=== PATIENT | male | born 1960 | race Caucasian/White ===

== ENCOUNTER → 2020-09-29 10:43 | Outpatient (BNVA) | payer SELFPAY | PROVIDERS: Visit Provider Dermatology | DX: Z01.89 Encounter for other specified special examinations (principal) ==

== ENCOUNTER → 2020-10-22 15:27 | Outpatient (BNVA) | payer MEDICAID, SELFPAY | PROVIDERS: Visit Provider Nurse Practitioner Family | DX: D64.9 Anemia, unspecified (principal); E55.9 Vitamin D deficiency, unspecified; E61.1 Iron deficiency; R19.5 Other fecal abnormalities | CPT/HCPCS: 82728; 83550; 85025 ==

== ENCOUNTER → 2020-10-26 08:32 | Outpatient (BNVA) | payer MEDICAID, SELFPAY | PROVIDERS: PCP Nurse Practitioner Family; Visit Provider Nurse Practitioner Family | DX: D64.9 Anemia, unspecified (principal); E61.1 Iron deficiency; R19.5 Other fecal abnormalities; R10.9 Unspecified abdominal pain; R10.84 Generalized abdominal pain; E55.9 Vitamin D deficiency, unspecified | CPT/HCPCS: 82270; 85025; 87506 ==

== ENCOUNTER 2020-11-05 09:29 | Outpatient (CLI) | payer MEDICAID, SELFPAY ==
[2020-11-05 10:05] LABS: Basophils % 0.4 %; Eosinophils # 0.2 10^3/uL (0.0-0.8); Eosinophils % 2.7 %; Hematocrit 33.7 % (42.0-52.0); Hemoglobin 9.4 g/dL (11.7-16.6); Lymphocytes # 2.1 10^3/uL (0.8-4.8); Mean Corpuscular HGB Conc 27.9 g/dL (30.0-36.0); Mean Corpuscular Volume 71.9 fL (80-94); Mean Platelet Volume 8.5 fL (7.4-10.4); Monocytes # 0.5 10^3/uL (0.2-0.9); Monocytes % 6.5 %; Neutrophils # 4.98 10^3/uL (1.8-7.7); Nucleated Red Blood Cells % 0 %; Platelet Count 358 10^3/cmm (130-400); Red Blood Count 4.69 10^6/uL (4.1-5.3); White Blood Count 7.9 10^3/uL (4.0-10.0)
[2020-11-05 10:45] LABS: Vitamin B12 651 pg/mL (232-1245)
[2020-11-05 11:50] LABS: Folate Level > 20.0 ng/mL (4.5-32.2)
--- NOTE | 2020-11-05 12:54 | ONC CON_ITS ---
Dr. Carr New Patient Note Patient: Vincent Casas Unit #: [id number]: 1960 Dicatated By: Rosemarie Carr M.D.Date of Visit: Nov 05, 2020 Onc MED New Patient/Consult Referring Physician: Marcelo Roberts History of Present Illness: Mr. Vincent Casas, is a 60-year-old gentleman with a history of progressive dyspnea on exertion, palpitation, epigastric/mid abdominal pain, dark-colored stools but no constipation he was evaluated by PMD recently and his lab work-up done on September 29, 2020 showed white blood count 8.5 hemoglobin 8.7 hematocrit 30.6 platelets 383,000 MCV 68.2 with a normal differential, iron studies done on October 22, 2020 shows ferritin 5, iron saturation 2.6, iron 13, TIBC 490, consistent with iron deficiency, patient was started on gkvo-rbx-wwbtxps oral iron 2 tablets a day and his repeat CBC on October 22, 2020 shows white blood count 6.9 hemoglobin 8.5 g hematocrit 27.2 platelets 395,000 MCV 64.1. Patient is tolerating oral iron well but still with off and on epigastric pain but no constipation, no fresh blood per rectum, no hemoptysis or hematemesis, no jaundice, no peripheral lymphadenopathy, no night sweats, no weight loss. Denies any hematuria or nosebleed. Never had colonoscopy done before, no family history of colon cancer. Denies smoking or alcohol use but showed tobacco, Patient denies any fever chills denies any nausea or vomiting denies any diarrhea or constipation, denies any dizziness or lightheadedness, denies any shortness of breath or palpitation at rest. Denies any headaches denies any peripheral neuropathy denies any history of anemia or blood transfusions in the past Past Medical History: Mr. Casas's medical history consists of vitamin D deficiency. Past Surgical History: There is no documented surgical history. Medications: B Complex 1 Tablet Oral daily, Daily Multiple Vitamins 1 Tablet Oral daily, Ferrous Sulfate 1 Tablet (of 325 (65 fe) mg) Oral daily, Weekly-D 1 Capsule (of 1.25 mg ) Oral q 7 days Allergies: No Known Allergies. Social History: Mr. Casas is . Mr. Casas has never smoked. He has no history of drinking. uses chewing tobacco daily. Family History: Mr. Casas's mother is alive. Mr. Casas's father at age 72. Review Of Symptoms: Review of Systems is not available for this patient. Vital Signs: Performed on Nov 05, 2020 11:29: 2, 28.26, 2.12 sq.m, 71 in, 97 %, 82 /min, 16 /min, 146/84 mm(hg) (HIGH), 98.7 F, and 202.6 lbs (HIGH). Performance Status: 0 - Fully active, able to carry on all predisease activities without restrictions. (ECOG) Physical Examination: ENMT - No mouth sores, no thrush, no jaundice no cervical lymphadenopathy, Respiratory - Lungs are clear to auscultation, Cardiovascular - Regular rate and rhythm of heart, Abdomen - Soft, bowel sounds present, No focal tenderness or rebound tenderness or mass palpable, Extremities - No visible edema. Lab/Imaging: Most recent lab results are not available for this patient. Impression: Iron deficiency anemia etiology, most likely due to chronic GI blood loss as his stool for occult bleeding were positive, his lab work-up done on September 29, 2020 showed white blood count 8.5 hemoglobin 8.7 hematocrit 30.6 platelets 383,000 MCV 68.2, iron studies done on October 22, 2020 confirmed ferritin 5, iron saturation 2.6%, iron 13, TIBC 490,B12 651, patient was started on oral iron by PMD on October 22, 2020 Plan: Discussed with patient regarding his labs showed white blood count 7.9 hemoglobin 9.4 g hematocrit 33.7 platelets 358,000 MCV 71.9 , Clinically, patient is feeling well, more energetic since on oral iron Patient is on ojsn-ukx-qrktqen oral iron since October 22, 2020, tolerating well. Patient has already been referred to Dr. Regalado for EGD and colonoscopy for iron deficiency anemia and Hemoccult-positive stools. As far as etiology of iron deficiency anemia is concerned, most likely due to chronic GI blood loss due to GI malignancy like colon cancer or peptic ulcer disease or hemorrhoids or diverticular bleed or small bowel AVMs or malabsorption. Patient was advised to take it easy, until his hemoglobin normalized In the meantime patient will continue with xsrm-qwi-aoikzpn oral iron pills, patient was advised to take 2 pills on empty stomach for better absorption and then he will return to clinic in 1 month with CBC and iron studies and will review his EGD and colonoscopy report Signed By: Rosemarie Carr M.D. <<Signature on File>>
== END 2020-11-05 09:30 | disposition home or self-care (01) ==
LOC: ONCMED 09:33
PROVIDERS: PCP Nurse Practitioner Family; Visit Provider Internal Medicine Hematology & Oncology
DX: D50.0 Iron deficiency anemia secondary to blood loss (chronic) (principal); E53.8 Deficiency of other specified B group vitamins; K90.9 Intestinal malabsorption, unspecified; Z79.899 Other long term (current) drug therapy
CPT/HCPCS: 36415; 82607; 82746; 85025; 99204

== ENCOUNTER → 2020-11-18 08:20 | Outpatient (BNVA) | payer MEDICAID, SELFPAY | PROVIDERS: PCP Nurse Practitioner Family; Visit Provider Surgery | DX: Z01.812 Encounter for preprocedural laboratory examination (principal); Z11.52 Encounter for screening for COVID-19; Z20.822 Contact with and (suspected) exposure to COVID-19 | CPT/HCPCS: 87635 ==

== ENCOUNTER 2020-11-23 06:31 | Day surgery (SDC) | payer MEDICAID, SELFPAY ==
[2020-11-18 13:49] VITALS: BMI 28.4
--- NOTE | 2020-11-23 06:52 | W.PM.OPSUD ---
Surgery/Procedure H&P Update DATE OF PROCEDURE: November 23, 2020 DATE H&P PERFORMED: 11/13/20 H&P UPDATE INFORMATION: I have reviewed H&P completed within last 30 days, I have examined patient prior to procedure and No changes to prior documentation PLANNED PROCEDURE: Operation Date: 11/23/20 08:00 Proposed Procedures p EGD/colon 52351 31078 D50.9(Not Applicable) - Otis Regalado MD s Colonoscopy(Not Applicable) - Otis Regalado MD
--- NOTE | 2020-11-23 06:53 | ANES.PREANE2 ---
Pre-Anesthetic Assessment Pre-Anesthetic Assessment: Height/Weight: Height 1.8 m Weight 92.533 kg Preop Diagnosis: anemia Proposed Procedure: Operation Date: 11/23/20 08:00 Proposed Procedures p EGD/colon 98383 90298 D50.9(Not Applicable) - Otis Regalado MD s Colonoscopy(Not Applicable) - Otis Regalado MD Familial anesthetic complications: None (no hx of anesthesia) Was Beta Karen taken within 24 hours: N/A Was Clonidine taken within 24 hours: N/A Last intake: > 8 HRS Social: Social History: No alcohol and No tobacco Exam: Pre-Anes Outpt Exam: alert, oriented x 3, clear to auscultation bilaterally and regular rate & rhythm Airway: Cervical ROM: WNL MP: 2 Dentition: Chipped CV/HEM: CV/HEM: Anemia GI: Comments: BRBPR Anesthetic Plan: ASA status: 1 Anesthesia: MAC Risk of > 500 ml blood loss (7ml/kg in children): No PFSH Anesthesia PFSH: Medical History Asthma Iron deficiency anemia Surgical History No significant past surgical history Family History Brother Hypertension Social History Smoking and tobacco status: never smoked Second hand smoke exposure: No Smoking risk assessment/counseling performed?: Yes Alcohol intake: never Desire information about alcohol rehabilitation?: No Counseling given: No Desire information about substance/drug rehabilitation?: No Counseling given: No Adopted: No Caregiver/support person: No Lives independently: Yes Household members: spouse Housing: House Marital status: Number of children: 2 Highest education level completed: High School Graduate service: No Current occupational status: employed History of recent travel: No Data Anesthesia Cardiac Studies: No Data to Display
[2020-11-23 07:06] VITALS: BP 143/91; PULSE 79; RESP 18; TEMP 36.3; O2SAT 97
[2020-11-23] MEDS: sodium chloride 0.9% 1,000 ML 30 ML IV (07:24)
[2020-11-23 08:27] VITALS: BP 100/68; PULSE 78; RESP 16; TEMP 36.4; O2SAT 97
[2020-11-23 08:40] VITALS: BP 108/68; PULSE 62; RESP 16; O2SAT 97
--- NOTE | 2020-11-23 09:18 | CT_ITS ---
WS: [id number] CT CHEST, ABDOMEN AND PELVIS WITH CONTRAST HISTORY: ascending colon mass TECHNIQUE: Contiguous 5 mm axial imaging performed through the chest, abdomen and pelvis with IV cont rast, oral contrast has been provided. Coronal and sagittal reformats chest. Coronal and sagittal ref ormats through the abdomen and pelvis. All CT scans at [facility] use at least one of the se dose optimization techniques: automated exposure control; mA and/or kV adjustment per patient size (includes targeted exams where dose is matched to clinical indication); or iterative reconstruction. CONTRAST: Omnipaque 300; 95 mL IV. DLP: 1576.98 mGy.cm COMPARISON: None available. Chest CT: Small soft tissue nodules along the RIGHT minor fissure most likely intrapulmonary nodules which are benign. The largest measures 5 mm. No mass. No pneumonia. No pericardial or pleural effusio ns. Mild atherosclerosis of aorta. Normal size pulmonary artery and aorta. Normal size heart. No hiat al hernia. Abdomen CT: Liver is normal size. No metastatic lesions within the liver. No bile duct dilatation. Po rtal vein is patent. Spleen, gallbladder, pancreas and adrenal glands are normal. No renal mass or ob struction. Very mild atherosclerosis aorta. No aneurysm. No ascites. Soft tissue mass extends over length of 5.6 cm in the ascending colon. Transverse diameter 4.7 cm. Th ere is partial intussusception at the site of the mass suggesting there is a lead component. There is no obstruction. There are numerous small adjacent lymph nodes along the ascending colon. Largest lym ph nodes measures 5 mm. The appendix is normal. There is no obstruction. Oral contrast is noted on wali th sides of the ascending colon mass. Pelvic CT: Normally distended urinary bladder. No free fluid or ascites. Normal prostate gland. No in guinal lymph nodes. Bilateral inguinal canals are patent. No metastatic lesions are noted within the visualized bone. CT/CT chest abd pel w con* IMPRESSION: 1. Ascending colon neoplasm extends over a length of 5.6 cm x 4.7 cm transvers carmelo. Focal intussusception of the ascending colon at the site of the mass. 2. Numerous small lymph nodes adjacent to the ascending colon suspicious for m etastatic disease. 3. No metastatic disease to the liver or adrenal glands.
[2020-11-23 09:52] LABS: Basophils % 0.4 %; Eosinophils # 0.2 10^3/uL (0.0-0.8); Eosinophils % 2.5 %; Hematocrit 41.3 % (42.0-52.0); Lymphocytes # 1.8 10^3/uL (0.8-4.8); Lymphocytes % 24.2 %; Mean Corpuscular HGB Conc 29.1 g/dL (30.0-36.0); Mean Corpuscular Volume 79.1 fl (80-94); Mean Platelet Volume 9.6 fL (7.4-10.4); Monocytes # 0.6 10^3/uL (0.2-0.9); Monocytes % 7.4 %; Neutrophils # 4.94 10^3/uL (1.8-7.7); Neutrophils % 65.2 %; Nucleated Red Blood Cells % 0 %; Platelet Count 312 10^3/cmm (130-400); Red Blood Count 5.22 10^6/uL (4.1-5.3); White Blood Count 7.6 10^3/uL (4.0-10.0)
[2020-11-23 10:37] LABS: Slide Review Slide Review Perform
[2020-11-23] MEDS: iohexol 300 mg/mL 100 mL Btl IV (10:41)
[2020-11-23] MEDS: iohexol 300 mg/mL 50 mL Btl PO (10:42)
[2020-11-23 10:51] LABS: Carcinoembryonic Antigen 0.9 ng/mL (0.0-4.7)
[2020-11-23 11:02] LABS: Alanine Aminotransferase 25 U/L (0-41); Albumin Level 4.6 g/dL (3.5-5.2); Alkaline Phosphatase 65 IU/L (40-130); Anion Gap 17.6 (5-19); Aspartate Amino Transferase 16 U/L (0-40); Blood Urea Nitrogen 18 mg/dL (6-20); Carbon Dioxide 21 mmol/L (22-29); Chloride 103 mmol/L (98-107); Globulin 2.5 g/dL (1.3-4.6); Glomerular Filtration Rate 86.4 mL/min (90-130); Glucose 81 mg/dL (65-115); Osmolality Calculated 285 mOsm/kg (285-295); Potassium 4.6 mmol/L (3.5-5.1); Sodium 137 mmol/L (136-145); Total Bilirubin 0.6 mg/dL (0.15-1.2); Total Protein 7.1 g/dL (6.6-8.7)
--- NOTE | 2020-11-23 15:08 | ANE.PACU2 ---
Inpatient post-anesthesia follow up: Airway intact: Yes Vital signs: Temperature 97.6 F Pulse Rate 62 Respiratory Rate 16 Blood Pressure 108/68 Pulse Oximetry 97 Oxygen Delivery Me thod Room Air Oxygen Flow Rate Fraction of Inspir ed Oxygen Hydration adequate: Yes Nausea and vomiting: No Pain level: 1 Mental status: Baseline
[2020-12-07 09:22] LABS: Miscellaneous Test See Scanned Lab Rpt
== END 2020-11-23 10:29 | disposition home or self-care (01) ==
PROVIDERS: PCP Nurse Practitioner Family; Visit Provider Surgery
PROC: 0DJ08ZZ Inspection of Upper Intestinal Tract, Via Natural or Artificial Opening Endoscopic (ICD-10-PCS; CPT 43235; principal; 2020-11-23 08:00)
PROC: 0DJD8ZZ Inspection of Lower Intestinal Tract, Via Natural or Artificial Opening Endoscopic (ICD-10-PCS; CPT 45378; 2020-11-23 08:00)
DX: D50.9 Iron deficiency anemia, unspecified (principal); Z80.0 Family history of malignant neoplasm of digestive organs; K29.70 Gastritis, unspecified, without bleeding; C18.2 Malignant neoplasm of ascending colon; D12.5 Benign neoplasm of sigmoid colon
CPT/HCPCS: 43235; 45380; 45381; 45385; 71260; 74177; 80053; 82378; 85025; 88305; 88341; 88342; 96360; 96361; J2704; J7030; Q9967

== ENCOUNTER → 2020-11-27 10:25 | Outpatient (BNVA) | payer OTHER, SELFPAY | PROVIDERS: PCP Nurse Practitioner Family; Visit Provider Surgery | DX: Z11.52 Encounter for screening for COVID-19 (principal) | CPT/HCPCS: 87635 ==

== ENCOUNTER 2020-12-02 16:34 | Inpatient (IN) | payer MEDICAID, SELFPAY ==
[2020-12-01 09:22] VITALS: BMI 27.8
[2020-12-02] VITALS (17 sets, daily range): BP systolic 112–144; BP diastolic 66–88; PULSE 57–87; RESP 14–18; TEMP 36.4–36.6; O2SAT 95–99; BMI 27.8
--- NOTE | 2020-12-02 09:52 | ECG_ITS ---
[facility] Test Date: 2020-12-02 Pat Name: Vincent Casas Department: Room: Gender: Male Mental Health Specialist: : 1960 Requested By: Bigg Strong Order Number: [id number] Epifanio MD: BRIE CLEARY Measurements Intervals Happy Rate: 74 P: 42 MT: 160 QRS: -32 QRSD: 80 T: 19 QT: 380 QTc: 423 Interpretive Statements SINUS RHYTHM WITH SINUS ARRHYTHMIA MARKED LEFT AXIS DEVIATION [QRS AXIS < -30] No previous ECG available for comparison Electronically Signed On 12-02-2020 21:10:39 CDT by BRIE CLEARY [id number]
--- NOTE | 2020-12-02 10:19 | ANES.PREANE2 ---
Pre-Anesthetic Assessment Pre-Anesthetic Assessment: Height/Weight: Height 1.8 m Weight 90.718 kg Temp Pulse Resp BP Pulse Ox 97.9 F 87 18 131/88 95 12/02/20 10:11 12/02/20 10:11 12/02/20 10:11 12/02/20 10:11 12/02/20 10:11 Preop Diagnosis: Ascending colon cancer Proposed Procedure: Operation Date: 12/02/20 11:05 Proposed Procedures p Laparoscopic Right Hemicolectomy 26132 C18.2(Not Applicable) - Otis Regalado MD Was Beta Karen taken within 24 hours: N/A Was Clonidine taken within 24 hours: N/A Last intake: Intake Last Liquid Date 12/01/20 Last Liquid Time 22:00 Last Solid Date 11/30/20 Last Solid Time 20:00 Social: Social History: No alcohol and No tobacco Exam: Pre-Anes Outpt Exam: alert, oriented x 3, clear to auscultation bilaterally and regular rate & rhythm Airway: Submandibular: WNL Cervical ROM: WNL MP: 2 Dentition: Chipped CV/HEM: CV/HEM: Anemia Anesthetic Plan: ASA status: 2 Anesthesia: General Risk of > 500 ml blood loss (7ml/kg in children): No PFSH Anesthesia PFSH: Medical History (Updated 11/27/20 @ 12:19 by Otis Regalado MD) Asthma Colon cancer, ascending Surgical History H/O esophagogastroduodenoscopy (11/23/20) Status post colonoscopy (11/23/20) Family History Brother Hypertension Social History Second hand smoke exposure: No Smoking risk assessment/counseling performed?: Yes Alcohol intake: never Desire information about alcohol rehabilitation?: No Counseling given: No Desire information about substance/drug rehabilitation?: No Counseling given: No Adopted: No Caregiver/support person: No Lives independently: Yes Household members: spouse Housing: House Marital status: Number of children: 2 Highest education level completed: High School Graduate service: No Current occupational status: employed History of recent travel: No Data Anesthesia Cardiac Studies: No Data to Display
[2020-12-02] MEDS: sodium chloride 0.9% 1,000 ML 30 ML IV (10:43)
--- NOTE | 2020-12-02 11:04 | W.PM.OPSUD ---
Surgery/Procedure H&P Update DATE OF PROCEDURE: December 02, 2020 DATE H&P PERFORMED: 11/27/20 H&P UPDATE INFORMATION: I have reviewed H&P completed within last 30 days, I have examined patient prior to procedure and No changes to prior documentation PREOP DIAGNOSIS: Ascending colon cancer PLANNED PROCEDURE: Operation Date: 12/02/20 11:05 Proposed Procedures p Laparoscopic Right Hemicolectomy 49465 C18.2(Not Applicable) - Otis Regalado MD
--- NOTE | 2020-12-02 15:09 | P.OP_ITS ---
Operative Report Date of procedure: December 02, 2020 Pre-op Diagnosis: Adenocarcinoma ascending colon Post-op Diagnosis: Adenocarcinoma of the ascending colon No evidence of peritoneal carcinomatosis No evidence of liver metastasis Procedure Done: Laparoscopic extended right hemicolectomy with extracorporeal ileocolic stapled wyud-na-yhww anastomosis Specimens removed/disposition: Extended right hemicolectomy specimen including ileum, cecum, appendix, ascending colon, proximal two thirds of transverse colon Surgeon: Otis Regalado Anesthesia: General Estimated blood loss (mL): 25 IV fluids (mL): 1,000 Urine output (mL): 200 Condition: stable Disposition: PACU Procedure: The patient was taken to the operating room and placed in supine position under general anesthesia after IV antibiotic had been administered. A Ching catheter was placed and the abdomen was prepped and draped in a sterile manner. A 2 cm midline supraumbilical incision was made and using open Galvan technique the peritoneal cavity was entered and an 11 mm port was placed and 15 mm of pneumoperitoneum was created. 10 mm 30? scope was introduced. 5 mm port was placed in the right upper quadrant, left upper quadrant and in the suprapubic area under direct visualization. The patient was placed in Trendelenburg position and steep tilt to the left placing the small bowel in the left side within the peritoneal cavity and the transverse colon was retracted superiorly. The cecum was retracted laterally and the tenting of the ileocolic pedicle was noted. The peritoneum overlying the pedicle was opened near the SMA and a window created posterior to the pedicle over the third portion of the duodenum. Dissection was carried superiorly and lateral to the duodenum along the avascular plane. Using Endoseal the ileocolic pedicle was divided. The avascular plane was dissected laterally towards the right paracolic gutter and superiorly towards the hepatic flexure. The stomach was retracted superiorly and the transverse colon retracted inferiorly and the anterior leaflet of the greater omentum was opened to enter the lesser sac. Using energy device the omentum was divided up to the hepatic flexure to completely mobilize the transverse colon from the stomach as well divide the greater omentum from the remaining portion of the transverse colon. The transverse mesocolon was divided using Endoseal and this was continued medially. The right and left branch of mid colic vessels were skeletonized just anterior to the head of the pancreas and divided with Endoseal. The anterior leaflet of the greater omentum was divided near the midpoint of the transverse colon to enter the lesser sac. The dissection was carried along the line of Toldt until the ascending colon and down to ileum to completely free it up. The mesentery of the terminal ileum was divided using LigaSure. 20 cc of saline mixed with 20 cc of 0.5% Marcaine mixed with 20 cc of Exparel wa s injected in the midclavicular line under laparoscopic visualization for a TAP block. At this point the pneumoperitoneum was released and the mobilized colon and small bowel was exteriorized through the umbilical incision which had been extended and a wound protector had been placed. Interrupted 4-0 Vicryl suture was placed to approximate the ileum to the transverse colon and enterotomies were created on the transverse colon and small bowel and and 75 mm blue load NURA stapler was introduced and fired creating a liet-od-fgwn stapled anastomosis. There was no bleeding noted from the staple line and enterotomies were grasped with Allis clamps and another load of 75 mm blue load NURA stapler was fired to resect the specimen distal to the enterotomies. The bowel was reintroduced into the peritoneal cavity and the staple line was covered with omentum. All ports were removed under direct visualization and there was no bleeding noted from the port sites. The fascia at the midline incision was closed using running #1 loop PDS. The wound was irrigated with saline, and subcutaneous tissue approximated using 3-0 Vicryl suture and skin at all 4 port sites were closed with 4-0 Monocryl and Dermabond. The patient was transferred to the recovery room in stable condition with a Ching catheter.
[2020-12-02] MEDS: HYDROmorphone 1 mg/mL INJ 1 mL 0.5 MG IVP ×2 (15:29→16:26)
--- NOTE | 2020-12-02 16:41 | SUR.PHASEI ---
PT RESTING QUIETLY WITH GOOD RESP EFFORT PT ON 3NC SATS 96-97% NO DISTRESS NOTED ABD SOFT 3 SITES D/I WITH DERMABOND GREEN TO DD WITH YELLOW URINE, IV PATENT UPDATED REPEATEDLY, INFORM ED PT IS SLEEPING , VSS WAITING FOR ROOM TO BE CLEANED. SEE EARLIER MEDS GIVEN FOR PAIN, PT HAS NO PAIN NOW, WILL CALL REPORT TO THE FLOOR.
--- NOTE | 2020-12-02 17:50 | ANE.PACU2 ---
Inpatient post-anesthesia follow up: Airway intact: Yes Vital signs: Temperature 97.6 F Pulse Rate 63 Respiratory Rate 15 Blood Pressure 127/72 Pulse Oximetry 97 Oxygen Delivery Me thod Nasal Cannula Oxygen Flow Rate 3 Fraction of Inspir ed Oxygen Hydration adequate: Yes Nausea and vomiting: No Pain level: 2 Mental status: Baseline
[2020-12-02] MEDS: famotidine 20 mg/2 mL INJ IVP (18:25)
[2020-12-02] MEDS: morphine 4 mg/mL SDV 1 mL 3 MG IVP ×2 (18:25→22:31)
[2020-12-02] MEDS: sennosides-docusate Tablet 1 TAB PO (18:25)
[2020-12-02] MEDS: D5-NS 0.45% + KCL 20 mEq 20 MEQ/1,000 ML BAG 100 MEQ IV (18:26)
[2020-12-02] MEDS: metroNIDAZOLE IV 500 MG/100 ML PREMIX 100 MG IV (22:31)
[2020-12-02] MEDS: HYDROcodone-acetaminophen 5-325 mg Tablet 1 TAB PO (22:31)
[2020-12-03] VITALS (11 sets, daily range): BP systolic 123–171; BP diastolic 70–88; PULSE 60–82; RESP 14–18; TEMP 36.3–37.2; O2SAT 94–97
[2020-12-03 04:01] LABS: Basophils % 0.1 %; Hematocrit 39.3 % (42.0-52.0); Hemoglobin 11.8 g/dL (11.7-16.6); Lymphocytes # 0.9 10^3/uL (0.8-4.8); Lymphocytes % 9.7 %; Mean Corpuscular Hemoglobin 23.8 pg (28.0-34.0); Mean Corpuscular Volume 79.4 fl (80-94); Mean Platelet Volume 9.1 fL (7.4-10.4); Monocytes # 0.3 10^3/uL (0.2-0.9); Monocytes % 3.3 %; Neutrophils # 7.86 10^3/uL (1.8-7.7); Neutrophils % 86.6 %; Nucleated Red Blood Cells % 0 %; Platelet Count 313 10^3/cmm (130-400); Red Blood Count 4.95 10^6/uL (4.1-5.3)
[2020-12-03] MEDS: D5-NS 0.45% + KCL 20 mEq 20 MEQ/1,000 ML BAG 100 MEQ IV (04:19)
[2020-12-03] MEDS: HYDROcodone-acetaminophen 5-325 mg Tablet 1 TAB PO ×2 (04:28→12:03)
[2020-12-03 04:32] LABS: Anion Gap 16.9 (5-19); Blood Urea Nitrogen 18 mg/dL (6-20); Calcium 8.2 mg/dL (8.5-10.5); Carbon Dioxide 19 mmol/L (22-29); Chloride 106 mmol/L (98-107); Glomerular Filtration Rate 68.5 mL/min (90-130); Glucose 175 mg/dL (65-115); Osmolality Calculated 290 mOsm/kg (285-295); Potassium 4.9 mmol/L (3.5-5.1); Slide Review Slide Review Perform; Sodium 137 mmol/L (136-145)
[2020-12-03] MEDS: metroNIDAZOLE IV 500 MG/100 ML PREMIX 100 MG IV (05:57)
[2020-12-03] MEDS: famotidine 20 mg/2 mL INJ IVP ×2 (05:57→18:24)
[2020-12-03] MEDS: morphine 4 mg/mL SDV 1 mL 3 MG IVP (05:57)
[2020-12-03] MEDS: ondansetron 2 mg/ML SDV 2 mL 4 MG IVP (06:01)
[2020-12-03] MEDS: sennosides-docusate Tablet 1 TAB PO ×2 (09:03→18:24)
--- NOTE | 2020-12-03 10:09 | PC.NURSE ---
Removed eric catheter. 9mL NS drained from balloon. Patient tolerated well. 600mL of Clear yellow urine drained from eric bag. Urinal at bedside for patient to use.
--- NOTE | 2020-12-03 10:15 | PM.PN ---
Subjective Subjective: Interval history: Patient had significant pain overnight which was controlled with morphine and [place] and he had some nausea, no vomiting, no flatus or BM. Good urine output output overnight Vitals/I&O/Wt Last Vital Signs Temp 98.9 F 12/03/20 07:31 Pulse 73 12/03/20 07:31 Resp 14 12/03/20 07:31 BP 141/70 12/03/20 07:31 Pulse Ox 96 12/03/20 07:31 12/02/20 12/03/20 12/03/20 22:59 06:59 14:59 Intake Total 401 / 2535.309 7231.333 / 1709.333 360 / 360 Output Total 425 / 1825 1400 / 1825 600 / 600 Balance -24 / -115.667 -151.667 / -115.667 -240 / -240 Weight last 48 hrs Weight 200 lb Physical Exam Narrative: EXAM NARRATIVE: Abdomen: Soft, tender, nondistended, incision clean dry and intact Urinary Catheter Management^: Ching: Cath Placed During This Visit: yes Reason for Continuing Indwelling Catheter: Required Immobilization for Trauma or Surgery or Anesthesia Urinary Catheter Date of Insertion: 12/02/20 Urinary Catheter Time of Insertion: 12:35 Data : 12/03/20 03:10 12/03/20 03:10 A&P Assessment and plan (1) S/P right hemicolectomy: Status post extended right hemicolectomy with postop ileus DC Ching DC IV fluids DC IV antibiotics after 2 postop doses Start clear liquid diet IV fluids at 30 cc/h Ambulate ad maria alejandra. IS Lovenox/ SCD for DVT prophylaxis Pepcid for GI prophylaxis Morphine [place] Tylenol for pain control Senna S for bowel regimen Patient will need greater than 2 nights of inpatient stay to ensure resolution of ileus Status: Acute Attestations Medical Necessity Statement*: Postop ileus requiring continued inpatient stay Coding Level of Care Code Acute Online Publisher for Johan Romero Diagnoses S/P right hemicolectomy Z90.49
--- NOTE | 2020-12-03 11:10 | PC.NURSE ---
The patient has been walking in his room.
--- NOTE | 2020-12-03 11:19 | PC.CHAP ---
Pastoral Care Encounter/Spiritual Assessment Type of Contact [] Declined head correction officer visit [] Patient/Family/Request visit [] Outpatient visit [] Follow-up visit [] Physician referral [] Code/Alert [x] Routine visit [] Staff referral [] Actively dying [] Patient sleeping [] Family support [] [] Out of room [] Palliative care [] [x] Receiving care in room [] Pre-surgical visit [] Trauma [] Long length of stay [] ICU visit [] Other: Relational/Emotional Strength [x] Patient feels connected with others/family/visitors/staff [] Distress [] Loneliness/isolation [] Abandonment Spirituality of Patient [x] Person of Araseli [] Attends Mosque of their Araseli [x] Believes in Prayer [] Reads Bible or Tenriism materials [] There are Spiritual issues to be addressed Missile Inspector Preflight Interventions [x] Prayer [x] Active listening [x] Non-anxious presence [x] Spiritual/emotional support [] Crisis/trauma care [x] Spiritual counseling [] Bereavement support [] Provided bereavement packet [] Provided Bible/devotional materials [] Provided toy/stuffed animal, coloring book to patient or family member [] Provided Communion [] Anointing/[place] [] Salvation [x] Completed spiritual assessment [] Other: Impact on Illness or Injury [] Angry [x] Fearful [] Anxious [] Often cries [] Exhaustion [] Unable to work [] Unable to attend scientologist [] Unable to walk/stand [] Unable to read [] Unable to drive [] Unable to eat/drink [] Unable to sleep [] Unable to be with family [] Patient intubated [] Other: Summary he has just found out that he cancer, waiting hear doctor about what kind of treatment he will need has a good attitude will go home Time spent with patient 10 mins
[2020-12-03] MEDS: enoxaparin 40 mg/0.4 mL Syringe SUBCUT (18:24)
[2020-12-04] MEDS: HYDROcodone-acetaminophen 5-325 mg Tablet 1 TAB PO (02:10)
[2020-12-04 02:40] LABS: Basophils % 0.2 %; Eosinophils # 0.2 10^3/uL (0.0-0.8); Eosinophils % 1.4 %; Hemoglobin 11.5 g/dL (11.7-16.6); Lymphocytes # 2.7 10^3/uL (0.8-4.8); Lymphocytes % 24.8 %; Mean Corpuscular HGB Conc 31.1 g/dL (30.0-36.0); Mean Corpuscular Hemoglobin 24.5 pg (28.0-34.0); Mean Corpuscular Volume 78.9 fl (80-94); Mean Platelet Volume 8.5 fL (7.4-10.4); Monocytes # 0.8 10^3/uL (0.2-0.9); Neutrophils # 7.14 10^3/uL (1.8-7.7); Neutrophils % 66.4 %; Nucleated Red Blood Cells % 0 %; Platelet Count 310 10^3/cmm (130-400); Red Blood Count 4.69 10^6/uL (4.1-5.3); White Blood Count 10.8 10^3/uL (4.0-10.0)
[2020-12-04 02:47] LABS: Slide Review Slide Review Perform
[2020-12-04 03:11] LABS: Anion Gap 14.1 (5-19); Blood Urea Nitrogen 13 mg/dL (6-20); Calcium 8.4 mg/dL (8.5-10.5); Carbon Dioxide 24 mmol/L (22-29); Chloride 105 mmol/L (98-107); Glomerular Filtration Rate 76.5 mL/min (90-130); Glucose 143 mg/dL (65-115); Osmolality Calculated 291 mOsm/kg (285-295); Potassium 4.1 mmol/L (3.5-5.1); Sodium 139 mmol/L (136-145)
[2020-12-04 03:25] VITALS: BP 160/91; PULSE 76; RESP 16; TEMP 36.7; O2SAT 96
[2020-12-04] MEDS: famotidine 20 mg/2 mL INJ IVP ×2 (05:10→17:54)
[2020-12-04 08:00] VITALS: BP 162/97; PULSE 71; RESP 17; TEMP 36.8; O2SAT 93
[2020-12-04] MEDS: sennosides-docusate Tablet 1 TAB PO ×2 (09:38→17:54)
[2020-12-04] MEDS: D5-NS 0.45% + KCL 20 mEq 20 MEQ/1,000 ML BAG 100 MEQ IV (09:38)
[2020-12-04 12:00] VITALS: BP 168/91; PULSE 73; RESP 17; TEMP 36.9; O2SAT 95
--- NOTE | 2020-12-04 13:34 | PM.PN ---
Subjective Subjective: Interval history: Patient had better night, no nausea, no vomiting, no flatus or BM. Good urine output overnight Vitals/I&O/Wt Last Vital Signs Temp 98.5 F 12/04/20 12:00 Pulse 73 12/04/20 12:00 Resp 17 12/04/20 12:00 BP 168/91 12/04/20 12:00 Pulse Ox 95 12/04/20 12:00 12/03/20 12/04/20 12/04/20 22:59 06:59 14:59 Intake Total 480 / 2080 Balance 480 / 1480 Weight last 48 hrs Weight 200 lb Physical Exam Narrative: EXAM NARRATIVE: Abdomen: Soft, not tender, nondistended, incision clean dry intact Urinary Catheter Management^: Ching: Cath Placed During This Visit: yes, but has since been removed by the nurse Reason for Continuing Indwelling Catheter: Required Immobilization for Trauma or Surgery or Anesthesia Urinary Catheter Date of Insertion: 12/02/20 Urinary Catheter Time of Insertion: 12:35 Date Urinary Catheter Removed: 12/03/20 Time Urinary Catheter Discontinued: 10:17 Data : 12/04/20 01:57 12/04/20 01:57 A&P Assessment and plan (1) S/P right hemicolectomy: Status post extended right hemicolectomy with postop ileus clear liquid diet IV fluids at 30 cc/h Ambulate ad maria alejandra. IS Lovenox/ SCD for DVT prophylaxis Pepcid for GI prophylaxis Morphine [place] Tylenol for pain control Senna S for bowel regimen Patient will need greater than 2 nights of inpatient stay to ensure resolution of ileus Status: Acute Attestations Medical Necessity Statement*: postop ileus requiring continued inpatient stay Coding Level of Care Code Acute Printing Sales Representative for g Fwd Diagnoses S/P right hemicolectomy Z90.49
--- NOTE | 2020-12-04 15:21 | PC.CHAP ---
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 visit [] Patient/Family/Request visit [] Outpatient visit [xx] Follow-up visit [] Physician referral [] Code/Alert [] Routine visit [] Staff referral [] Actively dying [] Patient sleeping [] Family support [] [] Out of room [] Palliative care [] [xx] Receiving care in room [] Pre-surgical visit [] Trauma [] Long length of stay [] ICU visit [] Other: Relational/Emotional Strength [] Patient feels connected with others/family/visitors/staff [] Distress [] Loneliness/isolation [] Abandonment Spirituality of Patient [] Person of Araseli [] Attends Holiness of their Araseli [] Believes in Prayer [] Reads Bible or Christianity materials [] There are Spiritual issues to be addressed Doctor Of Audiology Interventions [] Prayer [] Active listening [] Non-anxious presence [] Spiritual/emotional support [] Crisis/trauma care [] Spiritual counseling [] Bereavement support [] Provided bereavement packet [] Provided Bible/devotional materials [] Provided toy/stuffed animal, coloring book to patient or family member [] Provided Communion [] Anointing/[place] [] Salvation [] Completed spiritual assessment [] Other: Impact on Illness or Injury [] Angry [] Fearful [] Anxious [] Often cries [] Exhaustion [] Unable to work [] Unable to attend pentecostalism [] Unable to walk/stand [] Unable to read [] Unable to drive [] Unable to eat/drink [] Unable to sleep [] Unable to be with family [] Patient intubated [] Other: Summary Follow up needed. Time spent with patient
[2020-12-04] MEDS: enoxaparin 40 mg/0.4 mL Syringe SUBCUT (15:46)
[2020-12-04 15:52] VITALS: BP 162/96; PULSE 71; RESP 17; TEMP 36.6; O2SAT 95
[2020-12-04 20:00] VITALS: BP 168/90; PULSE 68; RESP 17; TEMP 37.2; O2SAT 95
[2020-12-05 00:11] VITALS: BP 147/82; PULSE 76; RESP 18; TEMP 36.9; O2SAT 96
[2020-12-05 03:20] VITALS: BP 149/84; PULSE 68; RESP 16; TEMP 36.8; O2SAT 94
[2020-12-05] MEDS: famotidine 20 mg/2 mL INJ IVP (05:01)
[2020-12-05 07:05] LABS: Basophils % 0.2 %; Eosinophils # 0.3 10^3/uL (0.0-0.8); Eosinophils % 3.5 %; Hematocrit 40.4 % (42.0-52.0); Hemoglobin 12.4 g/dL (11.7-16.6); Lymphocytes # 2.8 10^3/uL (0.8-4.8); Lymphocytes % 32.7 %; Mean Corpuscular HGB Conc 30.7 g/dL (30.0-36.0); Mean Corpuscular Hemoglobin 24.2 pg (28.0-34.0); Mean Corpuscular Volume 78.8 fl (80-94); Mean Platelet Volume 8.7 fL (7.4-10.4); Monocytes # 0.7 10^3/uL (0.2-0.9); Monocytes % 8.7 %; Neutrophils # 4.63 10^3/uL (1.8-7.7); Neutrophils % 54.7 %; Nucleated Red Blood Cells % 0 %; Platelet Count 337 10^3/cmm (130-400); Red Blood Count 5.13 10^6/uL (4.1-5.3); White Blood Count 8.5 10^3/uL (4.0-10.0)
[2020-12-05 07:37] LABS: Blood Urea Nitrogen 10 mg/dL (6-20); Calcium 8.9 mg/dL (8.5-10.5); Carbon Dioxide 25 mmol/L (22-29); Chloride 103 mmol/L (98-107); Glomerular Filtration Rate 98.9 mL/min (90-130); Glucose 92 mg/dL (65-115); Osmolality Calculated 289 mOsm/kg (285-295); Sodium 140 mmol/L (136-145)
[2020-12-05 07:47] VITALS: BP 130/86; PULSE 80; RESP 17; TEMP 36.6; O2SAT 95
[2020-12-05] MEDS: sennosides-docusate Tablet 1 TAB PO (08:11)
--- NOTE | 2020-12-05 11:29 | P.PN_ITS ---
Subjective Subjective: Interval history: Patient doing well denies any pain has not taken any pain medicines yesterday, passing flatus, but no BM, no nausea or vomiting, tolerating full liquid diet Vitals/I&O/Wt Last Vital Signs Temp 97.8 F 12/05/20 07:47 Pulse 80 12/05/20 07:47 Resp 17 12/05/20 07:47 BP 130/86 12/05/20 07:47 Pulse Ox 95 12/05/20 07:47 12/04/20 12/05/20 12/05/20 22:59 06:59 14:59 Intake Total 1000 / 1300 300 / 1300 Balance 1000 / 1300 300 / 1300 Physical Exam Narrative: EXAM NARRATIVE: Abdomen: Soft, nontender, not from incisions healing well Urinary Catheter Management^: Ching: Cath Placed During This Visit: yes, but has since been removed by the nurse Reason for Continuing Indwelling Catheter: Required Immobilization for Trauma or Surgery or Anesthesia Urinary Catheter Date of Insertion: 12/02/20 Urinary Catheter Time of Insertion: 12:35 Date Urinary Catheter Removed: 12/03/20 Time Urinary Catheter Discontinued: 10:17 Data : 12/05/20 06:10 12/05/20 06:10 A&P Assessment and plan (1) S/P right hemicolectomy: Status post extended right hemicolectomy with postop ileus DC home on full liquid diet, advance as tolerated once he starts having bowel movements. Patient has been discharged home today since his mother on the day of his surgery and is having a in couple of days in [place] Status: Acute Attestations Medical Necessity Statement*: DC home today Coding Level of Care Code Acute Specifications Writer for Chg Fwd Diagnoses S/P right hemicolectomy Z90.49
[2020-12-05 11:30] VITALS: BP 130/86; PULSE 80; RESP 17; TEMP 36.6; O2SAT 95
--- NOTE | 2020-12-05 11:30 | P.DS_ITS ---
Discharge Providers Date of Admission: 12/02/20 16:34 Date of Discharge: December 05, 2020 Attending Provider at Admission: Otis Regalado MD Attending Provider at Discharge: Otis Regalado MD Primary Care Provider: MARANDA Roberts Diagnoses at Discharge Discharge Diagnosis (1) S/P right hemicolectomy: Status: Acute Permanent problem details: Extended for ascending colon cancer Reason for Visit Reason for Visit: colon cancer Hospital Course Hospital Course This a 60-year-old male with iron deficiency anemia noted on colonoscopy to have ascending colon cancer. Patient underwent extended right hemicolectomy. By postop day 3 he was passing flatus and tolerating a full liquid diet. His vital signs are stable. His incisions are clean dry and intact. Physical Exam Urinary Catheter Management^: Ching: Cath Placed During This Visit: yes, but has since been removed by the nurse Reason for Continuing Indwelling Catheter: Required Immobilization for Trauma or Surgery or Anesthesia Urinary Catheter Date of Insertion: 12/02/20 Urinary Catheter Time of Insertion: 12:35 Date Urinary Catheter Removed: 12/03/20 Time Urinary Catheter Discontinued: 10:17 Discharge Data Data Completed and Pending: Pending at discharge Category Date Time Status Pathology: Surgic al [PTH] Routine Pth 12/02/20 14:57 Received Labs from last 24 hours 12/05/20 12/05/20 06:10 06:10 WBC 8.5 RBC 5.13 Hgb 12.4 Hct 40.4 L MCV 78.8 L MCH 24.2 L MCHC 30.7 RDW Not Reportable Plt Count 337 MPV 8.7 Neut % (Auto) 54.7 Lymph % (Auto) 32.7 [place] % (Auto) 8.7 Eos % (Auto) 3.5 Baso % (Auto) 0.2 Neut # (Auto) 4.63 Lymph # (Auto) 2.8 [place] # (Auto) 0.7 Eos # (Auto) 0.3 Baso # (Auto) 0.0 Nucleated RBC % (a uto) 0 Nucleated RBCs # 0.0 Sodium 140 Potassium 4.0 Chloride 103 Carbon Dioxide 25 Anion Gap 16.0 BUN 10 Creatinine 0.8 GFR Calculation 98.9 Glucose 92 Calculated Osmolal ity 289 Calcium 8.9 Vitals: Last Vital Signs Temp 97.8 F 12/05/20 11:30 Pulse 80 12/05/20 11:30 Resp 17 12/05/20 11:30 BP 130/86 12/05/20 11:30 Pulse Ox 95 12/05/20 11:30 Discharge Plan Discharge Patient Disposition: Home Condition: Stable Prescriptions: New hydrocodone-acetaminophen 5-325 mg tablet 1 tab PO Q6H PRN (Reason: pain) Qty: 20 RF: 0 Zofran 4 mg tablet 4 mg PO Q6H PRN (Reason: nausea and vomiting) Qty: 20 RF: 0 Senna with Docusate Sodium 8.6-50 mg tablet 1 tab-cap PO BID Qty: 30 RF: 0 Continued B-complex with vitamin C Tablet 1 tab PO DAILY RF: 0 ferrous gluconate 324 mg (38 mg iron) tablet 324 mg PO BID 30 Days Qty: 60 RF: 2 cholecalciferol (vitamin D3) 1,250 mcg (50,000 unit) capsule 50,000 unit PO .weekly 28 Days Qty: 4 RF: 2 Discontinued erythromycin 500 mg tablet 500 mg PO ONCE 3 Days Qty: 3 RF: 0 Discharge Orders: Discharge Order (Routine); Ordered 12/05/20 Ordered By: Otis Regalado Referrals: Otis Regalado MD [Physician] - 2 weeks (Please call on Monday to schedule an appointment to be seen in two weeks.) Patient Instructions: Hydrocodone/Acetaminophen (By mouth), Laxative, Stimulant (By mouth), Ondansetron (By mouth), Laxative, Stimulant Combination (By mouth), Colectomy (DC), Laparoscopic Bowel Resection (DC), Opioid Safety Activity Restrictions/Additional Instructions: Diet Continue full liquid diet, advance to GI soft diet once you start having bowel movements, increase fluid intake as much as possible. Avoid roughage and red meats. Have 4-5 small meals a day. Activity Avoid strenuous activity for 2 weeks but continue with daily activities including walking as tolerated. Do not lift more than 10 pounds for 2 weeks Return to work/school You can return to work/ school whenever you feel ready as long as you don?t have to lift more than 10 pounds at work. If you have paperwork that needs to be completed for time off from work, please contact my office Driving You can resume driving once you stop using narcotic pain medications, and transition to non-opioid pain medications like Tylenol, Motrin, Aleve, etc. Medications Pain Take opioid pain medications as prescribed and transition to non-opioid pain medications like Tylenol, Motrin, Aleve etc. over the next few days. The goal of the pain medications is to make the pain bearable and not to be pain free since you recently had surgery. Resume all home medications after surgery as per the medication reconciliation list Nausea Nausea is common after surgery, take nausea medications as needed and stay on a liquid bland diet until nausea resolves. Constipation The combination of surgery, anesthesia and pain medications can result in constipation. Take stool softeners as prescribed. If you do not have a bowel movement in 3 days, please take an [id number] laxative like MiraLAX to address the constipation. Shower It is ok to shower but avoid getting the wound wet for 48 hours after surgery. Do not soak in bathtub, swimming pool or hot tub for 2 weeks. Wound care If glue has been used on your incisions after surgery, the glue on the incision will peel slowly over the next two weeks. The stitches used are dissolvable and will not need to be removed. Do not apply antibiotics or other medications on the incision Problems with the wound: you can develop some redness around the incision from bruising after surgery. If there is increasing pain, redness, tenderness around the incision with or without drainage, please contact my office to rule out an infection. Sometimes the skin at the incisions can separate, resulting in reopening of the wound. Cover the wound with antibiotic cream and sterile dressings and contact my office. Contact physician Call the office at [phone] during office hours or go the Emergency Room ?Fever to 100.4 or greater ?Shaking chills ?Pain that increases over time ?Redness, warmth, or pus draining from incision sites ?Persistent nausea or inability to take in liquids Discharge Attestations Time Spent in Discharge Care*: less than 30 min Quality Metrics Clinical Quality Measures During this hospital stay, did patient experience: None Coding Level of Care Code Acute [facility] FW MA note Diagnoses S/P right hemicolectomy Z90.49
[2020-12-05 13:24] VITALS: BP 130/86; PULSE 80; RESP 17; TEMP 36.6; O2SAT 95
[2020-12-17 10:18] LABS: Miscellaneous Test See Scanned Lab Rpt
== END 2020-12-05 13:25 | disposition home or self-care (01) | DRG 331 ==
LOC: MEDSURG 16:35
PROVIDERS: Admitting Provider Surgery; PCP Nurse Practitioner Family; Visit Provider Surgery
PROC: 0DTF4ZZ Resection of Right Large Intestine, Percutaneous Endoscopic Approach (ICD-10-PCS; CPT 44205; principal; 2020-12-02 10:55)
DX: C18.2 Malignant neoplasm of ascending colon (principal); J45.909 Unspecified asthma, uncomplicated; D50.9 Iron deficiency anemia, unspecified
CPT/HCPCS: 36415; 51702; 80048; 85025; 88309; 88341; 88342; 93005; 96365; 96372; 97161; J0690; J1100; J1170; J1650; J2270; J2405; J2704; J2710; J3010; J3490; J7030; S0030

== ENCOUNTER → 2021-03-19 08:35 | Outpatient (BNVA) | payer MEDICAID, SELFPAY | PROVIDERS: PCP Nurse Practitioner Family; Visit Provider Nurse Practitioner Family | DX: D50.9 Iron deficiency anemia, unspecified (principal) | CPT/HCPCS: 83540; 85025 ==

== ENCOUNTER → 2021-08-02 16:06 | Outpatient (BNVA) | payer MEDICAID, SELFPAY | PROVIDERS: PCP Nurse Practitioner Family; Referring Provider Nurse Practitioner Family; Visit Provider Otolaryngology | DX: D49.1 Neoplasm of unspecified behavior of respiratory system (principal) | CPT/HCPCS: 99204 ==

== ENCOUNTER 2021-08-12 10:12 | Day surgery (SDC) | payer MEDICAID, SELFPAY ==
[2021-08-10 11:45] VITALS: BMI 27.8
[2021-08-12] VITALS (7 sets, daily range): BP systolic 147–175; BP diastolic 87–101; PULSE 65–85; RESP 12–18; TEMP 36.3–36.8; O2SAT 93–99
--- NOTE | 2021-08-12 10:49 | W.PM.OPSUD ---
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
[2021-08-12] MEDS: scopolamine 1.5 Patch 1 PATCH TRANSDERMA (10:58)
[2021-08-12] MEDS: sodium chloride 0.9% 1,000 ML 30 ML IV (11:00)
--- NOTE | 2021-08-12 11:07 | P.ANESASSM_ITS ---
Pre-Anesthetic Assessment Height/Weight: Height 1.8 m Weight 90.718 kg Temp Pulse Resp BP Pulse Ox 98.2 F 65 18 161/92 99 08/12/21 10:30 08/12/21 10:30 08/12/21 10:30 08/12/21 10:30 08/12/21 10:30 Preop Diagnosis: Neoplasm of left nasal vestibule Operation Date: 08/12/21 11:25 Proposed Procedures p Excision Nasal Mass/Lesion/11964/D49.1 neoplasm of nasal vestibule(Left) - Maury Calvert MD Familial anesthetic complications: None Was Beta Karen taken within 24 hours: N/A Was Clonidine taken within 24 hours: N/A Last intake: Intake Last Liquid Date 08/11/21 Last Liquid Time 19:00 Last Solid Date 08/11/21 Last Solid Time 19:00 Social No alcohol and No tobacco Exam alert, oriented x 3, clear to auscultation bilaterally and regular rate & rhythm Airway Mallampati: Class III Dentition: chipped and other (missing) Pulmonary None reported CV/HEM None reported None reported Hepatic None reported GI None reported Metabolic None reported Musc/skel None reported Neuropsych None reported Anesthetic Plan ASA status: 1 Anesthesia: General Risk of > 500 ml blood loss (7ml/kg in children): No Medications/Allergies Home Medications Medication Instructions Recorded Confirmed Last Taken Type B-complex with vitamin C 1 tab PO DAILY 10/22/20 08/11/21 12/01/20 History cholecalciferol (vitamin D3) 1,250 50,000 unit PO .weekly 28 Days #4 11/20/20 08/11/21 11/27/20 Rx mcg (50,000 unit) capsule cap ferrous gluconate 324 mg (38 mg 324 mg PO BID 30 Days #60 tab 11/20/20 08/11/21 12/01/20 Rx iron) tablet Allergies Allergy/AdvReac Type Severity Reaction Status Date / Time No Known Allergies Allergy Verified 08/11/21 14:33 Current Medications Generic Name Dose Route Start Last Admin Trade Name Freq PRN Reason Stop Dose Admin Sodium Chloride 1,000 mls @ 30 mls/hr 08/12/21 10:30 08/12/21 11:00 Sodium Chloride 0.9% IV 08/13/21 10:29 30 mls/hr .Q24H MARJORIE Administration PFSH Anesthesia Medical History Asthma Colon cancer, ascending T1 N0 M0 Surgical History H/O esophagogastroduodenoscopy (11/23/20) S/P right hemicolectomy (12/02/20) Extended for ascending colon cancer Status post colonoscopy (11/23/20) Family History Brother Hypertension Social History Smoking and tobacco status: never smoked Second hand smoke exposure: No Smoking risk assessment/counseling performed?: Yes Alcohol intake: never Desire information about alcohol rehabilitation?: No Counseling given: No Desire information about substance/drug rehabilitation?: No Counseling given: No Adopted: No Caregiver/support person: No Lives independently: Yes Household members: spouse Housing: House Marital status: Number of children: 2 Highest education level completed: High School Graduate service: No Current occupational status: employed 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
[2021-08-12] MEDS: oxymetazoline 0.05% Nasal Spray 15 mL 1 SPRAY NOSTRIL-L (11:25)
[2021-08-12] MEDS: silver nitrate applicator 1 EACH TOPICAL (11:44)
[2021-08-12] MEDS: neomycin-poly-bacitracin oint 28 gm 1 APPLIC TOPICAL (11:44)
--- NOTE | 2021-08-12 11:49 | PM.OP ---
Operative Report Date of procedure: August 12, 2021 Pre-op diagnosis: Preop Diagnosis Neoplasm of left nasal vestibule Post-op diagnosis: Same Post-op findings: Papillomatous irregular mass growing in left lateral inferior nasal vestibule skin. Measured approximately 3 x 3 x 3 mm. Procedure done: Excision of intranasal/vestibular skin neoplasm with repair. Length of incision approximately 1 cm. Implants: No implants. Specimens removed/disposition: Vestibule neoplasm from left side of nose Pathology: Same Surgeon: Maury Clavert MD Anesthesia: General and Local Estimated blood loss: 10 mL Complications: Complications encountered Findings: Irregular papillomata's appearing neoplasm in the left inferior lateral nasal vestibule measuring approximately 3 x 3 x 3 mm. Excised completely with deep extension removed. Brief History: 61-year-old male patient found to have a papillomatous lesion in the left nasal vestibule inferiorly and lateral. The patient had pulled and played with the area and it caused bleeding and pain. Eventually was seen by me who recommended that this be excised completely in the operating room. That is the reason that he is being brought to the operating room at this time. The procedure its risks and complications were explained in detail. Informed consent was granted. The risks discussed were bleeding infection numbness scarring swelling bruising and recurrence as well as anesthetic risks. Procedure: Description of procedure: The patient was placed on the operating table in the supine position. Adequate general endotracheal tube anesthesia was obtained. He was repositioned into a semirecumbent position. He was given Ancef IV for prophylaxis. A timeout was accomplished identifying the patient date of plan procedure allergies fire risk and medications given. With all in agreement the procedure continued. The patient's nose on the left side was packed with cottonoids soaked in 12-hour Afrin. Then the nasal hairs were trimmed with scissors. The packs were removed. The area surrounding the attachment of the neoplasm to the nasal vestibule skin and lateral nares area were infiltrated with local utilizing a total of 3.4 mL of 2% Xylocaine with 1-100,000 epinephrine. The Afrin packs were reapplied. The patient was then prepped and draped in usual fashion. After several minutes the lesion was excised with a 15 blade carrying it down through the skin and the subcutaneous tissue circumferentially. The lesion was then sent to pathology for permanent section only. Bleeding was controlled initially with pressure and Afrin soaked cottonoids. When that did not seem to control it after several minutes I used silver nitrate to cauterize. With the defect present it was necessary to close the defect and skin which was done with interrupted 4-0 chromic suture. 3 sutures were used. There was no further bleeding at this point. Neosporin ointment was applied. All previous cottonoids applied to the nose were removed. The nose was suctioned clean. There was no sign of any bleeding posteriorly down into the nasopharynx or oropharynx. The patient's drapes were removed. He was returned to anesthesia for wake-up and extubation. He tolerated the procedure well had an estimated blood loss of 10 mL and arrived in recovery in stable condition.
--- NOTE | 2021-08-12 12:09 | P.PCN_ITS ---
PACU note Narrative: VSS, Good respiratory effort, report to NIGHT GUARD Exam: awake
--- NOTE | 2021-08-12 12:09 | PM.PACU ---
PACU note Narrative: VSS, Good respiratory effort, report to PERFECT BIND MACHINE OPERATOR Exam: awake
[2021-08-12] MEDS: acetaminophen-codeine 300-30mg Tablet 1 TAB PO (12:52)
--- NOTE | 2021-08-13 11:58 | W.PM.OPSUD ---
Surgery/Procedure H&P Update DATE OF PROCEDURE: August 13, 2021 DATE H&P PERFORMED: 08/02/21 H&P UPDATE INFORMATION: I have reviewed H&P completed within last 30 days, I have examined patient prior to procedure and No changes to prior documentation PREOP DIAGNOSIS: Neoplasm of left nasal vestibule PRIMARY INDICATION FOR PROCEDURE: Neoplasm left nasal vestibule PLANNED PROCEDURE: Operation Date: 08/12/21 11:25 Proposed Procedures p Excision Nasal Mass/Lesion/36712/D49.1 neoplasm of nasal vestibule(Left) - Maury Calvert MD
== END 2021-08-12 13:00 | disposition home or self-care (01) ==
PROVIDERS: PCP Nurse Practitioner Family; Visit Provider Otolaryngology
PROC: 0HB1XZZ Excision of Face Skin, External Approach (ICD-10-PCS; CPT 30117; principal; 2021-08-12 11:25)
DX: D49.1 Neoplasm of unspecified behavior of respiratory system (principal); J45.909 Unspecified asthma, uncomplicated; Z85.038 Personal history of other malignant neoplasm of large intestine; Z82.49 Family history of ischemic heart disease and other diseases of the circulatory system
CPT/HCPCS: 30117; 88305; J0330; J0690; J1100; J2250; J2405; J2704; J3010; J3490; J7030

== ENCOUNTER → 2021-08-20 11:19 | Outpatient (BNVA) | payer MEDICAID, SELFPAY | PROVIDERS: PCP Nurse Practitioner Family; Visit Provider Otolaryngology | DX: Z48.89 Encounter for other specified surgical aftercare (principal); D49.1 Neoplasm of unspecified behavior of respiratory system | CPT/HCPCS: 99024 ==

== ENCOUNTER 2022-03-02 07:51 | Day surgery (SDC) | payer MEDICAID, SELFPAY ==
[2022-02-28 13:30] VITALS: BMI 27.8
[2022-03-02 08:18] VITALS: BP 160/97; PULSE 78; RESP 18; TEMP 36.7; O2SAT 97
[2022-03-02] MEDS: sodium chloride 0.9% 1,000 ML 30 ML IV (08:28)
--- NOTE | 2022-03-02 09:17 | ANES.PREANE2 ---
Pre-Anesthetic Assessment Height/Weight: Height 1.8 m Weight 90.718 kg Temp Pulse Resp BP Pulse Ox O2 Del Method 98.0 F 78 18 160/97 97 03/02/22 08:18 03/02/22 08:18 03/02/22 08:18 03/02/22 08:18 03/02/22 08:18 03/02/22 08:18 Preop Diagnosis: Neoplasm of left nasal vestibule Operation Date: 03/02/22 09:30 Proposed Procedures p Colonoscopy 33341,Z12.11(Not Applicable) - Aristeo Leal DO Was Beta Karen taken within 24 hours: N/A Was Clonidine taken within 24 hours: N/A Last intake: Intake Last Liquid Date 03/02/22 Last Liquid Time 06:30 Last Solid Date 02/28/22 Last Solid Time 17:00 Social No alcohol and No tobacco Exam alert, oriented x 3, clear to auscultation bilaterally and regular rate & rhythm Airway Submandibular: within normal limits Cervical ROM: within normal limits Mallampati: Class I History/ROS No significant history except as noted Pulmonary None reported CV/HEM None reported None reported Hepatic None reported GI None reported Metabolic None reported Musc/skel None reported Neuropsych None reported Anesthetic Plan ASA status: 2 Anesthesia: Anesthesia Evaluation and MAC Risk of > 500 ml blood loss (7ml/kg in children): Yes, adequate IV access and fluids planned Medications/Allergies Home Medications Medication Instructions Recorded Confirmed Last Taken Type No Known Home Medications 02/28/22 02/28/22 Unknown History Allergies Allergy/AdvReac Type Severity Reaction Status Date / Time No Known Allergies Allergy Verified 03/02/22 08:13 Current Medications Generic Name Dose Route Start Last Admin Trade Name Freq PRN Reason Stop Dose Admin Sodium Chloride 1,000 mls @ 30 mls/hr 03/02/22 08:15 03/02/22 08:28 Sodium Chloride 0.9% IV 03/03/22 08:14 30 mls/hr .Q24H MARJORIE Administration PFSH Anesthesia Medical History Asthma Colon cancer, ascending T1 N0 M0 Surgical History H/O esophagogastroduodenoscopy (11/23/20) History of nasal surgery S/P right hemicolectomy (12/02/20) Extended for ascending colon cancer Status post colonoscopy (11/23/20) Family History Brother Hypertension Social History Smoking and tobacco status: never smoked Second hand smoke exposure: No Smoking risk assessment/counseling performed?: Yes Alcohol intake: never Desire information about alcohol rehabilitation?: No Counseling given: No Desire information about substance/drug rehabilitation?: No Counseling given: No Adopted: No Caregiver/support person: No Lives independently: Yes Household members: spouse Housing: House Marital status: Number of children: 2 Highest education level completed: High School Graduate service: No Current occupational status: employed 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
--- NOTE | 2022-03-02 09:52 | P.HP_ITS ---
Providers/Chief Complaint Primary Care Provider: MARANDA Roberts Chief Complaint: Z12.11 History of Present Illness Vincent Casas Jr is a 61 year old male here for colonoscopy Medications/Allergies Home Medications Medication Instructions Recorded Confirmed Last Taken Type No Known Home Medications 02/28/22 02/28/22 Unknown History Allergies Allergy/AdvReac Type Severity Reaction Status Date / Time No Known Allergies Allergy Verified 03/02/22 08:13 PFSH Acute PFSH: Medical History Asthma Colon cancer, ascending T1 N0 M0 Surgical History H/O esophagogastroduodenoscopy (11/23/20) History of nasal surgery S/P right hemicolectomy (12/02/20) Extended for ascending colon cancer Status post colonoscopy (11/23/20) Family History Brother Hypertension Social History Smoking and tobacco status: never smoked Second hand smoke exposure: No Smoking risk assessment/counseling performed?: Yes Alcohol intake: never Desire information about alcohol rehabilitation?: No Counseling given: No Desire information about substance/drug rehabilitation?: No Counseling given: No Adopted: No Caregiver/support person: No Lives independently: Yes Household members: spouse Housing: House Marital status: Number of children: 2 Highest education level completed: High School Graduate service: No Current occupational status: employed 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
[2022-03-02 10:26] VITALS: BP 125/72; PULSE 73; RESP 16; TEMP 36.1; O2SAT 92
[2022-03-02 10:46] VITALS: BP 142/97; PULSE 67; RESP 18; O2SAT 94
--- NOTE | 2022-03-02 14:25 | ANE.PACU2 ---
Inpatient post-anesthesia follow up: Airway intact: Yes Vital signs: Temperature 97.0 F Pulse Rate 67 Respiratory Rate 18 Blood Pressure 142/97 Pulse Oximetry 94 Oxygen Delivery Me thod Room Air Oxygen Flow Rate Fraction of Inspir ed Oxygen Hydration adequate: Yes Nausea and vomiting: No Pain level: 1 Mental status: Baseline
== END 2022-03-02 10:56 | disposition home or self-care (01) ==
PROVIDERS: PCP Nurse Practitioner Family; Visit Provider Surgery
PROC: 0DJD8ZZ Inspection of Lower Intestinal Tract, Via Natural or Artificial Opening Endoscopic (ICD-10-PCS; CPT 45378; principal; 2022-03-02 09:30)
DX: Z12.11 Encounter for screening for malignant neoplasm of colon (principal); K63.5 Polyp of colon; J45.909 Unspecified asthma, uncomplicated
CPT/HCPCS: 45385; 88305; J2704; J7030

== ENCOUNTER → 2023-03-10 10:35 | Outpatient (BNVA) | payer MEDICAID, SELFPAY | PROVIDERS: PCP Nurse Practitioner Family; Visit Provider Nurse Practitioner Family | DX: K62.5 Hemorrhage of anus and rectum (principal); R10.9 Unspecified abdominal pain | CPT/HCPCS: 80053; 85025 ==

== ENCOUNTER → 2023-03-13 10:12 | Outpatient (BNVA) | payer MEDICAID, SELFPAY | PROVIDERS: PCP Nurse Practitioner Family; Visit Provider Nurse Practitioner Family | DX: K62.5 Hemorrhage of anus and rectum (principal); R10.9 Unspecified abdominal pain; Z85.038 Personal history of other malignant neoplasm of large intestine | CPT/HCPCS: 82274 ==

== ENCOUNTER 2023-04-27 08:05 | Outpatient (CLI) | payer MEDICAID, SELFPAY ==
--- NOTE | 2023-04-27 09:00 | CT_ITS ---
WS: [id number] CT ABDOMEN AND PELVIS WITH CONTRAST HISTORY: R10.13 - Epigastric pain, history of colon cancer. Rectal bleeding. TECHNIQUE: Imaging performed of the abdomen and pelvis with IV contrast. Single phase imaging of the abdomen. Coronal and sagittal reformats are submitted. All CT scans at [facility] use at [address] one of these dose optimization techniques: automated exposure control; mA and/or kV adjustment per patient size (includes targeted exams where dose is matched to clinical indication); or iterative re construction. IV CONTRAST: Omnipaque 350; 100 mL IV. Oral contrast: Yes. DLP: 491.03 mGy.cm COMPARISON: 11/23/2020 Lower thorax: Breathing motion artifact at the lung bases. Heart is normal size. No hiatal hernia. Liver/biliary system: Liver is normal size. There are several new low-attenuation masses within the l iver highly suspicious for metastatic disease. The largest measures 2.0 x 1.5 cm in the RIGHT lobe. T here are additional scattered smaller hypodensities in the RIGHT and LEFT lobes suspicious for metast atic disease. Focal fatty sparing along the falciform ligament. Negative portal vein. No bile duct di latation. Gallbladder: Normal. No gallstones or wall thickening. No pericholecystic fluid. Pancreas: New abnormality involving the uncinate process and head of the pancreas with extension into the duodenum. There is a soft tissue mass with foci of air extending from the uncinate process into the duodenum and adjacent colonic anastomotic site. This mass measures 3.0 x 4.0 cm and extends over a length of 4.0 cm. The common bile duct is not dilated and is just lateral of the pancreatic mass. P ancreatic duct is not dilated. Spleen: Normal size spleen. No mass or infarct. Adrenal glands: Normal. Right kidney: Normal. Left kidney: Normal. Aorta: Mild atherosclerosis. Lymphadenopathy: There are a few new mesenteric lymph nodes closely associated with the pancreatic he ad measuring up to 7 mm. Free fluid: None. GI tract: Normal stomach. Soft tissue tumor extending from the pancreatic uncinate process into the d uodenum with narrowing of the lumen. Asymmetric wall thickening measuring up to 1.2 cm of the duodena l C-loop. Distal to the mass the small bowel is normal caliber. Mild colonic constipation. There is a surgical anastomotic site in the RIGHT upper quadrant which is very closely associated with the mass associated with the uncinate process and the small bowel. There is a continuation between the anasto motic suture site related to colon neoplasm in the small bowel and pancreatic mass. Abdominal wall: Unremarkable abdominal wall. No hernia. Pelvis: No free fluid or adenopathy within the pelvis. Prostate enlargement. Bones: Unremarkable. IMPRESSION: 1. There is a soft tissue mass highly suspicious for neoplasm centered in the RIGHT upper quadrant. This mass extends from the anastomotic site secondary to a prior colon neoplasm into the duodenal C-l oop and pancreatic head. Mass measures at least 3.0 x 4.0 x 4.0 cm. Due to the position this may be r ecurrent colonic cancer with extension into the adjacent organs. Favor recurrent colon neoplasm with metastasis. Additional etiologies to consider are lymphoma and pancreatic neoplasm. 2. New masses within the liver suspicious for metastatic disease. 3. Small but new mesenteric lymph nodes near the soft tissue mass in the RIGHT upper quadrant
[2023-04-27] MEDS: iohexol 350 mg/mL 500 mL Btl (per mL) PO (09:41)
[2023-04-27] MEDS: iohexol 350 mg/mL 500 mL Btl (per mL) IV (09:42)
== END 2023-04-27 08:06 | disposition home or self-care (01) ==
LOC: RAD 08:05
PROVIDERS: PCP Nurse Practitioner Family; Visit Provider Nurse Practitioner Family
DX: R19.01 Right upper quadrant abdominal swelling, mass and lump (principal); K86.9 Disease of pancreas, unspecified; R16.0 Hepatomegaly, not elsewhere classified; Z85.038 Personal history of other malignant neoplasm of large intestine; K21.9 Gastro-esophageal reflux disease without esophagitis; K27.9 Peptic ulcer, site unspecified, unspecified as acute or chronic, without hemorrhage or perforation; K62.5 Hemorrhage of anus and rectum; Z90.49 Acquired absence of other specified parts of digestive tract
CPT/HCPCS: 74177; Q9967

== ENCOUNTER 2023-05-03 08:01 | Day surgery (SDC) | payer MEDICAID, SELFPAY ==
[2023-05-03 08:13] VITALS: BMI 27.1
--- NOTE | 2023-05-03 08:15 | ANES.PREANE2 ---
Pre-Anesthetic Assessment Height/Weight: Height 1.8 m Weight 88.451 kg Operation Date: 05/03/23 09:15 Proposed Procedures p 86202 egd : K21.9,R10.13 colonoscopy 75828 K63.9(Not Applicable) - Aristeo Leal DO s Colonoscopy(Not Applicable) - Aristeo Leal DO Last intake: Intake Last Liquid Date 05/02/23 Last Liquid Time 20:00 Last Solid Date 05/01/23 Last Solid Time 18:00 Social Tobacco Exam alert, oriented x 3, clear to auscultation bilaterally and regular rate & rhythm Airway Submandibular: within normal limits Cervical ROM: within normal limits Mallampati: Class II Dentition: chipped and other (poor dentition) History/ROS No significant history except as noted and No significant complaints Pulmonary None reported CV/HEM None reported None reported Hepatic None reported GI None reported Metabolic None reported Musc/skel None reported Neuropsych Anxiety Anesthetic Plan ASA status: 2 Anesthesia: Anesthesia Evaluation and MAC Risk of > 500 ml blood loss (7ml/kg in children): No Medications/Allergies Home Medications Medication Instructions Recorded Confirmed Last Taken Type pantoprazole 40 mg tablet,delayed 40 mg PO BID 6 weeks #84 tabs 03/21/23 05/03/23 05/01/23 Rx release (Protonix) naproxen sodium 220 mg tablet 220 mg PO BID 05/01/23 05/03/23 05/01/23 History (Aleve) Allergies Allergy/AdvReac Type Severity Reaction Status Date / Time No Known Allergies Allergy Verified 04/25/23 11:05 [facility] Anesthesia Medical History Colon cancer, ascending T1 N0 M0 Asthma Surgical History History of nasal surgery S/P right hemicolectomy (12/02/20) Extended for ascending colon cancer Status post colonoscopy (11/23/20) H/O esophagogastroduodenoscopy (11/23/20) Family History Brother Hypertension Social History Smoking and tobacco/nicotine status: never used tobacco/nicotine Second hand smoke exposure: No Alcohol intake: never Substance/Drug Use: never Adopted: No Caregiver/support person: No Lives independently: Yes Household members: spouse Housing: House Marital status: Number of children: 2 Highest education level completed: High School Graduate service: No Current occupational status: employed 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
[2023-05-03 08:16] VITALS: BP 163/92; PULSE 71; RESP 16; TEMP 36.6; O2SAT 96
--- NOTE | 2023-05-03 08:18 | W.PM.OPSUD ---
Surgery/Procedure H&P Update DATE OF PROCEDURE: May 03, 2023 DATE H&P PERFORMED: 04/25/23 H&P UPDATE INFORMATION: I have reviewed H&P completed within last 30 days, I have examined patient prior to procedure and Changes to prior documentation as noted here CHANGES TO PREVIOUS DOCUMENTATION: Patient had a CT of the abdomen pelvis after I saw and examined him in office. CT shows a right upper quadrant mass extending from a colonic anastomosis to the duodenum. Colonoscopy was added to the procedure. Colonoscopy The risks and benefits of the procedure, including bleeding, infection, intestinal perforation requiring surgery, missed lesion were explained to the patient. The patient is understanding of the risks and wishes to proceed. PLANNED PROCEDURE: Operation Date: 05/03/23 09:15 Proposed Procedures p 87320 egd : K21.9,R10.13 colonoscopy 68040 K63.9(Not Applicable) - DO asad Cruz Colonoscopy(Not Applicable) - Aristeo Leal DO
[2023-05-03] MEDS: sodium chloride 0.9% 1,000 ML 30 ML IV (08:21)
[2023-05-03 08:55] VITALS: BP 99/68; PULSE 79; RESP 16; TEMP 36.1; O2SAT 92
[2023-05-03 09:05] VITALS: BP 103/63; PULSE 89; RESP 16; O2SAT 96
--- NOTE | 2023-05-03 14:12 | ANE.PACU2 ---
Inpatient post-anesthesia follow up: Airway intact: Yes Vital signs: Temperature 97.0 F Pulse Rate 89 Respiratory Rate 16 Blood Pressure 103/63 Pulse Oximetry 96 Oxygen Delivery Me thod Room Air Oxygen Flow Rate Fraction of Inspir ed Oxygen Hydration adequate: Yes Nausea and vomiting: No Pain level: 2 Mental status: Baseline
== END 2023-05-03 09:35 | disposition home or self-care (01) ==
PROVIDERS: PCP Nurse Practitioner Family; Visit Provider Surgery
PROC: 0DJ08ZZ Inspection of Upper Intestinal Tract, Via Natural or Artificial Opening Endoscopic (ICD-10-PCS; CPT 43235; principal; 2023-05-03 09:15)
PROC: 0DJD8ZZ Inspection of Lower Intestinal Tract, Via Natural or Artificial Opening Endoscopic (ICD-10-PCS; CPT 45378; 2023-05-03 09:15)
DX: C17.0 Malignant neoplasm of duodenum (principal); K63.89 Other specified diseases of intestine; R10.13 Epigastric pain; K21.9 Gastro-esophageal reflux disease without esophagitis; K64.8 Other hemorrhoids; K44.9 Diaphragmatic hernia without obstruction or gangrene; Z90.49 Acquired absence of other specified parts of digestive tract
CPT/HCPCS: 43239; 45378; 88305; J2704; J7030

== ENCOUNTER 2023-05-05 05:56 | Outpatient (CLI) | payer MEDICAID, SELFPAY ==
--- NOTE | 2023-05-05 06:15 | US_ITS ---
WS: [id number] RIGHT UPPER QUADRANT ULTRASOUND HISTORY: costochondritis COMPARISON: CT 04/27/2023 Liver: 15.3 cm in length. Liver is normal size. Previously described abnormalities by CT are not iden tified by ultrasound. No bile duct dilatation. Portal Vein: Normal hepatopetal flow with monophasic waveform. Gallbladder: Mild cholelithiasis. Small amount of sludge within the gallbladder. Gallbladder wall is normal. No pericholecystic fluid. CBD: 0.3 cm Pancreas: Poorly visualized. Body the pancreas is normal. Head and tail are not visualized due to bow el gas and body habitus. Right kidney: 12.3 cm in length. Normal size and echogenicity. No hydronephrosis or mass. Aorta and IVC: Poorly visualized. No ascites. IMPRESSION: 1. Cholelithiasis and a small amount of gallbladder sludge. No evidence for acute cholecystitis. 2. Normal liver. Previously described liver abnormalities by CT are not identified by ultrasound. 3. Partially visualized pancreas. Head and tail are not visualized.
== END 2023-05-05 05:57 | disposition home or self-care (01) ==
LOC: RAD 05:56
PROVIDERS: PCP Nurse Practitioner Family; Visit Provider Surgery
DX: K21.9 Gastro-esophageal reflux disease without esophagitis (principal); R10.13 Epigastric pain; M94.0 Chondrocostal junction syndrome [Tietze]; K80.20 Calculus of gallbladder without cholecystitis without obstruction
CPT/HCPCS: 76705

== ENCOUNTER 2023-05-16 08:12 | Oncology outpatient (recurring) (ONCR) | payer MEDICAID, SELFPAY ==
[2023-05-16 10:11] LABS: Carcinoembryonic Antigen 4.7 ng/mL (0.0-4.7)
[2023-05-16 10:15] LABS: Alanine Aminotransferase 32 U/L (0-41); Albumin Level 4.3 g/dL (3.5-5.2); Alkaline Phosphatase 75 U/L (40-130); Anion Gap 13.1 (5-19); Aspartate Amino Transferase 22 U/L (0-40); Blood Urea Nitrogen 20 mg/dL (8-23); Calcium 9.4 mg/dL (8.5-10.5); Cancer Antigen 19 9 10.05 U/mL (0-35); Carbon Dioxide 24 mmol/L (22-29); Chloride 104 mmol/L (98-107); Creatinine Clr Calc Pharmacy 96.9709; Globulin 2.8 g/dL (1.3-4.6); Glomerular Filtration Rate 85.5 mL/min (90-130); Glucose 101 mg/dL (65-115); Osmolality Calculated 287 mOsm/kg (285-295); Potassium 4.1 mmol/L (3.5-5.1); Sodium 137 mmol/L (136-145); Total Bilirubin 0.4 mg/dL (0.15-1.2); Total Protein 7.1 g/dL (6.6-8.7)
== END 2023-06-08 23:59 | disposition home or self-care (01) ==
PROVIDERS: Internal Medicine; PCP Nurse Practitioner Family; Visit Provider Nurse Practitioner Family
DX: C17.0 Malignant neoplasm of duodenum (principal); C18.2 Malignant neoplasm of ascending colon; K86.89 Other specified diseases of pancreas
CPT/HCPCS: 36415; 80053; 82378; 85025; 86301

== ENCOUNTER → 2023-05-17 08:43 | Outpatient (BNVA) | payer MEDICAID, SELFPAY | PROVIDERS: PCP Nurse Practitioner Family; Visit Provider Internal Medicine | DX: K86.89 Other specified diseases of pancreas (principal); C17.0 Malignant neoplasm of duodenum; C18.2 Malignant neoplasm of ascending colon | CPT/HCPCS: 85025 ==

== ENCOUNTER 2023-06-07 07:00 | Outpatient (CLI) | payer MEDICAID, SELFPAY ==
--- NOTE | 2023-06-07 07:15 | MR_ITS ---
WS: [id number] MRI ABDOMEN WITH AND WITHOUT CONTRAST. COMPARISON: Gallbladder ultrasound 05/05/2023, CT abdomen pelvis 04/27/2023. Multiplanar, multisequence imaging is performed with and without contrast. Dynamic imaging post IV co ntrast MultiHance 20 mL IV. History: History of colon cancer. Recent biopsy duodenal mass revealed adenocarcinoma. Evaluate liver lesions that were seen on a prior CT of 04/27/2023. Liver is normal size. No bile duct dilatation. There are several lesions within the liver for which s ome of these correspond to the findings on the prior CT. The largest lesion is in the very high RIGHT lobe of the liver measuring 1.3 cm. There is peripheral enhancement. There is an additional smaller lesion in the RIGHT lobe of liver superiorly of similar enhancement. There are additional but smaller very tiny areas of low signal which may have a peripheral enhancement. These lesions are very diffic ult to characterize. The larger lesions in the RIGHT lobe of the liver are highly suspicious for meta static disease. Due to their size and position these were not visible on the prior and recent ultraso und. The portal vein is normal. The gallbladder is normal. Spleen is normal. Reidentified is the mass in t he duodenum that has been previously biopsied. Mass measures 4.3 x 3.5 cm and there is no obstruction . The lumen is narrowed. This mass does extend to about the pancreatic head. A small portion of this mass abuts the RIGHT colon close to the anastomotic site. Anastomotic site from prior colon cancer wi th resection. No adrenal mass. No adenopathy or ascites. Kidneys are negative. Normal aorta. IMPRESSION: 1. There are several very small and difficult to characterize lesions within the liver. The largest is 1.3 cm in the very high RIGHT lobe of the liver with peripheral enhancement. Highly suspicious for metastatic disease. There are a few other lesions are smaller that are also suspicious for metastati c disease. These would be difficult to biopsy due to their small size. These were not evident by ultr asound on 05/05/2023. 2. Reidentified is the mass in the duodenal C-loop measuring 4.3 x 3.5 cm which has been biopsied an d noted be an adenocarcinoma.
[2023-06-07] MEDS: gadobenate dimeglumine 20 mL vial IV (07:57)
--- NOTE | 2023-06-07 08:30 | CT_ITS ---
WS: [id number] CT chest w con* [id number] HISTORY: staging TECHNIQUE: Axial imaging performed through the thorax. Coronal and sagittal reformats are submitted. All CT scans at [facility] use at least one of these dose optimization techniques: automated exposure control; mA and/or kV adjustment per patient size (includes targeted exams where dose is mat ched to clinical indication); or iterative reconstruction. CONTRAST: Omnipaque 350; 100 mL IV. DLP: 456.19 mGy.cm COMPARISON: 11/23/2020 Lungs and central airway: No pulmonary mass or nodule. No pneumonia. RIGHT fissural nodule is 5 mm. U nchanged since 11/23/2020. Pleura: Normal. No pleural effusion. Heart and pericardium: Normal size heart with no pericardial effusion. Mediastinum and damian: No mediastinum or hilar adenopathy. Vessels: Minimal atherosclerosis aorta. Normal sized pulmonary artery. Chest wall and lower neck: Very tiny, subcentimeter LEFT thyroid nodule. No axillary lymph nodes. Upper abdomen: Normal size liver. Reidentified are some very faint areas of decreased density within the liver. The largest is 10 mm in the RIGHT lobe towards the diaphragm. This corresponds to the rece ntly described liver lesion by MRI. Suspicious for metastatic disease by MRI. Only early arterial pha se imaging performed the liver today. There is an additional area in the caudate lobe and a few addit ional smaller scattered areas which may be additional metastatic sites but these are very small. No a drenal mass. Normal gallbladder. Negative spleen. Pancreas is normal size. Reidentified is the previo usly described mass centered in the duodenal C-loop extending to the pancreas. This is incompletely i ncluded on today's examination of the chest but the area measures approximately 2.8 x 3.8 cm. Osseous structures: No destructive process. IMPRESSION: 1. No metastatic disease to the lungs. No pneumonia. 2. No mediastinal or hilar adenopathy. 3. Reidentified are very small lesions within the liver. The largest is 10 mm in the RIGHT lobe. Als o described by recent MRI and suspicious for metastasis. There are other additional similar areas whi ch are smaller suspicious for metastatic disease also. PET/CT may be of benefit. 4. Reidentified is the partially included mass in the duodenal C-loop which has been previously desc ribed and biopsied.
[2023-06-07] MEDS: iohexol 350 mg/mL 500 mL Btl (per mL) IV (08:57)
== END 2023-06-07 07:01 | disposition home or self-care (01) ==
LOC: RAD 07:00
PROVIDERS: PCP Nurse Practitioner Family; Visit Provider Internal Medicine
DX: K86.89 Other specified diseases of pancreas (principal); C18.2 Malignant neoplasm of ascending colon; C17.0 Malignant neoplasm of duodenum
CPT/HCPCS: 71260; 74183; 85025; A9577; Q9967

== ENCOUNTER → 2023-06-21 14:04 | Outpatient (BNVA) | payer MEDICAID, SELFPAY | PROVIDERS: PCP Nurse Practitioner Family; Visit Provider Nurse Practitioner Family | DX: Z98.890 Other specified postprocedural states (principal) | CPT/HCPCS: 85025 ==

== ENCOUNTER 2023-07-03 07:45 | Oncology outpatient (recurring) (ONCR) | payer MEDICAID, SELFPAY ==
[2023-07-03 09:03] LABS: Basophils % 0.2 %; Eosinophils # 0.1 10^3/uL (0.0-0.8); Eosinophils % 0.6 %; Hematocrit 30.8 % (37-53); Lymphocytes % 7.7 %; Mean Corpuscular HGB Conc 35.1 g/dL (30-55); Mean Corpuscular Hemoglobin 26.2 pg (27-33); Mean Corpuscular Volume 74.8 fl (82-101); Mean Platelet Volume 9.1 fL (7.4-10.4); Monocytes # 0.7 10^3/uL (0.2-0.9); Monocytes % 5.9 %; Neutrophils # 10.47 10^3/uL (1.8-7.7); Neutrophils % 85.4 %; Nucleated Red Blood Cells % 0 %; Platelet Count 497 10^3/cmm (157-399); Red Blood Count 4.12 10^6/uL (3.85-5.65); Red Cell Distribution Width 18.3 % (12.1-15.1); White Blood Count 12.26 10^3/uL (3.29-11.43)
[2023-07-03 09:30] LABS: Carcinoembryonic Antigen 10.8 ng/mL (0.0-4.7)
[2023-07-03 09:42] LABS: Alanine Aminotransferase 530 U/L (0-41); Albumin Level 3.3 g/dL (3.5-5.2); Anion Gap 15.7 (5-19); Aspartate Amino Transferase 242 U/L (0-40); Blood Urea Nitrogen 17 mg/dL (8-23); Calcium 9.1 mg/dL (8.5-10.5); Carbon Dioxide 20 mmol/L (22-29); Chloride 101 mmol/L (98-107); Globulin 2.9 g/dL (1.3-4.6); Glomerular Filtration Rate 303.8 mL/min (90-130); Glucose 118 mg/dL (65-115); Osmolality Calculated 279 mOsm/kg (285-295); Potassium 3.7 mmol/L (3.5-5.1); Sodium 133 mmol/L (136-145); Total Protein 6.2 g/dL (6.6-8.7)
[2023-07-03 09:44] LABS: Alkaline Phosphatase 1018 U/L (40-130); Total Bilirubin 19.3 mg/dL (0.15-1.2)
== END 2023-07-09 23:59 | disposition home or self-care (01) ==
PROVIDERS: Internal Medicine; PCP Nurse Practitioner Family; Visit Provider Nurse Practitioner Family
DX: C18.9 Malignant neoplasm of colon, unspecified (principal); C78.7 Secondary malignant neoplasm of liver and intrahepatic bile duct; K86.89 Other specified diseases of pancreas
CPT/HCPCS: 36415; 80053; 82248; 82378; 85025

== ENCOUNTER 2023-07-07 08:56 | Outpatient (CLI) | payer MEDICAID, SELFPAY ==
--- NOTE | 2023-07-07 08:57 | CT_ITS ---
WS: [email or web address] Exam: CT chest abdpel w/*[id number] Date/Time of Exam: 07/07/2023 8:58 AM Reason For Exam: colon and liver cancer DLP: 893.[address] scans at [facility] use at least one of these dose optimization techniques: automated e xposure control; mA and/or kV adjustment per patient size (includes targeted exams where dose is matc hed to clinical indication); or iterative reconstruction. CT scan of the chest with IV contrast. Comparison 07/07/2023. The lungs are clear and fully inflated. The airway is patent. No hilar or mediastinal lymphadenopathy . The thoracic aorta is normal in caliber. Unremarkable main pulmonary arteries. No pleural or perica rdial effusion. Regional bony structures are intact. No chest wall abnormalities. A 4 mm low-attenuat ion nodule noted in the LEFT thyroid lobe may represent a colloid cyst. It is stable. Minimal streaky atelectasis in the posterior lung bases. IMPRESSION: 1. No mass, lymphadenopathy or acute finding in the chest. 2. Minor findings as discussed above. CT scan of the abdomen and pelvis with IV and oral contrast. Interval development of marked intra and extrahepatic bile duct dilatation as well as hydropic gallbl adder. Mild dilatation of the pancreatic duct. Enlarging mass noted in the region of the pancreatic h ead which encases the duodenum. The mass measures 5.8 cm in transverse width and approximately 3.1 cm in anterior posterior dimension. The mass obstructs the distal common bile duct. The stomach, spleen and kidneys are unremarkable. Normal adrenal glands. The abdominal aorta is normal in caliber. Small bowel loops are nondilated. There are several low-attenuation nodules in the liver suspicious for he patic metastasis. The portal vein is patent. The IVC is patent. Colonic anastomotic site noted in the upper RIGHT abdomen. Moderate amount of retained stool in the colon. Several subcentimeter short ax is lymph nodes noted. No other sign of significant lymphadenopathy. No mass or adenopathy in the pelv is. Intact urinary bladder. Large amount of stool in the rectum. Normal prostate gland. Normal semina l vesicles. Bony structures are intact. IMPRESSION: 1. Obstruction of the distal common bile duct with marked dilatation of the intra and extrahepatic bi le ducts as well as the gallbladder. Obstruction appears to be secondary to an enlarging mass in the region of the pancreatic head. The mass encases a segment of the duodenal C-loop. Mild dilatation of the main pancreatic duct. 2. Several scattered low-attenuation nodules in the liver suspicious for hepatic metastasis. 3. Status post RIGHT hemicolectomy with intact colonic anastomosis. Constipation.
[2023-07-07] MEDS: iohexol 350 mg/mL 500 mL Btl (per mL) IV (10:10)
[2023-07-07] MEDS: iohexol 350 mg/mL 500 mL Btl (per mL) PO (10:10)
== END 2023-07-07 08:57 | disposition home or self-care (01) ==
PROVIDERS: PCP Nurse Practitioner Family; Visit Provider Internal Medicine
DX: C78.7 Secondary malignant neoplasm of liver and intrahepatic bile duct
CPT/HCPCS: 71260; 74177; Q9967

== ENCOUNTER 2023-07-10 09:58 | Day surgery (SDC) | payer MEDICAID, SELFPAY ==
--- NOTE | 2023-07-10 10:03 | XRR_ITS ---
PROCEDURE INFORMATION: Exam: XR Chest Exam date and time: 07/10/2023 11:56 AM Age: 63 years old Clinical indication: Device placement; Other: Mediport placement; Prior surgery; Surgery date: Post-operative (0-2 days); Additional info: Postop mediport placement TECHNIQUE: Imaging protocol: Radiologic exam of the chest. Views: 1 view. COMPARISON: CT chest abdpel w/*[id number] 07/07/2023 10:00 AM FINDINGS: Tubes, catheters and devices: There is a left-sided MediPort whose tip terminates within the right atrium approximately 2-3 cm below the cavoatrial junction. Lungs: Lung volumes are decreased with minor atelectatic changes at the lung bases. Pleural spaces: Unremarkable. No pleural effusion. No pneumothorax. Heart/Mediastinum: Heart is mildly enlarged, unchanged. Bones/joints: Unremarkable for age. XR/XR chest 1V portable [id number] IMPRESSION: Interval placement of left-sided chest port whose tip terminates within the right atrium.
--- NOTE | 2023-07-10 10:03 | SC_ITS ---
WS: [email or web address] EXAMINATION: C-arm FL for CVA [id number] ORDER DATE: 07/10/2023 10:03 AM REASON FOR EXAM: Mediport placement COMPARISON: None available. FLUOROSCOPY TIME: 9.6 seconds # OF SPOT FILMS: 2 FINDINGS: Intraoperative images demonstrate placement of a Port-A-Cath via the left subclavian vein. The tip li es in good position IMPRESSION: Well-positioned left-sided Port-A-Cath.
[2023-07-10 10:26] VITALS: BP 109/74; PULSE 86; RESP 18; TEMP 36.2; O2SAT 96; BMI 24.4
[2023-07-10] MEDS: sodium chloride 0.9% 1,000 ML 30 ML IV (10:36)
--- NOTE | 2023-07-10 10:47 | ANES.PREANE2 ---
Pre-Anesthetic Assessment Height/Weight: Height 1.8 m Weight 79.379 kg Temp Pulse Resp BP Pulse Ox O2 Del Method 97.2 F L 86 18 109/74 96 Room Air 07/10/23 10:07/10/23 10:07/10/23 10:07/10/23 10:07/10/23 10:07/10/23 10: Operation Date: 07/10/23 12:00 Proposed Procedures p Portacath Placement(Not Applicable) - Aristeo Leal DO Familial anesthetic complications: None Was Beta Karen taken within 24 hours: N/A Was Clonidine taken within 24 hours: N/A Last intake: Intake Last Liquid Date 07/09/23 Last Liquid Time 23:30 Last Solid Date 07/09/23 Last Solid Time 20:00 Social No alcohol and No tobacco Exam alert, oriented x 3, clear to auscultation bilaterally and regular rate & rhythm Airway Mallampati: Class I Dentition: chipped Pulmonary hx asthma, but no episodes recently GI Gastroesophageal Reflux Disease Metabolic pancreatic cancer w/ mets, jaundiced Anesthetic Plan ASA status: 4 Anesthesia: MAC Risk of > 500 ml blood loss (7ml/kg in children): No Medications/Allergies Home Medications Medication Instructions Recorded Confirmed Last Taken Type amoxicillin 875 mg-potassium 1 tab PO BID #20 tabs 06/21/23 07/07/23 07/09/23 Rx clavulanate 125 mg tablet ondansetron HCl 8 mg tablet 8 mg PO Q8H PRN nausea and 06/21/23 07/10/23 07/08/23 Rx vomiting #60 tabs pantoprazole 40 mg tablet,delayed 40 mg PO BID #90 tabs 06/21/23 07/07/23 07/07/23 Rx release (Protonix) sucralfate 1 gram tablet (Carafate) 1 g PO TID #90 tabs 06/21/23 07/10/23 Unknown Rx hydrocodone 10 mg-acetaminophen 1 tab PO Q4H PRN pain 7 days #42 07/03/23 07/07/23 07/09/23 Rx 325 mg tablet tabs hydroxyzine HCl 25 mg tablet 25 mg PO QID PRN itching #30 tabs 07/03/23 07/07/23 07/10/23 Rx prochlorperazine maleate 10 mg 10 mg PO Q4H PRN Mild Nausea #30 07/03/23 07/10/23 Unknown Rx tablet (Compazine) tabs tramadol 50 mg tablet 50 mg PO .QHS #30 tabs 07/04/23 07/07/23 07/10/23 Rx Allergies Allergy/AdvReac Type Severity Reaction Status Date / Time No Known Allergies Allergy Verified 07/03/23 15:13 Current Medications Generic Name Dose Route Start Last Admin Trade Name Freq PRN Reason Stop Dose Admin Sodium Chloride 1,000 mls @ 30 mls/hr 07/10/23 10:15 07/10/23 10:36 Sodium Chloride 0.9% IV 07/11/23 10:14 30 mls/hr .Q24H MARJORIE Administration PFSH Anesthesia Medical History Adenocarcinoma of colon metastatic to liver Metastatic adenocarcinoma to colorectal region Pancreatic mass Adenocarcinoma of duodenum Colon cancer, ascending T1 N0 M0 Asthma Surgical History History of nasal surgery S/P right hemicolectomy (12/02/20) Extended for ascending colon cancer Status post colonoscopy (11/23/20) H/O esophagogastroduodenoscopy (11/23/20) Family History Brother Hypertension Social History Smoking and tobacco/nicotine status: never used tobacco/nicotine Second hand smoke exposure: No Alcohol intake: never Substance/Drug Use: never Adopted: No Caregiver/support person: No Lives independently: Yes Household members: spouse Housing: House Marital status: Number of children: 2 Highest education level completed: High School Graduate service: No Current occupational status: employed 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
--- NOTE | 2023-07-10 11:33 | W.PM.OPSUD ---
Surgery/Procedure H&P Update DATE OF PROCEDURE: July 10, 2023 DATE H&P PERFORMED: 07/03/23 H&P UPDATE INFORMATION: I have reviewed H&P completed within last 30 days, I have examined patient prior to procedure and No changes to prior documentation PLANNED PROCEDURE: Operation Date: 07/10/23 12:00 Proposed Procedures p Portacath Placement(Not Applicable) - Aristeo Leal DO
[2023-07-10] MEDS: ceFAZolin 2,000 MG in sodium chloride 0.9% (plus) 50 ML 100 MG IV (12:02)
[2023-07-10] MEDS: lidocaine-epi 2% PF 1:200,000 20 mL SDV XX (12:11)
[2023-07-10] MEDS: heparin, porcine 1,000 unit/mL INJ 10 mL 10000 UNIT INJECTION (12:35)
--- NOTE | 2023-07-10 12:44 | PM.OP ---
Operative Report Date of procedure: July 10, 2023 Pre-op diagnosis: Duodenal carcinoma Post-op diagnosis: same Procedure done: Mediport placement Intraoperative interpretation of fluoroscopy Implants: PowerPort Specimens removed/disposition: None Surgeon: Aristeo Leal DO Anesthesia: MAC and Local Estimated blood loss (mL): 5 Complications: None apparent Brief History: Is a very pleasant 63-year-old gentleman who was diagnosed with carcinoma around his duodenum and pancreatic head. Oncology requested Mediport placement for chemotherapy access. The risk and benefits were explained and documented. Procedure: They put another order I will do right now things the patient was taken to the operating room and placed supine on the operating room table. All bony prominences were padded. She was given IV sedation and monitored throughout the case by the anesthesia personnel. SCDs were placed and turned on. The arms were tucked to the side. Patient received Ancef 2 g preoperatively IV. The bilateral chest wall was prepped and draped in usual sterile fashion using chlorhexidine base prep. Sterile drapes were applied. We did procedure pause prior to beginning. An 18 gauge needle was placed in the left subclavian vein. Dark, nonpulsatile blood was aspirated. A guidewire was placed through the needle centrally toward the atrial/vena caval junction. Fluoroscopy visualized good placement. The needle was removed and the guidewire was clipped to the drape with a hemostat. Further local anesthetic was infiltrated in the soft tissues of the left chest wall and a #15 blade was used to make a horizontal skin incision. A subcutaneous Mediport pocket was created using Bovie cautery, dissecting down through the skin and subcutaneous tissues. Meticulous hemostasis was achieved. The Mediport was sutured in position using 3-0 vicryl suture x2 stitches. A #15 blade was used to make a small skin phoebe around the guidewire insertion area. The Mediport tubing was tunneled through the subcutaneous tissues up to the needle insertion location. A dilator with a peel-away sheath was placed over the guidewire and placed centrally. After measuring the Mediport tubing was cut to length so that the tip would end at the atrial/vena caval junction. The inner cannula and the guidewire were removed, leaving the dilator sheath in place. The Mediport was flushed. The tip of the catheter was inserted through the peel-away sheath and the peel-away sheath removed in the standard fashion. The Mediport was accessed with a straight Martinez needle and dark, nonpulsatile blood was aspirated and flushed using heparinized saline to hep-lock the Mediport. Final fluoroscopy visualization showed no kink in the catheter and the tip of the Mediport tubing near the atrial/vena caval junction. No significant pneumothorax was seen on imaging. Both skin incisions were thoroughly irrigated and suctioned dry. Meticulous hemostasis noted. The dermis was approximated with 3-0 Vicryl in an interrupted fashion. Skin was closed with Dermabond. Patient was awakened from anesthesia and transferred via her cart to the recovery room in stable condition. All needle, sponge, and instrument counts were correct per the operating personnel x2 counts.
[2023-07-10 12:46] VITALS: BP 109/60; PULSE 78; RESP 12; TEMP 36.9; O2SAT 96
[2023-07-10 12:51] VITALS: BP 100/56; PULSE 72; RESP 16; O2SAT 95
[2023-07-10 12:56] VITALS: BP 112/62; PULSE 76; RESP 17; O2SAT 95
[2023-07-10 13:01] VITALS: BP 106/77; PULSE 74; RESP 18; TEMP 36.8; O2SAT 95
[2023-07-10 13:05] VITALS: BP 123/75; PULSE 77; RESP 16; TEMP 36.6; O2SAT 95
--- NOTE | 2023-07-10 13:45 | ANE.PACU2 ---
Inpatient post-anesthesia follow up: Airway intact: Yes Vital signs: Temperature 98 F Pulse Rate 77 Respiratory Rate 16 Blood Pressure 123/75 Pulse Oximetry 95 Oxygen Delivery Me thod Room Air Oxygen Flow Rate Fraction of Inspir ed Oxygen Hydration adequate: Yes Nausea and vomiting: No Pain level: 1 Mental status: Baseline
== END 2023-07-10 13:45 | disposition home or self-care (01) ==
PROVIDERS: PCP Nurse Practitioner Family; Visit Provider Surgery
PROC: (CPT 36561; principal; 2023-07-10 12:00)
DX: C17.0 Malignant neoplasm of duodenum (principal); C78.7 Secondary malignant neoplasm of liver and intrahepatic bile duct
CPT/HCPCS: 36561; 71045; 77001; A4216; C1788; J0690; J1644; J2704; J3010; J7030

== ENCOUNTER 2023-08-08 14:00 | Oncology outpatient (recurring) (ONCR) | payer MEDICAID, SELFPAY ==
[2023-07-17 08:40] LABS: Basophils # 0.1 10^3/uL (0.0-0.1); Basophils % 0.6 %; Eosinophils # 0.3 10^3/uL (0.0-0.8); Eosinophils % 3.3 %; Hematocrit 32.1 % (37-53); Lymphocytes # 1.5 10^3/uL (0.8-4.8); Lymphocytes % 17.1 %; Mean Corpuscular HGB Conc 32.1 g/dL (30-55); Mean Corpuscular Hemoglobin 25.6 pg (27-33); Mean Corpuscular Volume 79.9 fl (82-101); Mean Platelet Volume 8.5 fL (7.4-10.4); Monocytes # 0.6 10^3/uL (0.2-0.9); Monocytes % 6.6 %; Neutrophils # 6.14 10^3/uL (1.8-7.7); Neutrophils % 69.6 %; Nucleated Red Blood Cells % 0 %; Platelet Count 347 10^3/cmm (157-399); Red Blood Count 4.02 10^6/uL (3.85-5.65); Red Cell Distribution Width 24.7 % (12.1-15.1); White Blood Count 8.82 10^3/uL (3.29-11.43)
[2023-07-17 09:10] LABS: Carcinoembryonic Antigen 12.5 ng/mL (0.0-4.7)
[2023-07-17 09:21] LABS: Alanine Aminotransferase 57 U/L (0-41); Albumin Level 2.9 g/dL (3.5-5.2); Alkaline Phosphatase 430 U/L (40-130); Anion Gap 14.3 (5-19); Aspartate Amino Transferase 38 U/L (0-40); Blood Urea Nitrogen 13 mg/dL (8-23); Calcium 8.5 mg/dL (8.5-10.5); Carbon Dioxide 22 mmol/L (22-29); Chloride 99 mmol/L (98-107); Creatinine Clr Calc Pharmacy 139.2314; Globulin 2.8 g/dL (1.3-4.6); Glomerular Filtration Rate 136.5 mL/min (90-130); Glucose 141 mg/dL (65-115); Osmolality Calculated 276 mOsm/kg (285-295); Potassium 3.3 mmol/L (3.5-5.1); Sodium 132 mmol/L (136-145); Total Protein 5.7 g/dL (6.6-8.7)
[2023-07-17 09:24] LABS: Total Bilirubin 14.2 mg/dL (0.15-1.2)
[2023-07-17 11:25] LABS: Cancer Antigen 19 9 40.57 U/mL (0-35)
[2023-07-24 08:29] LABS: Basophils % 0.4 %; Eosinophils # 0.2 10^3/uL (0.0-0.8); Eosinophils % 1.5 %; Hematocrit 34.3 % (37-53); Lymphocytes # 2.5 10^3/uL (0.8-4.8); Lymphocytes % 24.6 %; Mean Corpuscular HGB Conc 31.8 g/dL (30-55); Mean Corpuscular Hemoglobin 26.7 pg (27-33); Mean Corpuscular Volume 84.1 fl (82-101); Mean Platelet Volume 8.5 fL (7.4-10.4); Monocytes # 0.6 10^3/uL (0.2-0.9); Monocytes % 6.3 %; Neutrophils % 66.7 %; Nucleated Red Blood Cells % 0 %; Platelet Count 403 10^3/cmm (157-399); Red Blood Count 4.08 10^6/uL (3.85-5.65); Red Cell Distribution Width 22.8 % (12.1-15.1); Reticulocyte % 2.6 % (0.5-2.0); White Blood Count 10.04 10^3/uL (3.29-11.43)
[2023-07-24 08:55] LABS: Alanine Aminotransferase 63 U/L (0-41); Albumin Level 3.4 g/dL (3.5-5.2); Alkaline Phosphatase 325 U/L (40-130); Anion Gap 14.1 (5-19); Aspartate Amino Transferase 52 U/L (0-40); Blood Urea Nitrogen 15 mg/dL (8-23); Calcium 8.9 mg/dL (8.5-10.5); Carbon Dioxide 23 mmol/L (22-29); Chloride 104 mmol/L (98-107); Creatinine Clr Calc Pharmacy 117.3758; Ferritin 68 ng/mL (30-400); Globulin 2.9 g/dL (1.3-4.6); Glomerular Filtration Rate 114.3 mL/min (90-130); Glucose 144 mg/dL (65-115); Iron 33 ug/dL (59-158); Osmolality Calculated 287 mOsm/kg (285-295); Percent Saturation 9.4 % (20-50); Potassium 4.1 mmol/L (3.5-5.1); Sodium 137 mmol/L (136-145); Total Iron Binding Capacity 350 mcg/dl; Total Protein 6.3 g/dL (6.6-8.7); Unsaturated Iron Binding 317 ug/dL (112-347)
[2023-07-24 09:04] LABS: Vitamin B12 795 pg/mL (232-1245)
[2023-07-24 09:13] LABS: Total Bilirubin 8.4 mg/dL (0.15-1.2)
[2023-07-24 09:26] LABS: Carcinoembryonic Antigen 13.9 ng/mL (0.0-4.7)
[2023-07-27 11:59] LABS: Methylmalonic Acid 108 nmol/L (87-318)
[2023-07-27 13:05] LABS: Soluble Transferrin Receptor 2.22 mg/L (0.76-1.76)
[2023-07-31] MEDS: OLANZapine 5 mg TABLET 2.5 MG PO (09:02)
[2023-07-31 09:03] VITALS: BP 112/67; PULSE 95; RESP 18; TEMP 36.9; O2SAT 98
[2023-07-31] MEDS: LORazepam 2 mg/mL INJ 1 mL 0.25 MG IVP (09:03)
[2023-07-31] MEDS: sodium chloride 0.9% 1,000 ML 999 ML IV (09:03)
[2023-07-31 09:15] LABS: Basophils % 0.3 %; Eosinophils # 0.1 10^3/uL (0.0-0.8); Eosinophils % 1.3 %; Hematocrit 38.7 % (37-53); Lymphocytes # 1.9 10^3/uL (0.8-4.8); Lymphocytes % 19.4 %; Mean Corpuscular HGB Conc 32.6 g/dL (30-55); Mean Corpuscular Hemoglobin 26.6 pg (27-33); Mean Corpuscular Volume 81.6 fl (82-101); Mean Platelet Volume 8.2 fL (7.4-10.4); Monocytes # 0.8 10^3/uL (0.2-0.9); Monocytes % 8.7 %; Neutrophils # 6.71 10^3/uL (1.8-7.7); Neutrophils % 69.8 %; Nucleated Red Blood Cells % 0 %; Platelet Count 352 10^3/cmm (157-399); Red Blood Count 4.74 10^6/uL (3.85-5.65); Red Cell Distribution Width 19.7 % (12.1-15.1); White Blood Count 9.63 10^3/uL (3.29-11.43)
[2023-07-31 09:43] LABS: Alanine Aminotransferase 106 U/L (0-41); Albumin Level 3.6 g/dL (3.5-5.2); Alkaline Phosphatase 222 U/L (40-130); Anion Gap 16.1 (5-19); Aspartate Amino Transferase 72 U/L (0-40); Blood Urea Nitrogen 26 mg/dL (8-23); Calcium 9.1 mg/dL (8.5-10.5); Cancer Antigen 19 9 12.97 U/mL (0-35); Carbon Dioxide 31 mmol/L (22-29); Chloride 86 mmol/L (98-107); Globulin 2.8 g/dL (1.3-4.6); Glomerular Filtration Rate 75.7 mL/min (90-130); Glucose 131 mg/dL (65-115); Osmolality Calculated 277 mOsm/kg (285-295); Potassium 3.1 mmol/L (3.5-5.1); Sodium 130 mmol/L (136-145); Total Bilirubin 5.8 mg/dL (0.15-1.2); Total Protein 6.4 g/dL (6.6-8.7)
[2023-07-31 10:33] VITALS: BP 124/77; PULSE 85; RESP 17; TEMP 36.7; O2SAT 94
[2023-08-01 08:11] VITALS: BP 104/78; PULSE 66; RESP 16; TEMP 36.3; O2SAT 100
[2023-08-01] MEDS: sodium chloride 0.9% 1,000 ML 999 ML IV (08:15)
[2023-08-01] MEDS: LORazepam 2 mg/mL INJ 1 mL 0.25 MG IVP (09:47)
[2023-08-01] MEDS: OLANZapine 5 mg TABLET 2.5 MG PO (09:47)
[2023-08-01 10:21] VITALS: BP 110/71; PULSE 83; RESP 16; TEMP 36.8; O2SAT 95
[2023-08-02] MEDS: alteplase 1 mg/mL SDV 2 mL 2 MG INTRACATH (08:13)
[2023-08-02 08:22] VITALS: BP 111/71; PULSE 79; RESP 16; TEMP 36.6; O2SAT 93
[2023-08-02 08:34] LABS: Basophils % 0.3 %; Eosinophils # 0.3 10^3/uL (0.0-0.8); Eosinophils % 2.9 %; Hematocrit 39.7 % (37-53); Lymphocytes # 2.3 10^3/uL (0.8-4.8); Mean Corpuscular HGB Conc 31.7 g/dL (30-55); Mean Corpuscular Hemoglobin 26.8 pg (27-33); Mean Corpuscular Volume 84.3 fl (82-101); Mean Platelet Volume 8.3 fL (7.4-10.4); Monocytes # 0.8 10^3/uL (0.2-0.9); Monocytes % 8.5 %; Neutrophils # 6.07 10^3/uL (1.8-7.7); Neutrophils % 64.1 %; Nucleated Red Blood Cells % 0 %; Platelet Count 333 10^3/cmm (157-399); Red Blood Count 4.71 10^6/uL (3.85-5.65); White Blood Count 9.46 10^3/uL (3.29-11.43)
[2023-08-02 08:46] LABS: Alanine Aminotransferase 96 U/L (0-41); Albumin Level 3.5 g/dL (3.5-5.2); Alkaline Phosphatase 199 U/L (40-130); Anion Gap 12.2 (5-19); Aspartate Amino Transferase 53 U/L (0-40); Blood Urea Nitrogen 18 mg/dL (8-23); Calcium 8.9 mg/dL (8.5-10.5); Carbon Dioxide 37 mmol/L (22-29); Chloride 90 mmol/L (98-107); Creatinine Clr Calc Pharmacy 89.7636; Globulin 2.9 g/dL (1.3-4.6); Glomerular Filtration Rate 85.5 mL/min (90-130); Glucose 130 mg/dL (65-115); Osmolality Calculated 286 mOsm/kg (285-295); Potassium 3.2 mmol/L (3.5-5.1); Sodium 136 mmol/L (136-145); Total Bilirubin 5.5 mg/dL (0.15-1.2); Total Protein 6.4 g/dL (6.6-8.7)
[2023-08-02] MEDS: sodium chloride 0.9% 1,000 ML 999 ML IV (09:48)
[2023-08-02] MEDS: palonosetron 0.25 mg/5 mL SDV IVP (10:47)
[2023-08-02 11:08] LABS: Magnesium 2.4 mg/dL (1.7-2.3)
[2023-08-02] MEDS: DEXTROSE 5% IV ×3 (11:37→14:05)
[2023-08-02] MEDS: LEUCOVORIN IV (11:37)
[2023-08-02] MEDS: OXALIPLATIN IV (11:38)
[2023-08-02] MEDS: dextrose 5% 250 ML 75 ML IV (11:48)
[2023-08-02] MEDS: potassium chloride ER 10 mEq Tablet 20 MEQ PO (11:50)
[2023-08-02] MEDS: LORazepam 2 mg/mL INJ 1 mL 0.25 MG IVP (12:04)
[2023-08-02] MEDS: atropine 1 mg/mL SDV 1 mL 0.400000000000000022 MG IV (13:57)
[2023-08-02] MEDS: promethazine 25 mg/mL SDV 1 mL 12.5 MG IM (14:02)
[2023-08-02] MEDS: IRINOTECAN IV (14:05)
--- NOTE | 2023-08-02 15:27 | PC.NURSE ---
1400 July [facility] notified of continuous vomiting of liquid green emesis. Phenergan and ativan given per order with good results.
[2023-08-02] MEDS: fluorouraciL 4,700 MG in elastomeric pump 1 PUMP 2.04000000000000004 MG IV (15:34)
[2023-08-02 15:39] VITALS: BP 126/70; PULSE 92; RESP 16; TEMP 36.3; O2SAT 95
[2023-08-04 10:34] VITALS: BP 119/75; PULSE 85; RESP 16; TEMP 36.6; O2SAT 96
[2023-08-04] MEDS: sodium chloride 0.9% 1,000 ML 999 ML IV (10:45)
[2023-08-04 11:28] VITALS: BP 128/72; PULSE 73; O2SAT 95
[2023-08-07 15:01] VITALS: BP 106/70; PULSE 94; RESP 16; TEMP 36.6; O2SAT 97
[2023-08-07] MEDS: sodium chloride 0.9% 1,000 ML 999 ML IV (15:07)
[2023-08-07] MEDS: promethazine 25 mg/mL SDV 1 mL 12.5 MG IM (15:12)
[2023-08-07 16:15] VITALS: BP 137/84; PULSE 80; RESP 16; TEMP 36.4; O2SAT 94
[2023-08-08] MEDS: sodium chloride 0.9% 500 ML 999 ML IV (14:39)
[2023-08-08] MEDS: palonosetron 0.25 mg/5 mL SDV IVP (14:49)
[2023-08-08 14:53] LABS: Basophils % 0.3 %; Eosinophils # 0.1 10^3/uL (0.0-0.8); Eosinophils % 1.4 %; Hematocrit 36.2 % (37-53); Lymphocytes # 2.2 10^3/uL (0.8-4.8); Lymphocytes % 58.9 %; Mean Corpuscular HGB Conc 33.1 g/dL (30-55); Mean Corpuscular Hemoglobin 26.8 pg (27-33); Monocytes # 0.1 10^3/uL (0.2-0.9); Monocytes % 2.2 %; Neutrophils # 1.35 10^3/uL (1.8-7.7); Neutrophils % 36.7 %; Nucleated Red Blood Cells % 0 %; Platelet Count 201 10^3/cmm (157-399); Red Blood Count 4.47 10^6/uL (3.85-5.65); Red Cell Distribution Width 17.1 % (12.1-15.1); White Blood Count 3.67 10^3/uL (3.29-11.43)
[2023-08-08 15:04] LABS: Alanine Aminotransferase 85 U/L (0-41); Albumin Level 3.6 g/dL (3.5-5.2); Alkaline Phosphatase 167 U/L (40-130); Anion Gap 15.2 (5-19); Aspartate Amino Transferase 57 U/L (0-40); Blood Urea Nitrogen 19 mg/dL (8-23); Calcium 8.8 mg/dL (8.5-10.5); Carbon Dioxide 34 mmol/L (22-29); Chloride 83 mmol/L (98-107); Creatinine Clr Calc Pharmacy 115.4103; Glomerular Filtration Rate 114.3 mL/min (90-130); Glucose 119 mg/dL (65-115); Osmolality Calculated 273 mOsm/kg (285-295); Sodium 130 mmol/L (136-145); Total Bilirubin 3.7 mg/dL (0.15-1.2); Total Protein 6.6 g/dL (6.6-8.7)
[2023-08-08 15:13] LABS: Potassium 2.2 mmol/L (3.5-5.1)
--- NOTE | 2023-08-08 16:25 | PC.NURSE ---
Pt has K+ of 2.2. Verbal orders from Erum Tyler NP to take pt to ER for evaluation and potassium infusion. JW
== END 2023-08-08 23:59 | disposition home or self-care (01) ==
PROVIDERS: Internal Medicine; Nurse Practitioner Family; PCP Nurse Practitioner Family; Visit Provider Dermatology
DX: C17.0 Malignant neoplasm of duodenum (principal); Z53.9 Procedure and treatment not carried out, unspecified reason
CPT/HCPCS: 36415; 36593; 80053; 82378; 82607; 82728; 82746; 83540; 83550; 83735; 83921; 84238; 85025; 85045; 86301; 96360; 96365; 96368; 96372; 96374; 96375; 96413; 96415; 96416; 96417; J0461; J0640; J1100; J2060; J2469; J2550; J2997; J7030; J7040; J7060; J9190; J9206; J9263

== ENCOUNTER 2023-08-08 15:22 | Inpatient (IN) | payer MEDICAID, SELFPAY ==
[2023-08-08] VITALS (10 sets, daily range): BP systolic 109–150; BP diastolic 70–112; PULSE 75–97; RESP 15–20; TEMP 36.4; O2SAT 95–100
--- NOTE | 2023-08-08 15:35 | ECG_ITS ---
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 Measurements Intervals [place] Rate: 80 P: 0 FL: 0 QRS: -60 QRSD: 91 T: 60 QT: 497 QTc: 575 Interpretive Statements SINUS RHYTHM LEFT ANTERIOR FASCICULAR BLOCK [QRS AXIS <= -45, QR IN I, RS IN II] POSSIBLE INFERIOR MYOCARDIAL INFARCTION , OF INDETERMINATE AGE [30 ms Q WAVE IN II/aVF] MODERATE T-WAVE ABNORMALITY, CONSIDER ANTEROLATERAL ISCHEMIA [-0.1+ mV T-WAVE IN V3-V6] Compared to ECG 12/02/2020 10:07:20 Left anterior fascicular block now present Myocardial infarct finding now present T-wave abnormality now present Possible ischemia now present Sinus rhythm no longer present Sinus arrhythmia no longer present Left-axis deviation no longer present Electronically Signed On 08-08-2023 17:20:47 CDT by Juan Manuel Finley M.D. [id number]
[2023-08-08 16:44] LABS: Magnesium 2.2 mg/dL (1.7-2.3)
--- NOTE | 2023-08-08 16:56 | W.ED.RECABL ---
Documented by User: Rick Goldstein DO 08/11/23 19:24 HPI - Recheck/Abnormal Lab/Rx General: Chief Complaint: Recheck/Abnormal Lab/Rx Stated Complaint: low potassium Time Seen by Provider: 08/08/23 16:00 Source: patient Mode of arrival: ambulatory History of Present Illness: 61-year-old male complicated history regarding his cancer. In 2020 he had a colon cancer which was resected thought to be stage I earlier this year he was found to have a mass in the duodenum and a mass around the pancreas it was biopsied according to the oncology notes and discussing him this is an adeno CA that originated out of the duodenum. Although there is a diagnosis of pancreatic cancer in the diagnosis list on his current chart. When I reviewed the pathology report from 07/26/2023 is listed as pancreatic adeno CA. In any event there were also metastasis and is considered to be stage IV. He has not been able to eat or drink lately without vomiting. He has a very large mass in the duodenum according to his old records. Earlier this month he had a biliary stent placed in [place] his bilirubin was as high as 29 it has been decreasing since then. Earlier today he had labs done and showed a potassium of 2.1 he was directed to the emergency room. He denies any recent diarrhea. He has not had any hematochezia melena hematemesis or coffee-ground emesis. Description of his frequent vomiting has been more bilious in nature. He has chronic abdominal pain that is not particularly worsened recently. Associated symptoms: malaise, nausea and abdominal pain (Chronic) Review of Systems Const: Denies: fever(s) or chills Card: Denies: chest pain Resp: Denies: dyspnea GI: Denies: abdominal pain : Denies: dysuria, urinary frequency or urinary urgency Musc: Denies: neck pain or back pain Skin/Breast: Denies: rash PFSH ED PFSH: Medical History Pancreatic adenocarcinoma Adenocarcinoma of colon metastatic to liver Metastatic adenocarcinoma to colorectal region Pancreatic mass Adenocarcinoma of duodenum Colon cancer, ascending T1 N0 M0 Asthma Surgical History History of nasal surgery S/P right hemicolectomy (12/02/20) Extended for ascending colon cancer Status post colonoscopy (11/23/20) H/O esophagogastroduodenoscopy (11/23/20) Family History Brother Hypertension Social History Smoking and tobacco/nicotine status: former use of tobacco/nicotine Quit status (tobacco/nicotine): has quit using Year quit tobacco: 2023 Former quit date comment: 40 years Second hand smoke exposure: No Alcohol intake: never Substance/Drug Use: never Adopted: No Caregiver/support person: No Lives independently: Yes Household members: spouse Housing: House Marital status: Number of children: 2 Highest education level completed: High School Graduate service: No Current occupational status: employed 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 Physical Exam Const: GENERAL APPEARANCE: cooperative and comfortable ORIENTATION/CONSCIOUSNESS: Yes awake, Yes oriented to person, Yes oriented to place and Yes oriented to time HENMT: COMMON NORMALS: normocephalic, atraumatic and hearing grossly normal bilaterally HEAD & SCALP: normocephalic and atraumatic Resp: COMMON NORMALS: normal respiratory effort, No retractions, No use of accessory muscles and clear to auscultation bilaterally AUSCULTATION: clear to auscultation bilaterally Cardio: COMMON NORMALS: regular rate, regular rhythm and No murmurs present (Cardio) RATE: regular rate RHYTHM: regular rhythm GI: COMMON NORMALS: No hepatosplenomegaly present AUSCULTATION: Yes normoactive bowel sounds PALPATION: Yes Tenderness to palpation present (GI), No Guarding due to palpation present (GI) and Yes No hepatosplenomegaly present Extremity: COMMON NORMALS: normal to inspection, capillary refill normal, no clubbing, cyanosis or edema, no calf tenderness and no pedal edema Neuro: SENSORIUM/ORIENTATION: Yes oriented to person, Yes oriented to place and Yes oriented to time Skin: COMMON NORMALS: no rashes or lesions noted GENERAL SKIN EXAM: no rashes or lesions noted Course Vital Signs: Vital signs: Vital Signs Temperature 97.8 F 08/11/23 08:28 Pulse Rate 69 08/11/23 08:28 Respiratory Rate 16 08/11/23 08:28 Blood Pressure 130/71 08/11/23 08:28 Pulse Oximetry 98 08/11/23 08:28 Oxygen Delivery Me thod Room Air 08/11/23 07:32 MDM - Recheck/Abnormal Lab/Rx Medical Decision Making Care signed out to Dr. Machuca at change of shift. See final notes for diagnosis and disposition. Patient is stage IV pancreatic cancer severe hypokalemia potassium replaced patient would consider stenting of the duodenum to relieve his gastric outlet we have put a call into the oncology team who cares for him at [facility] awaiting return call. Severe hypokalemia. Patient has disseminated pancreatic cancer. Patient's CT scan here showed a duodenal obstruction likely from his massive spoken to Dr. Khan at [facility] transfer there for higher level of care. Medical Records I reviewed the patient's medical records. Lab Data I reviewed the patient's lab results. 08/10/23 04:21 08/11/23 04:51 Radiology Impressions Abdomen/Pelvis CT 08/08/23 16:58 IMPRESSION: 1. Invasion of the 3rd portion of the duodenum with findings suggestive of partial gastric/proximal duodenal obstruction. 2. Interval decompression of the biliary tree via cystogastrostomy with associated pneumobilia. There has been slight enlargement of the pancreatic head mass with peritoneal nodularity and regional adenopathy. Chest X-Ray 08/09/23 20:04 IMPRESSION: Adequately positioned NG tube. Laboratory Results WBC 4.82 10^3/uL (3.29-11.43) 08/09/23 00:39 RBC 4.45 10^6/uL (3.85-5.65) 08/09/23 00:39 Hgb 12.00 g/dL (11.27-16.99) 08/09/23 00:39 Hct 36.9 % (37-53) L 08/09/23 00:39 MCV 82.9 fl (82-101) 08/09/23 00:39 MCH 27.0 pg (27-33) 08/09/23 00:39 MCHC 32.5 g/dL (30-55) 08/09/23 00:39 RDW 17.0 % (12.1-15.1) H 08/09/23 00:39 Plt Count 198 10^3/cmm (157-399) 08/09/23 00:39 MPV 8.5 fL (7.4-10.4) 08/09/23 00:39 Neut % (Auto) 49.0 % 08/09/23 00:39 Lymph % (Auto) 46.5 % 08/09/23 00:39 Carl[place] % (Auto) 2.7 % 08/09/23 00:39 Eos % (Auto) 0.6 % 08/09/23 00:39 Baso % (Auto) 0.2 % 08/09/23 00:39 Neut # (Auto) 2.36 10^3/uL (1.8-7.7) 08/09/23 00:39 Lymph # (Auto) 2.2 10^3/uL (0.8-4.8) 08/09/23 00:39 [place] # (Auto) 0.1 10^3/uL (0.2-0.9) L 08/09/23 00:39 Eos # (Auto) 0.0 10^3/uL (0.0-0.8) 08/09/23 00:39 Baso # (Auto) 0.0 10^3/uL (0.0-0.1) 08/09/23 00:39 Nucleated RBC % (auto) 0 % 08/09/23 00:39 Nucleated RBCs # 0.0 /100WBC 08/09/23 00:39 Sodium 136 mmol/L (136-145) 08/09/23 00:39 Potassium 2.9 mmol/L (3.5-5.1) L D 08/09/23 00:39 Chloride 91 mmol/L (98-107) L 08/09/23 00:39 Carbon Dioxide 32 mmol/L (22-29) H 08/09/23 00:39 Anion Gap 15.9 (5-19) 08/09/23 00:39 BUN 16 mg/dL (8-23) 08/09/23 00:39 Creatinine 0.7 mg/dL (0.7-1.2) 08/09/23 00:39 GFR Calculation 114.3 mL/min (90-130) 08/09/23 00:39 Glucose 119 mg/dL (65-115) H 08/09/23 00:39 Calculated Osmolality 284 mOsm/kg (285-295) L 08/09/23 00:39 Calcium 8.3 mg/dL (8.5-10.5) L 08/09/23 00:39 Magnesium 2.2 mg/dL (1.7-2.3) 08/09/23 00:39 Total Bilirubin 3.6 mg/dL (0.15-1.2) H 08/09/23 00:39 AST 60 U/L (0-40) H 08/09/23 00:39 ALT 87 U/L (0-41) H 08/09/23 00:39 Alkaline Phosphatase 155 U/L (40-130) H 08/09/23 00:39 Total Protein 6.6 g/dL (6.6-8.7) 08/09/23 00:39 Albumin 3.5 g/dL (3.5-5.2) 08/09/23 00:39 Globulin 3.1 g/dL (1.3-4.6) 08/09/23 00:39 Lipase 201 U/L (13-60) H 08/08/23 14:34 Discharge Plan Discharge Patient Disposition: Xfer Short-Term Hosp Clinical Impression: Pancreatic adenocarcinoma, Duodenal obstruction Condition: Stable Coding Level of Care Code ED Registered Nurse Cardiovascular Icu for Chg Fwd Documented by User: Pranav Machuca MD 08/09/23 17:43 HPI - Recheck/Abnormal Lab/Rx General: Chief Complaint: Recheck/Abnormal Lab/Rx Stated Complaint: low potassium Time Seen by Provider: 08/08/23 16:00 [facility] ED PFSH: Medical History Pancreatic adenocarcinoma Adenocarcinoma of colon metastatic to liver Metastatic adenocarcinoma to colorectal region Pancreatic mass Adenocarcinoma of duodenum Colon cancer, ascending T1 N0 M0 Asthma Surgical History History of nasal surgery S/P right hemicolectomy (12/02/20) Extended for ascending colon cancer Status post colonoscopy (11/23/20) H/O esophagogastroduodenoscopy (11/23/20) Family History Brother Hypertension Social History Smoking and tobacco/nicotine status: former use of tobacco/nicotine Quit status (tobacco/nicotine): has quit using Year quit tobacco: 2023 Former quit date comment: 40 years Second hand smoke exposure: No Alcohol intake: never Substance/Drug Use: never Adopted: No Caregiver/support person: No Lives independently: Yes Household members: spouse Housing: House Marital status: Number of children: 2 Highest education level completed: High School Graduate service: No Current occupational status: employed 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 Patient has disseminated pancreatic cancer. Patient's CT scan here showed a duodenal obstruction likely from his massive spoken to Dr. Khan at [facility] transfer there for higher level of care. Lab Data 08/10/23 04:21 08/11/23 04:51 Radiology Impressions Abdomen/Pelvis CT 08/08/23 16:58 IMPRESSION: 1. Invasion of the 3rd portion of the duodenum with findings suggestive of partial gastric/proximal duodenal obstruction. 2. Interval decompression of the biliary tree via cystogastrostomy with associated pneumobilia. There has been slight enlargement of the pancreatic head mass with peritoneal nodularity and regional adenopathy. Chest X-Ray 08/09/23 20:04 IMPRESSION: Adequately positioned NG tube. Laboratory Results WBC 4.82 10^3/uL (3.29-11.43) 08/09/23 00:39 RBC 4.45 10^6/uL (3.85-5.65) 08/09/23 00:39 Hgb 12.00 g/dL (11.27-16.99) 08/09/23 00:39 Hct 36.9 % (37-53) L 08/09/23 00:39 MCV 82.9 fl (82-101) 08/09/23 00:39 MCH 27.0 pg (27-33) 08/09/23 00:39 MCHC 32.5 g/dL (30-55) 08/09/23 00:39 RDW 17.0 % (12.1-15.1) H 08/09/23 00:39 Plt Count 198 10^3/cmm (157-399) 08/09/23 00:39 MPV 8.5 fL (7.4-10.4) 08/09/23 00:39 Neut % (Auto) 49.0 % 08/09/23 00:39 Lymph % (Auto) 46.5 % 08/09/23 00:39 [place] % (Auto) 2.7 % 08/09/23 00:39 Eos % (Auto) 0.6 % 08/09/23 00:39 Baso % (Auto) 0.2 % 08/09/23 00:39 Neut # (Auto) 2.36 10^3/uL (1.8-7.7) 08/09/23 00:39 Lymph # (Auto) 2.2 10^3/uL (0.8-4.8) 08/09/23 00:39 [place] # (Auto) 0.1 10^3/uL (0.2-0.9) L 08/09/23 00:39 Eos # (Auto) 0.0 10^3/uL (0.0-0.8) 08/09/23 00:39 Baso # (Auto) 0.0 10^3/uL (0.0-0.1) 08/09/23 00:39 Nucleated RBC % (auto) 0 % 08/09/23 00:39 Nucleated RBCs # 0.0 /100WBC 08/09/23 00:39 Sodium 136 mmol/L (136-145) 08/09/23 00:39 Potassium 2.9 mmol/L (3.5-5.1) L D 08/09/23 00:39 Chloride 91 mmol/L (98-107) L 08/09/23 00:39 Carbon Dioxide 32 mmol/L (22-29) H 08/09/23 00:39 Anion Gap 15.9 (5-19) 08/09/23 00:39 BUN 16 mg/dL (8-23) 08/09/23 00:39 Creatinine 0.7 mg/dL (0.7-1.2) 08/09/23 00:39 GFR Calculation 114.3 mL/min (90-130) 08/09/23 00:39 Glucose 119 mg/dL (65-115) H 08/09/23 00:39 Calculated Osmolality 284 mOsm/kg (285-295) L 08/09/23 00:39 Calcium 8.3 mg/dL (8.5-10.5) L 08/09/23 00:39 Magnesium 2.2 mg/dL (1.7-2.3) 08/09/23 00:39 Total Bilirubin 3.6 mg/dL (0.15-1.2) H 08/09/23 00:39 AST 60 U/L (0-40) H 08/09/23 00:39 ALT 87 U/L (0-41) H 08/09/23 00:39 Alkaline Phosphatase 155 U/L (40-130) H 08/09/23 00:39 Total Protein 6.6 g/dL (6.6-8.7) 08/09/23 00:39 Albumin 3.5 g/dL (3.5-5.2) 08/09/23 00:39 Globulin 3.1 g/dL (1.3-4.6) 08/09/23 00:39 Lipase 201 U/L (13-60) H 08/08/23 14:34 All radiology interpretation(s) finalized by discharge Discharge Plan Discharge Patient Disposition: Xfer Short-Term Hosp Clinical Impression: Pancreatic adenocarcinoma, Duodenal obstruction Condition: Stable Coding Level of Care Code ED Registered Nurse Cardiovascular Icu for Johan Romero
--- NOTE | 2023-08-08 16:58 | CTR_ITS ---
PROCEDURE INFORMATION: Exam: CT Abdomen And Pelvis With Contrast Exam date and time: 08/08/2023 5:30 PM Age: 63 years old Clinical indication: Abdominal pain; Additional info: Abd pain TECHNIQUE: Imaging protocol: Computed tomography of the abdomen and pelvis with contrast. Radiation optimization: All CT scans at this facility use at least one of these dose optimization techniques: automated exposure control; mA and/or kV adjustment per patient size (includes targeted exams where dose is matched to clinical indication); or iterative reconstruction. Contrast material: OMNI 350; Contrast volume: 100 ml; Contrast route: INTRAVENOUS (IV); COMPARISON: CT chest abdpel w/*[id number] 07/07/2023 10:00 AM RADIATION DOSE METRICS: Total DLP (mGy-cm): 463.33 FINDINGS: Lungs: Subsegmental bibasilar atelectasis. Partially visualized 5 mm right middle lobe nodular opacity, favored to represent a fissural node corresponding to the opacity visualized on prior CT of the chest from July 07, 2023 (image 1 of series 3 of the current exam, image 38 of series [address] chest). The visualized lung bases are otherwise grossly clear. Diaphragm: No evidence of diaphragmatic defect. Liver and bile ducts: Again seen is hepatic metastatic disease. The degree of biliary dilatation has significantly improved since prior exam from July 07, 2023. There is extensive pneumobilia related to the cystogastrostomy. The extent of metastatic disease is similar to prior exam though subtle new lesions would be difficult to exclude. Gallbladder: Mild gallbladder wall thickening with small pneumobilia within the gallbladder. No gross pericholecystic inflammatory change to suggest acute cholecystitis. If there is clinical concern for cystic duct obstruction, nuclear medicine hepatobiliary scan may be helpful. Pancreas: Mild pancreatic atrophy. There is ductal dilatation of the pancreatic duct. There is is an approximately 3 cm pancreatic head mass, enlarged since prior (for example, image 41 of series 3 of the current exam in comparison to image 42 of series 6 on the prior exam). There are pathologic peripancreatic nodes and scattered peritoneal nodules (image 50 of series 3 in comparison to image 53 of series 6 on prior exam). Spleen: Unremarkable. Adrenal glands: Unremarkable. Kidneys and ureters: No renal parenchymal abnormality. No hydronephrosis or ureteral stone. Stomach and bowel: Postsurgical changes compatible with right hemicolectomy. There appears to be invasion of the 3rd portion of the duodenum (image 21 of series 5) with nondistended small bowel loops beyond this point and mild gastric distension proximally suspicious for partial obstruction. Cystogastrostomy noted. Appendix: Surgically absent. Intraperitoneal space: Trace free fluid. No evidence of free air or fluid collection. Vasculature: No aneurysmal dilatation or dissection of the abdominal aorta. The celiac trunk, SMA and SUNITA are grossly patent. No evidence of IVC thrombus. The portal vein, SMV and splenic veins are grossly patent. Lymph nodes: There are pathologic peripancreatic, portacaval and guido hepatic nodes. No convincing evidence of retroperitoneal or iliac chain adenopathy. Urinary bladder: Grossly unremarkable. Reproductive: Grossly unremarkable. Bones/joints: No evidence of acute fracture or aggressive osseous lesion. Soft tissues: No evidence of fluid collection or hematoma in the superficial soft tissues. CT/CT abdomen pelvis w con* [id number] IMPRESSION: 1. Invasion of the 3rd portion of the duodenum with findings suggestive of partial gastric/proximal duodenal obstruction. 2. Interval decompression of the biliary tree via cystogastrostomy with associated pneumobilia. There has been slight enlargement of the pancreatic head mass with peritoneal nodularity and regional adenopathy.
[2023-08-08] MEDS: iohexol 350 mg/mL 500 mL Btl (per mL) IV (17:31)
[2023-08-08 17:33] LABS: Lipase 201 U/L (13-60)
[2023-08-08] MEDS: potassium chloride premix 100 ML 25 MEQ IV ×2 (17:42→21:34)
[2023-08-08] MEDS: sodium chloride 0.9% 1,000 ML 125 ML IV (19:14)
[2023-08-08] MEDS: LORazepam 2 mg/mL INJ 10 mL MDV 0.5 MG IVP (19:15)
--- NOTE | 2023-08-08 20:11 | XRR_ITS ---
PROCEDURE INFORMATION: Exam: XR Chest Exam date and time: 08/08/2023 8:27 PM Age: 63 years old Clinical indication: Device placement; Ng tube; Prior surgery; Surgery date: 1-6 months; Surgery type: Port; Additional info: Ng tube placement TECHNIQUE: Imaging protocol: Radiologic exam of the chest. Views: 1 view. COMPARISON: CR XR chest 1V portable [id number] 07/10/2023 11:56 AM FINDINGS: Lungs: No focal consolidation. Pleural spaces: No evidence of pneumothorax. No evidence of pleural effusion. Note that the right costophrenic sulcus is partly outside the field of view. Heart/Mediastinum: Cardiomediastinal silhouette is within normal limits. Left subclavian approach MediPort in place with tip in the region of the cavoatrial junction. Enteric tube in place with tip in the region of the gastric body and side hole distal to the GE junction. Bones/joints: No evidence of acute osseous abnormality. XR/XR chest 1V portable [id number] IMPRESSION: 1. Enteric tube in place with tip in the region of the gastric body and side hole distal to the GE junction.
--- NOTE | 2023-08-08 22:09 | PM.CONSULT ---
Providers/Reason For Consult Consulting Physician/Specialty*: Julius Colvin MD, hospitalist Reason for Consult*: Medical management Requesting Physician: Dr. 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 Lately he has been vomiting. He had a biliary stent earlier this month in [place]. He has not had any fever, hematemesis, melena, hematochezia. He reports his stomach kind of aches all over. He has not been vomiting since the NG has been placed in the emergency department. The emergency department physician reports that he has been accepted at [facility], but at this point when the transfer will occur is not known. They are recommending possible duodenal stent for obstruction. I have been asked to see the patient and manage him medically until transfer, and consideration if this does not occur in a reasonable timeframe to potentially place him in the hospital here. Last bowel movement was yesterday, normal. Review of Systems General: Reports: 10 or more systems reviewed and unremarkable except in HPI and below Card: Denies: chest pain Resp: Denies: dyspnea GI: Reports: abdominal pain, nausea and vomiting Medications/Allergies Home Medications Medication Instructions Recorded Confirmed Last Taken Type hydrocodone 10 mg-acetaminophen 1 tab PO Q4H PRN pain 7 days #42 07/03/23 08/02/23 07/09/23 Rx 325 mg tablet tabs hydroxyzine HCl 25 mg tablet 25 mg PO QID PRN itching #30 tabs 07/17/23 08/02/23 Unknown Rx morphine 15 mg tablet,extended 15 mg PO Q12H 30 days #60 tabs 07/24/23 08/02/23 Unknown Rx release diphenoxylate-atropine 2.5 2 tab PO QID PRN Diarrhea #60 tabs 07/31/23 08/02/23 Unknown Rx mg-0.025 mg tablet (Lomotil) lorazepam 0.5 mg tablet 0.25 - 0.5 mg (0.5 - 1 x 0.5 mg) 07/31/23 08/02/23 Unknown Rx PO Q6H PRN severe nausea #30 tabs olanzapine 2.5 mg tablet 2.5 mg PO DAILY chemo-induced 07/31/23 08/02/23 Unknown Rx nausea/vomiting #30 tabs lactulose 20 gram/30 mL oral 20 g (30 mL) PO Q2H PRN 08/01/23 08/02/23 Unknown Rx solution constipation #1,200 mL potassium chloride 20 mEq 20 meq PO DAILY #10 tabs 08/02/23 08/02/23 Unknown Rx tablet,extended release promethazine 12.5 mg tablet 12.5 mg PO .Q4-6hrs PRN 08/07/23 08/07/23 Unknown Rx nausea/vomiting #30 tabs Allergies Allergy/AdvReac Type Severity Reaction Status Date / Time No Known Allergies Allergy Verified 08/02/23 10:47 Current Medications Generic Name Dose Route Start Last Admin Trade Name Freq PRN Reason Stop Dose Admin Potassium Chloride 100 mls @ 25 mls/hr 08/08/23 17:00 08/08/23 21:34 K-Alexei IV 08/09/23 00:59 25 mls/hr Q4H MARJORIE Administration Sodium Chloride 1,000 mls @ 125 mls/hr 08/08/23 19:00 08/08/23 19:14 Sodium Chloride 0.9% IV 125 mls/hr .Q8H MARJORIE Administration PFSH Acute PFSH: Medical History Pancreatic adenocarcinoma Adenocarcinoma of colon metastatic to liver Metastatic adenocarcinoma to colorectal region Pancreatic mass Adenocarcinoma of duodenum Colon cancer, ascending T1 N0 M0 Asthma Surgical History History of nasal surgery S/P right hemicolectomy (12/02/20) Extended for ascending colon cancer Status post colonoscopy (11/23/20) H/O esophagogastroduodenoscopy (11/23/20) Family History Brother Hypertension Social History Smoking and tobacco/nicotine status: former use of tobacco/nicotine Quit status (tobacco/nicotine): has quit using Year quit tobacco: 2023 Former quit date comment: 40 years Second hand smoke exposure: No Alcohol intake: never Substance/Drug Use: never Adopted: No Caregiver/support person: No Lives independently: Yes Household members: spouse Housing: House Marital status: Number of children: 2 Highest education level completed: High School Graduate service: No Current occupational status: employed 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 HEENT: Atraumatic and normocephalic. Pupils equally round. Icterus noted. Neck is supple no lymphadenopathy thyromegaly Cardiovascular regular rate and rhythm without murmur Lungs clear Abdomen is soft. Slight tenderness, general. Positive bowel sounds. exam is deferred Extremities no cyanosis clubbing. Trace peripheral edema. Skin no rash Neuro no obvious focal deficits. Data Other Labs: LFTs demonstrate a bilirubin of 3.7, AST 57, ALT 85, alk phos of 167. Lipase 201. Chest x-ray which I reviewed demonstrates enteric tube, and gastric body and lungs are clear Abdominal pelvis CT which I reviewed demonstrates invasion of third part of duodenum with partial gastric/proximal duodenal obstruction and decompression of the biliary tree compared to previous CT with some pneumobilia. EKG which I reviewed demonstrates sinus rhythm, left axis deviation, nonspecific ST-T wave changes with left anterior fascicular block. A&P Assessment and plan (1) Duodenal obstruction: Patient with duodenal obstruction. He has known adenocarcinoma of the duodenum. He has had previous right hemicolectomy secondary to adenocarcinoma. This is also affecting his pancreas. The emergency department has arranged transfer to [facility], according to the verbal report that they gave me. I agree this is the most appropriate option for the patient. Continue NG to low intermittent suction (2) Hypokalemia: Patient with significant hypokalemia 80 mEq potassium have been ordered per the emergency department Recheck CMP in the morning Magnesium was checked and normal (3) Hyponatremia: IV fluids have been ordered. Continue normal saline. The reduced rate to 100 cc an hour. Recheck sodium with morning labs. (4) Transaminitis: Patient with transaminitis and hyperbilirubinemia, which is improved since his biliary stent. Continue to monitor Plan Multiple other medical problems as outlined in past medical history Full code currently Will continue to follow along with you, thank you for this consult Consult Attestations Medical Necessity Statement: Not applicable Diagnoses Duodenal obstruction K31.5 Hypokalemia E87.6 Hyponatremia E87.1 Transaminitis R74.01 Time Spent (min) 54
[2023-08-09] VITALS (14 sets, daily range): BP systolic 113–138; BP diastolic 69–100; PULSE 82–97; RESP 15–19; TEMP 36.4–36.7; O2SAT 93–99
--- NOTE | 2023-08-09 | PC.NURSE ---
Regular hospital bed moved into pt room for pt comfort, recliner chair provided for spouse
[2023-08-09 00:57] LABS: Basophils % 0.2 %; Eosinophils % 0.6 %; Hematocrit 36.9 % (37-53); Lymphocytes # 2.2 10^3/uL (0.8-4.8); Lymphocytes % 46.5 %; Mean Corpuscular HGB Conc 32.5 g/dL (30-55); Mean Corpuscular Volume 82.9 fl (82-101); Mean Platelet Volume 8.5 fL (7.4-10.4); Monocytes # 0.1 10^3/uL (0.2-0.9); Monocytes % 2.7 %; Neutrophils # 2.36 10^3/uL (1.8-7.7); Nucleated Red Blood Cells % 0 %; Platelet Count 198 10^3/cmm (157-399); Red Blood Count 4.45 10^6/uL (3.85-5.65); White Blood Count 4.82 10^3/uL (3.29-11.43)
[2023-08-09 01:15] LABS: Alanine Aminotransferase 87 U/L (0-41); Albumin Level 3.5 g/dL (3.5-5.2); Alkaline Phosphatase 155 U/L (40-130); Anion Gap 15.9 (5-19); Aspartate Amino Transferase 60 U/L (0-40); Blood Urea Nitrogen 16 mg/dL (8-23); Calcium 8.3 mg/dL (8.5-10.5); Carbon Dioxide 32 mmol/L (22-29); Chloride 91 mmol/L (98-107); Creatinine Clr Calc Pharmacy 112.0408; Globulin 3.1 g/dL (1.3-4.6); Glomerular Filtration Rate 114.3 mL/min (90-130); Glucose 119 mg/dL (65-115); Magnesium 2.2 mg/dL (1.7-2.3); Osmolality Calculated 284 mOsm/kg (285-295); Sodium 136 mmol/L (136-145); Total Bilirubin 3.6 mg/dL (0.15-1.2); Total Protein 6.6 g/dL (6.6-8.7)
[2023-08-09 01:17] LABS: Potassium 2.9 mmol/L (3.5-5.1)
[2023-08-09] MEDS: sodium chloride 0.9% 1,000 ML 100 ML IV (04:08)
[2023-08-09] MEDS: ondansetron 2 mg/ML SDV 2 mL 4 MG IVP (05:42)
[2023-08-09] MEDS: lidocaine 1% 5 ML in potassium chloride premix 100 ML 26.25 ML IV ×2 (07:08→10:50)
--- NOTE | 2023-08-09 09:17 | PC.NURSE ---
This nurse received report from Lindsey in ER at 9:16.
--- NOTE | 2023-08-09 09:18 | PC.NURSE ---
report called to Cara on Med-Surg--no further questions at end of report verbalized.
--- NOTE | 2023-08-09 09:18 | PC.NURSE ---
Emiliana from [facility] transfer called @0920, states no further updates on bed transfer, requested vitals and pt status update. this nurse informed transfer line that pt would be on Med-Surg, room 251-2.
--- NOTE | 2023-08-09 09:51 | PC.NURSE ---
Pt was brought up from ER via bed. This nurse assumed care of pt at 9:44.
[2023-08-09] MEDS: pantoprazole 40 mg SDV IVP ×2 (10:49→21:40)
[2023-08-09] MEDS: enoxaparin 40 mg/0.4 mL Syringe SUBCUT (10:49)
[2023-08-09] MEDS: sodium chloride 0.9% 1,000 ML 125 ML IV ×2 (10:50→17:54)
--- NOTE | 2023-08-09 12:26 | P.PN_ITS ---
Subjective 2 Subjective: seen this am pt pending transfer to [facility] offers no complaints by pt at this time. Vitals/I&O/Wt Last Vital Signs Temp 97.6 F 08/09/23 11:19 Pulse 85 08/09/23 11:19 Resp 16 08/09/23 11:19 BP 132/81 08/09/23 11:19 Pulse Ox 98 08/09/23 11:19 O2 Del Method Room Air 08/09/23 11:19 08/08/23 08/09/23 08/09/23 22:59 06:59 14:59 Intake Total 96.667 / 96.667 1100 / 9140.524 8109.125 / 1094.125 Output Total 1300 / 1300 Balance 96.667 / 96.667 -200 / -502.810 0950.125 / 1094.125 Weight last 48 hrs Weight 68.039 kg Weight 68.039 kg Physical Exam 2 Narrative: General exam has a white male, no apparent distress, with an NG tube. HEENT: Atraumatic and normocephalic. Pupils equally round. Icterus noted. NG tube in place Cardiovascular regular rate and rhythm without murmur Lungs clear Abdomen is soft. Slight tenderness, general. Positive bowel sounds. exam is deferred Extremities no cyanosis clubbing. Trace peripheral edema. Skin no rash Neuro no obvious focal deficits. Data 08/09/23 00:39 08/09/23 00:39 A&P Assessment and plan (1) Duodenal obstruction: Patient with duodenal obstruction. He has known adenocarcinoma of the duodenum. He has had previous right hemicolectomy secondary to adenocarcinoma. This is also affecting his pancreas. The emergency department has arranged transfer to [facility], according to the verbal report that they gave me. I agree this is the most appropriate option for the patient. Continue NG to low intermittent suction (2) Hypokalemia: Patient with significant hypokalemia 80 mEq potassium have been ordered per the emergency department Recheck CMP in the morning Magnesium was checked and normal (3) Hyponatremia: IV fluids have been ordered. Continue normal saline. The reduced rate to 100 cc an hour. Recheck sodium with morning labs. (4) Transaminitis: Patient with transaminitis and hyperbilirubinemia, which is improved since his biliary stent. Continue to monitor Plan Multiple other medical problems as outlined in past medical history Full code currently Will continue to follow along with you, thank you for this consult 08/08 - continue as noted above in consult note awaiting transfer to [facility] this document should also serve as transfer summary Attestations 2 Medical Necessity Statement*: awaiting transfer to [facility] Diagnoses Duodenal obstruction K31.5 Hypokalemia E87.6 Hyponatremia E87.1 Transaminitis R74.01
[2023-08-09 19:46] LABS: Anion Gap 14.2 (5-19); Blood Urea Nitrogen 18 mg/dL (8-23); Calcium 7.5 mg/dL (8.5-10.5); Carbon Dioxide 29 mmol/L (22-29); Chloride 96 mmol/L (98-107); Creatinine Clr Calc Pharmacy 130.7143; Glomerular Filtration Rate 136.5 mL/min (90-130); Glucose 99 mg/dL (65-115); Osmolality Calculated 284 mOsm/kg (285-295); Potassium 3.2 mmol/L (3.5-5.1); Sodium 136 mmol/L (136-145)
--- NOTE | 2023-08-09 20:04 | XRR_ITS ---
PROCEDURE INFORMATION: Exam: XR Chest Exam date and time: 08/09/2023 8:38 PM Age: 63 years old Clinical indication: Device placement; Ng tube; Additional info: Ng tube placment verification after tube slipped partially TECHNIQUE: Imaging protocol: Radiologic exam of the chest. Views: 1 view. COMPARISON: 1. CR (CHEST, ) 08/08/2023 8:27 PM 2. CR XR chest 1V portable [id number] 07/10/2023 11:[address] chest abdpel w/*[id number] 07/07/2023 10:00 AM FINDINGS: Tubes, catheters and devices: NG tube terminates in the stomach with side hole in the stomach. Left chest port terminates at the right atrium. Lungs: Mild left basilar linear atelectasis versus scarring. Imaged lungs are otherwise clear. Pleural spaces: No large pleural effusion or pneumothorax. Heart/Mediastinum: Unremarkable. No cardiomegaly. Bones/joints: Unremarkable. XR/XR chest 1V portable [id number] IMPRESSION: Adequately positioned NG tube.
[2023-08-09] MEDS: morphine 4 mg/mL SDV 1 mL 2 MG IVP (23:58)
[2023-08-10] VITALS (11 sets, daily range): BP systolic 121–152; BP diastolic 66–83; PULSE 67–77; RESP 16–17; TEMP 36.4–36.8; O2SAT 96–97
[2023-08-10] MEDS: ondansetron 2 mg/ML SDV 2 mL 4 MG IVP ×4 (00:02→22:54)
[2023-08-10] MEDS: sodium chloride 0.9% 1,000 ML 125 ML IV ×2 (01:40→08:44)
[2023-08-10] MEDS: morphine 4 mg/mL SDV 1 mL 2 MG IVP ×4 (04:33→22:49)
[2023-08-10 05:04] LABS: Basophils % 0.2 %; Eosinophils # 0.1 10^3/uL (0.0-0.8); Eosinophils % 2.1 %; Hematocrit 30.5 % (37-53); Lymphocytes # 2.5 10^3/uL (0.8-4.8); Lymphocytes % 51.5 %; Mean Corpuscular HGB Conc 32.1 g/dL (30-55); Mean Corpuscular Hemoglobin 26.7 pg (27-33); Mean Corpuscular Volume 83.1 fl (82-101); Monocytes # 0.1 10^3/uL (0.2-0.9); Monocytes % 2.7 %; Neutrophils # 2.07 10^3/uL (1.8-7.7); Neutrophils % 43.1 %; Nucleated Red Blood Cells % 0 %; Platelet Count 144 10^3/cmm (157-399); Red Blood Count 3.67 10^6/uL (3.85-5.65); Red Cell Distribution Width 16.8 % (12.1-15.1)
[2023-08-10 06:00] LABS: Alanine Aminotransferase 75 U/L (0-41); Alkaline Phosphatase 111 U/L (40-130); Anion Gap 15.9 (5-19); Aspartate Amino Transferase 49 U/L (0-40); Blood Urea Nitrogen 18 mg/dL (8-23); Calcium 7.9 mg/dL (8.5-10.5); Carbon Dioxide 27 mmol/L (22-29); Chloride 98 mmol/L (98-107); Creatinine Clr Calc Pharmacy 131.8604; Globulin 2.4 g/dL (1.3-4.6); Glomerular Filtration Rate 136.5 mL/min (90-130); Glucose 78 mg/dL (65-115); Magnesium 2.1 mg/dL (1.7-2.3); Osmolality Calculated 287 mOsm/kg (285-295); Sodium 138 mmol/L (136-145); Total Bilirubin 2.9 mg/dL (0.15-1.2); Total Protein 5.4 g/dL (6.6-8.7)
[2023-08-10 06:02] LABS: Potassium 2.9 mmol/L (3.5-5.1)
[2023-08-10] MEDS: lidocaine 1% 5 ML in potassium chloride premix 100 ML 26.25 ML IV (06:52)
[2023-08-10] MEDS: enoxaparin 40 mg/0.4 mL Syringe SUBCUT (08:44)
[2023-08-10] MEDS: pantoprazole 40 mg SDV IVP ×2 (08:50→22:01)
--- NOTE | 2023-08-10 09:13 | PC.NURSE ---
This nurse gave an update to Itzel with [facility] at 914am.
--- NOTE | 2023-08-10 09:26 | PC.CHAP ---
Pastoral Care Encounter/Spiritual Assessment Type of Contact [] Declined clam digger visit [] Patient/Family/Request visit [] Outpatient visit [] Follow-up visit [] Physician referral [] Code/Alert [x] Routine visit [] Staff referral [] Actively dying [] Patient sleeping [] Family support [] [] Out of room [] Palliative care [] [] Receiving care in room [] Pre-surgical visit [] Trauma [] Long length of stay [] ICU visit [] Other: Relational/Emotional Strength [x] Patient feels connected with others/family/visitors/staff [] Distress [] Loneliness/isolation [] Abandonment Spirituality of Patient [x] Person of Araseli [] Attends Mu-Ism of their Araseli [x] Believes in Prayer [] Reads Bible or Anabaptist materials [] There are Spiritual issues to be addressed Rehabilitation Program Manager Interventions [x] Prayer [x] Active listening [] Non-anxious presence [x] Spiritual/emotional support [] Crisis/trauma care [] Spiritual counseling [] Bereavement support [] Provided bereavement packet [] Provided Bible/devotional materials [] Provided toy/stuffed animal, coloring book to patient or family member [] Provided Communion [] Anointing/[place] [] Salvation [] Completed spiritual assessment [] Other: Impact on Illness or Injury [] Angry [] Fearful [] Anxious [] Often cries [] Exhaustion [] Unable to work [] Unable to attend druze [] Unable to walk/stand [] Unable to read [] Unable to drive [] Unable to eat/drink [] Unable to sleep [] Unable to be with family [] Patient intubated [] Other: Summary Time spent with patient 5 vmin
--- NOTE | 2023-08-10 12:38 | PM.PN ---
Subjective Subjective: seen this am pt pending transfer to [facility] offers no complaints by pt at this time. Vitals/I&O/Wt Last Vital Signs Temp 98.2 F 08/10/23 11:29 Pulse 70 08/10/23 11:29 Resp 16 08/10/23 11:29 BP 135/83 08/10/23 11:29 Pulse Ox 97 08/10/23 11:29 O2 Del Method Room Air 08/10/23 11:29 08/09/23 08/10/23 08/10/23 22:59 06:59 14:59 Intake Total 988.333 / 2082.458 970.833 / 3053.291 988.333 / 988.333 Output Total 1000 / 1000 Balance -11.667 / 1082.458 970.833 / 2053.291 988.333 / 988.333 Weight last 48 hrs Weight 69.626 kg Weight 68.039 kg Weight 68.039 kg Physical Exam Narrative: General exam has a white male, no apparent distress, with an NG tube. HEENT: Atraumatic and normocephalic. Pupils equally round. Icterus noted. NG tube in place Cardiovascular regular rate and rhythm without murmur Lungs clear Abdomen is soft. Slight tenderness, general. Positive bowel sounds. exam is deferred Extremities no cyanosis clubbing. Trace peripheral edema. Skin no rash Neuro no obvious focal deficits. Data 08/10/23 04:21 08/10/23 04:21 A&P Assessment and plan (1) Duodenal obstruction: Patient with duodenal obstruction. He has known adenocarcinoma of the duodenum. He has had previous right hemicolectomy secondary to adenocarcinoma. This is also affecting his pancreas. The emergency department has arranged transfer to [place], according to the verbal report that they gave me. I agree this is the most appropriate option for the patient. Continue NG to low intermittent suction (2) Hypokalemia: Patient with significant hypokalemia 80 mEq potassium have been ordered per the emergency department Recheck CMP in the morning Magnesium was checked and normal (3) Hyponatremia: IV fluids have been ordered. Continue normal saline. The reduced rate to 100 cc an hour. Recheck sodium with morning labs. (4) Transaminitis: Patient with transaminitis and hyperbilirubinemia, which is improved since his biliary stent. Continue to monitor Plan Multiple other medical problems as outlined in past medical history Full code currently Will continue to follow along with you, thank you for this consult 08/09 - continue as noted above in consult note awaiting transfer to [facility] this document should also serve as transfer summary -Replete hypokalemia ? Discussed with patient regarding TPN or PPN. and patient both declined that offer at this time and state that they would like to go up to [place] to decide what to do further. However does state that if there is no bed available by tomorrow evening they may consider starting TPN here. Attestations Medical Necessity Statement*: awaiting transfer to [facility] Diagnoses Duodenal obstruction K31.5 Hypokalemia E87.6 Hyponatremia E87.1 Transaminitis R74.01
[2023-08-10] MEDS: dextrose 5%-ns + KCl 20 20 MEQ/1,000 ML BAG 125 MEQ IV ×2 (14:10→22:50)
[2023-08-11] VITALS (7 sets, daily range): BP systolic 119–137; BP diastolic 66–81; PULSE 66–72; RESP 16–18; TEMP 36.4–36.6; O2SAT 97–99
[2023-08-11] MEDS: ondansetron 2 mg/ML SDV 2 mL 4 MG IVP ×2 (02:44→06:32)
[2023-08-11] MEDS: morphine 4 mg/mL SDV 1 mL 2 MG IVP ×2 (02:44→06:31)
[2023-08-11 06:16] LABS: Blood Urea Nitrogen 11 mg/dL (8-23); Calcium 7.6 mg/dL (8.5-10.5); Carbon Dioxide 24 mmol/L (22-29); Chloride 105 mmol/L (98-107); Creatinine Clr Calc Pharmacy 132.8434; Glomerular Filtration Rate 136.5 mL/min (90-130); Glucose 128 mg/dL (65-115); Osmolality Calculated 287 mOsm/kg (285-295); Sodium 138 mmol/L (136-145)
[2023-08-11] MEDS: dextrose 5%-ns + KCl 20 20 MEQ/1,000 ML BAG 125 MEQ IV (06:37)
== END 2023-08-11 08:29 | disposition short-term general hospital (02) | DRG 381 ==
LOC: ER 19:22 → MEDSURG 08-09 09:06
PROVIDERS: Family Medicine; Internal Medicine; Physician Assistant; Admitting Provider Internal Medicine; Emergency Provider Emergency Medicine; PCP Nurse Practitioner Family; Visit Provider Internal Medicine
DX: K31.5 Obstruction of duodenum (principal); C18.9 Malignant neoplasm of colon, unspecified; E87.1 Hypo-osmolality and hyponatremia; C78.89 Secondary malignant neoplasm of other digestive organs; E87.6 Hypokalemia; R74.01 Elevation of levels of liver transaminase levels
CPT/HCPCS: 36415; 36591; 71045; 74177; 80048; 80053; 83690; 83735; 85025; 93005; 96360; 96365; 96366; 96367; 96372; 96375; 99285; C9113; J1650; J2060; J2270; J2405; J2469; J2550; J3480; J7030; J7040; Q9967

== ENCOUNTER 2023-09-07 14:30 | Oncology outpatient (recurring) (ONCR) | payer MEDICAID, SELFPAY ==
[2023-08-23 09:24] LABS: Basophils % 0.3 %; Eosinophils % 0.3 %; Hematocrit 32.6 % (37-53); Lymphocytes # 2.5 10^3/uL (0.8-4.8); Lymphocytes % 21.9 %; Mean Corpuscular HGB Conc 32.2 g/dL (30-55); Mean Corpuscular Volume 83.8 fl (82-101); Mean Platelet Volume 7.9 fL (7.4-10.4); Monocytes # 0.8 10^3/uL (0.2-0.9); Monocytes % 6.5 %; Neutrophils # 8.02 10^3/uL (1.8-7.7); Nucleated Red Blood Cells % 0 %; Platelet Count 258 10^3/cmm (157-399); Red Blood Count 3.89 10^6/uL (3.85-5.65); Red Cell Distribution Width 16.9 % (12.1-15.1); White Blood Count 11.48 10^3/uL (3.29-11.43)
[2023-08-23 09:47] LABS: Alanine Aminotransferase 27 U/L (0-41); Albumin Level 2.6 g/dL (3.5-5.2); Alkaline Phosphatase 247 U/L (40-130); Anion Gap 13.4 (5-19); Aspartate Amino Transferase 21 U/L (0-40); Blood Urea Nitrogen 8 mg/dL (8-23); Calcium 7.9 mg/dL (8.5-10.5); Carbon Dioxide 24 mmol/L (22-29); Chloride 103 mmol/L (98-107); Globulin 2.8 g/dL (1.3-4.6); Glomerular Filtration Rate 136.5 mL/min (90-130); Glucose 99 mg/dL (65-115); Osmolality Calculated 282 mOsm/kg (285-295); Potassium 3.4 mmol/L (3.5-5.1); Sodium 137 mmol/L (136-145); Total Bilirubin 1.5 mg/dL (0.15-1.2); Total Protein 5.4 g/dL (6.6-8.7)
[2023-08-23] MEDS: palonosetron 0.25 mg/5 mL SDV IVP (12:12)
[2023-08-23] MEDS: dextrose 5% 250 ML 75 ML IV (12:12)
[2023-08-23] MEDS: DEXTROSE 5% IV ×3 (12:51→15:10)
[2023-08-23] MEDS: OXALIPLATIN IV (12:51)
[2023-08-23] MEDS: LEUCOVORIN IV (12:51)
[2023-08-23] MEDS: HYDROcodone-acetaminophen 10-325 mg Tablet 1 TAB PO (14:24)
[2023-08-23] MEDS: IRINOTECAN IV (15:10)
[2023-08-23] MEDS: atropine 1 mg/mL SDV 1 mL 0.400000000000000022 MG IV (15:10)
[2023-08-23 16:44] VITALS: BP 151/84; PULSE 78; TEMP 36.2; O2SAT 98
[2023-08-23] MEDS: fluorouraciL 4,700 MG in elastomeric pump 1 PUMP 2.04000000000000004 MG IV (16:44)
[2023-08-25 11:00] VITALS: BP 122/79; PULSE 99; RESP 16; TEMP 36.6; O2SAT 95
[2023-09-06 07:50] VITALS: BP 149/84; PULSE 91; RESP 16; TEMP 36.6; O2SAT 91
[2023-09-06 08:19] LABS: Eosinophils # 0.2 10^3/uL (0.0-0.8); Eosinophils % 6.5 %; Hematocrit 31.2 % (37-53); Lymphocytes # 1.2 10^3/uL (0.8-4.8); Lymphocytes % 39.8 %; Mean Corpuscular HGB Conc 32.7 g/dL (30-55); Mean Corpuscular Hemoglobin 26.9 pg (27-33); Mean Corpuscular Volume 82.3 fl (82-101); Mean Platelet Volume 8.6 fL (7.4-10.4); Monocytes # 0.4 10^3/uL (0.2-0.9); Monocytes % 11.7 %; Neutrophils # 1.28 10^3/uL (1.8-7.7); Neutrophils % 41.4 %; Nucleated Red Blood Cells % 0 %; Platelet Count 215 10^3/cmm (157-399); Red Blood Count 3.79 10^6/uL (3.85-5.65); Red Cell Distribution Width 16.9 % (12.1-15.1); White Blood Count 3.09 10^3/uL (3.29-11.43)
[2023-09-06 08:40] LABS: Alanine Aminotransferase 58 U/L (0-41); Albumin Level 2.7 g/dL (3.5-5.2); Alkaline Phosphatase 607 U/L (40-130); Anion Gap 13.7 (5-19); Aspartate Amino Transferase 55 U/L (0-40); Blood Urea Nitrogen 10 mg/dL (8-23); Calcium 8.2 mg/dL (8.5-10.5); Carbon Dioxide 24 mmol/L (22-29); Chloride 97 mmol/L (98-107); Creatinine Clr Calc Pharmacy 158.8227; Globulin 2.9 g/dL (1.3-4.6); Glomerular Filtration Rate 168.5 mL/min (90-130); Glucose 109 mg/dL (65-115); Osmolality Calculated 272 mOsm/kg (285-295); Potassium 3.7 mmol/L (3.5-5.1); Sodium 131 mmol/L (136-145); Total Bilirubin 1.1 mg/dL (0.15-1.2); Total Protein 5.6 g/dL (6.6-8.7)
[2023-09-06 09:15] LABS: Slide Review Slide Review Perform
[2023-09-06 09:22] LABS: Cancer Antigen 19 9 10.34 U/mL (0-35)
[2023-09-07 14:53] LABS: Bilirubin Urine Neg (Negative); Blood Urine 2+ (Negative); Glucose Urine UA Norm (Normal); Ketones Urine 1+ (Negative); Nitrate Urine Negative (Negative); Protein Urine Trace (Negative); Specific Gravity, Urine 1.015 (1.005-1.030); Urine Appearance Cloudy (CLEAR); Urine Color Yellow (Yellow); pH Urine 5 (5-7)
[2023-09-07 14:54] LABS: Add Urine Microscopic? YES; Bacteria Urine 1+ /hpf; Leukocyte Esterase Urine Negative (Negative); Mucus Urine 3+ /hpf; RBC Urine 0-4 /hpf (0-2); Squamous Epithelial Cell Urine 0-4 /hpf (0-5); Urobilinogen Urine Norm (Negative); WBC Urine 0-4 /hpf (0-5)
== END 2023-09-08 23:59 | disposition home or self-care (01) ==
PROVIDERS: PCP Nurse Practitioner Family; Visit Provider Nurse Practitioner Family
DX: Z53.9 Procedure and treatment not carried out, unspecified reason (principal)
CPT/HCPCS: 36591; 80053; 81001; 85025; 86301; 96365; 96367; 96368; 96374; 96375; 96413; 96415; 96416; 96417; 96523; J0461; J0640; J1100; J2469; J7060; J9190; J9206; J9263

== ENCOUNTER 2023-10-06 10:00 | Oncology outpatient (recurring) (ONCR) | payer MEDICAID, SELFPAY ==
[2023-09-13 08:03] VITALS: BMI 29.9
[2023-09-13 08:04] VITALS: BP 124/80; PULSE 80; RESP 16; TEMP 36.6; O2SAT 98
[2023-09-13 08:31] LABS: Basophils % 0.6 %; Eosinophils # 0.1 10^3/uL (0.0-0.8); Eosinophils % 1.8 %; Hematocrit 32.6 % (37-53); Lymphocytes # 2.1 10^3/uL (0.8-4.8); Mean Corpuscular HGB Conc 31.9 g/dL (30-55); Mean Corpuscular Hemoglobin 26.1 pg (27-33); Mean Corpuscular Volume 81.9 fl (82-101); Mean Platelet Volume 7.8 fL (7.4-10.4); Monocytes # 0.7 10^3/uL (0.2-0.9); Monocytes % 10.2 %; Neutrophils # 3.59 10^3/uL (1.8-7.7); Neutrophils % 53.6 %; Nucleated Red Blood Cells % 0 %; Platelet Count 374 10^3/cmm (157-399); Red Blood Count 3.98 10^6/uL (3.85-5.65); White Blood Count 6.69 10^3/uL (3.29-11.43)
[2023-09-13 08:51] LABS: Alanine Aminotransferase 24 U/L (0-41); Alkaline Phosphatase 561 U/L (40-130); Chloride 102 mmol/L (98-107); Potassium 4.2 mmol/L (3.5-5.1); Sodium 135 mmol/L (136-145)
[2023-09-13 09:18] LABS: Anion Gap 16.2 (5-19); Aspartate Amino Transferase 19 U/L (0-40); Blood Urea Nitrogen 7 mg/dL (8-23); Calcium 8.3 mg/dL (8.5-10.5); Carbon Dioxide 21 mmol/L (22-29); Creatinine Clr Calc Pharmacy 152.0076; Globulin 2.9 g/dL (1.3-4.6); Glomerular Filtration Rate 136.5 mL/min (90-130); Glucose 106 mg/dL (65-115); Osmolality Calculated 278 mOsm/kg (285-295); Total Bilirubin 0.7 mg/dL (0.15-1.2); Total Protein 5.9 g/dL (6.6-8.7)
[2023-09-13] MEDS: dextrose 5% 250 ML 75 ML IV (10:14)
[2023-09-13] MEDS: palonosetron 0.25 mg/5 mL SDV IVP (10:14)
[2023-09-13] MEDS: atropine 1 mg/mL SDV 1 mL 0.400000000000000022 MG IV (11:09)
[2023-09-13] MEDS: IRINOTECAN IV (11:26)
[2023-09-13] MEDS: DEXTROSE 5% IV ×2 (11:26→13:07)
[2023-09-13] MEDS: LEUCOVORIN IV (13:07)
[2023-09-13] MEDS: fosaprepitant 150 MG in sodium chloride 0.9% 150 ML 300 MG IV (15:59)
[2023-09-13 16:27] LABS: Magnesium 1.7 mg/dL (1.7-2.3)
[2023-09-13] MEDS: fluorouraciL 5,200 MG, elastomeric pump 1 PUMP in sodium chloride 0.9% (100 ml) 126 ML IV (16:35)
[2023-09-13] MEDS: fluorouraciL 50 mg/ml MDV 100 mL 850 MG IVP (16:35)
[2023-09-15 11:38] VITALS: BP 126/83; PULSE 68; TEMP 36.3; O2SAT 97
[2023-09-18 13:21] VITALS: BP 119/83; PULSE 82; RESP 16; TEMP 35.8; O2SAT 97
[2023-09-18] MEDS: sodium chloride 0.9% 1,000 ML 999 ML IV (13:28)
[2023-09-27 07:59] LABS: Eosinophils # 0.5 10^3/uL (0.0-0.8); Eosinophils % 14.5 %; Hematocrit 29.1 % (37-53); Lymphocytes # 2.4 10^3/uL (0.8-4.8); Lymphocytes % 70.1 %; Mean Corpuscular HGB Conc 31.6 g/dL (30-55); Mean Corpuscular Hemoglobin 25.7 pg (27-33); Mean Corpuscular Volume 81.3 fl (82-101); Mean Platelet Volume 9.2 fL (7.4-10.4); Monocytes # 0.2 10^3/uL (0.2-0.9); Monocytes % 6.1 %; Neutrophils % 9.3 %; Nucleated Red Blood Cells % 0 %; Platelet Count 147 10^3/cmm (157-399); Red Blood Count 3.58 10^6/uL (3.85-5.65); Red Cell Distribution Width 16.5 % (12.1-15.1); White Blood Count 3.45 10^3/uL (3.29-11.43)
[2023-09-27 08:28] LABS: Carcinoembryonic Antigen 12.2 ng/mL (0.0-4.7)
[2023-09-27 08:39] LABS: Alanine Aminotransferase 22 U/L (0-41); Albumin Level 3.1 g/dL (3.5-5.2); Alkaline Phosphatase 335 U/L (40-130); Anion Gap 16.9 (5-19); Aspartate Amino Transferase 28 U/L (0-40); Blood Urea Nitrogen 11 mg/dL (8-23); Calcium 8.6 mg/dL (8.5-10.5); Carbon Dioxide 22 mmol/L (22-29); Chloride 100 mmol/L (98-107); Creatinine Clr Calc Pharmacy 182.4091; Glomerular Filtration Rate 168.5 mL/min (90-130); Glucose 100 mg/dL (65-115); Osmolality Calculated 279 mOsm/kg (285-295); Potassium 3.9 mmol/L (3.5-5.1); Sodium 135 mmol/L (136-145); Total Bilirubin 0.6 mg/dL (0.15-1.2); Total Protein 6.1 g/dL (6.6-8.7)
[2023-09-27 08:59] LABS: Neutrophils # 0.32 10^3/uL (1.8-7.7)
[2023-09-27] MEDS: filgrastim-sndz 300 mcg/0.5 mL Syringe SUBCUT (10:08)
[2023-09-27 15:21] LABS: Cancer Antigen 19 9 55.73 U/mL (0-35)
[2023-09-28 09:47] LABS: Add Urine Microscopic? YES; Bilirubin Urine 1+ (Negative); Blood Urine Neg (Negative); Glucose Urine UA Norm (Normal); Ketones Urine 1+ (Negative); Leukocyte Esterase Urine Negative (Negative); Nitrate Urine Negative (Negative); Protein Urine Trace (Negative); Specific Gravity, Urine 1.025 (1.005-1.030); Urine Appearance Cloudy (CLEAR); Urine Color Dark Yellow (Yellow); Urobilinogen Urine Norm (Negative); pH Urine 5 (5-7)
[2023-09-28 09:56] LABS: Add Urine Culture? No; Bacteria Urine TRACE /hpf; Calcium Oxalate Crystals Urine >100 /hpf; Mucus Urine 4+ /hpf
[2023-09-28] MEDS: filgrastim-sndz 300 mcg/0.5 mL Syringe SUBCUT (10:12)
[2023-09-28 10:20] VITALS: BP 116/64; PULSE 74; RESP 16; TEMP 36.3; O2SAT 95
[2023-09-29] MEDS: sodium chloride 0.9% 500 ML 999 ML IV (10:08)
[2023-09-29] MEDS: filgrastim-sndz 300 mcg/0.5 mL Syringe SUBCUT (10:08)
[2023-09-29 10:10] VITALS: BP 123/88; PULSE 88; RESP 16; O2SAT 96
[2023-10-02 08:03] LABS: Hematocrit 32.2 % (37-53); Mean Corpuscular HGB Conc 31.4 g/dL (30-55); Mean Corpuscular Hemoglobin 25.3 pg (27-33); Mean Corpuscular Volume 80.7 fl (82-101); Mean Platelet Volume 8.4 fL (7.4-10.4); Platelet Count 510 10^3/cmm (157-399); Red Blood Count 3.99 10^6/uL (3.85-5.65); Red Cell Distribution Width 17.7 % (12.1-15.1)
[2023-10-02 08:20] LABS: Alanine Aminotransferase 17 U/L (0-41); Albumin Level 2.9 g/dL (3.5-5.2); Alkaline Phosphatase 319 U/L (40-130); Anion Gap 16.2 (5-19); Aspartate Amino Transferase 28 U/L (0-40); Blood Urea Nitrogen 10 mg/dL (8-23); Calcium 8.7 mg/dL (8.5-10.5); Carbon Dioxide 24 mmol/L (22-29); Chloride 101 mmol/L (98-107); Globulin 2.8 g/dL (1.3-4.6); Glomerular Filtration Rate 136.5 mL/min (90-130); Glucose 99 mg/dL (65-115); Osmolality Calculated 283 mOsm/kg (285-295); Potassium 4.2 mmol/L (3.5-5.1); Sodium 137 mmol/L (136-145); Total Bilirubin 0.5 mg/dL (0.15-1.2); Total Protein 5.7 g/dL (6.6-8.7)
[2023-10-02 08:22] LABS: Creatinine Clr Calc Pharmacy 130.0592
[2023-10-02 08:37] LABS: Slide Review Slide Review Perform; White Blood Count 38.25 10^3/uL (3.29-11.43)
[2023-10-02 08:41] LABS: Absolute Eosinophils 0.4 10^3/cmm (0.0-0.7); Eosinophils 1 %; Lymphocytes 19 %; Lymphocytes Absolute 7.3 10^3/cmm (1.2-3.4); Monocytes Absolute 1.1 10^3/cmm (0.1-0.6); Segmented Neutrophils 47 %; Total Cells Counted 100 (0-100)
[2023-10-02 08:42] LABS: Platelet Estimate Increased (Normal)
[2023-10-02] MEDS: dextrose 5% 250 ML 75 ML IV (09:53)
[2023-10-02] MEDS: palonosetron 0.25 mg/5 mL SDV IVP (09:53)
[2023-10-02] MEDS: dexamethasone 4 mg/mL INJ 5 mL 12 MG IVP (09:53)
[2023-10-02] MEDS: oxaliplatin 100 MG, oxaliplatin 60 MG in dextrose 5% 250 ML 141 MG IV (10:31)
[2023-10-02] MEDS: atropine 1 mg/mL SDV 1 mL 0.400000000000000022 MG IV (12:53)
[2023-10-02] MEDS: IRINOTECAN IV (13:08)
[2023-10-02] MEDS: DEXTROSE 5% IV ×2 (13:08)
[2023-10-02] MEDS: LEUCOVORIN IV (13:08)
[2023-10-02 14:24] VITALS: BP 150/93; PULSE 83; RESP 16; TEMP 35.9; O2SAT 96
[2023-10-02] MEDS: fluorouraciL 4,450 MG, elastomeric pump 1 PUMP in sodium chloride 0.9% (100 ml) 3 ML IV (14:41)
[2023-10-02 14:42] VITALS: BP 153/93; PULSE 85; RESP 16; TEMP 36.1; O2SAT 98
[2023-10-02 14:56] VITALS: RESP 17; O2SAT 96
[2023-10-02] MEDS: morphine 4 mg/mL SDV 1 mL SUBCUT (14:56)
[2023-10-02 15:37] VITALS: BP 112/76; PULSE 104; RESP 16; O2SAT 96
[2023-10-02 15:58] LABS: Ferritin 329 ng/mL (30-400); Iron 30 ug/dL (59-158); Percent Saturation 12.4 % (20-50); Total Iron Binding Capacity 241 mcg/dl; Unsaturated Iron Binding 211 ug/dL (112-347)
[2023-10-04] MEDS: sodium chloride 0.9% 1,000 ML 999 ML IV (13:40)
[2023-10-06 10:25] VITALS: BP 126/87; PULSE 90; RESP 16; TEMP 37.2; O2SAT 95
[2023-10-06] MEDS: sodium chloride 0.9% 1,000 ML 999 ML IV (10:41)
[2023-10-06 11:56] LABS: Basophils % 0.5 %; Eosinophils # 0.1 10^3/uL (0.0-0.8); Eosinophils % 1.4 %; Hematocrit 28.2 % (37-53); Lymphocytes # 1.4 10^3/uL (0.8-4.8); Lymphocytes % 15.9 %; Mean Corpuscular HGB Conc 32.3 g/dL (30-55); Mean Corpuscular Hemoglobin 25.8 pg (27-33); Mean Corpuscular Volume 79.9 fl (82-101); Mean Platelet Volume 8.1 fL (7.4-10.4); Monocytes # 0.1 10^3/uL (0.2-0.9); Neutrophils # 7.05 10^3/uL (1.8-7.7); Neutrophils % 80.2 %; Nucleated Red Blood Cells % 0 %; Platelet Count 146 10^3/cmm (157-399); Red Blood Count 3.53 10^6/uL (3.85-5.65); Red Cell Distribution Width 17.5 % (12.1-15.1); White Blood Count 8.79 10^3/uL (3.29-11.43)
[2023-10-06 11:58] VITALS: BP 142/88; PULSE 72; RESP 17; TEMP 36.7; O2SAT 97
[2023-10-06 12:21] LABS: Alanine Aminotransferase 14 U/L (0-41); Albumin Level 2.8 g/dL (3.5-5.2); Alkaline Phosphatase 300 U/L (40-130); Anion Gap 13.4 (5-19); Aspartate Amino Transferase 26 U/L (0-40); Blood Urea Nitrogen 12 mg/dL (8-23); Calcium 7.9 mg/dL (8.5-10.5); Carbon Dioxide 24 mmol/L (22-29); Chloride 99 mmol/L (98-107); Creatinine Clr Calc Pharmacy 195.0888; Globulin 2.6 g/dL (1.3-4.6); Glucose 107 mg/dL (65-115); Osmolality Calculated 274 mOsm/kg (285-295); Potassium 4.4 mmol/L (3.5-5.1); Sodium 132 mmol/L (136-145); Total Bilirubin 0.5 mg/dL (0.15-1.2); Total Protein 5.4 g/dL (6.6-8.7)
== END 2023-10-08 23:59 | disposition home or self-care (01) ==
PROVIDERS: Internal Medicine; PCP Nurse Practitioner Family; Visit Provider Nurse Practitioner Family
DX: Z53.9 Procedure and treatment not carried out, unspecified reason (principal); C78.5 Secondary malignant neoplasm of large intestine and rectum; C17.0 Malignant neoplasm of duodenum
CPT/HCPCS: 36591; 80053; 81001; 82378; 82728; 83540; 83550; 83735; 85007; 85025; 86301; 96360; 96367; 96368; 96372; 96375; 96411; 96413; 96415; 96416; 96417; 96523; J0461; J0640; J1100; J1453; J2270; J2469; J7030; J7040; J7060; J9190; J9206; J9263; Q5101

== ENCOUNTER 2023-10-30 10:35 | Outpatient (CLI) | payer MEDICAID, SELFPAY ==
--- NOTE | 2023-10-30 11:00 | MR_ITS ---
WS: [id number] MRI HEAD WITH CONTRAST TECHNIQUE: Sagittal T1, T2 axial, T2 axial FLAIR, axial susceptibility weighted imaging, axial diffus ion weighted images, and coronal T2 images were obtained. Pre and post-T1 axial and post T1 coronal i mages. ADC and FSPGR images. CLINICAL INFORMATION: delusions COMPARISON: None. FINDINGS: No evidence of restricted diffusion to suggest acute ischemia. Ventricular system and basal cisterns are patent. Mild small vessel changes. Mild parenchymal volume loss. Normal posterior fossa. Normal v ascular flow voids at the skull base. No extra-axial fluid collections. No evidence of mass or mass e ffect. Mild mucosal thickening in the RIGHT maxillary sinus and ethmoid air cells. Mastoid air cells are well aerated. No hemosiderin on the susceptibility weighted images. Normal optic chiasm and pituitary infundibulum. Mild symmetric atrophy temporal lobes and hippocampal formations. No abnormal gadolinium enhancement. Normal dural venous sinuses. No evidence of enhancing intracrania l metastatic disease. MR/MR head wo/w con [id number] IMPRESSION: 1. No evidence of restricted diffusion to suggest acute ischemia. 2. Mild small vessel changes with mild parenchymal volume loss. 3. No evidence of enhancing intracranial metastatic disease. 4. Mucosal thickening RIGHT maxillary sinus and RIGHT ethmoid air cells.
[2023-10-30] MEDS: gadobenate dimeglumine 20 mL vial IV (11:33)
== END 2023-10-30 10:36 | disposition home or self-care (01) ==
LOC: RAD 10:35
PROVIDERS: PCP Nurse Practitioner Family; Visit Provider Nurse Practitioner Family
DX: C25.9 Malignant neoplasm of pancreas, unspecified (principal); G93.89 Other specified disorders of brain; J34.89 Other specified disorders of nose and nasal sinuses; G31.89 Other specified degenerative diseases of nervous system
CPT/HCPCS: 70553; A9577

== ENCOUNTER 2023-10-30 11:56 | Day surgery (SDC) | payer MEDICAID, SELFPAY ==
--- NOTE | 2023-10-30 12:01 | US_ITS ---
WS: [id number] ULTRASOUND-GUIDED PARACENTESIS CLINICAL INFORMATION: Ascites COMPARISON: None. Procedure Informed consent: The risks, benefits, and alternatives of the procedure were discussed with the shelli ent. Verbal and written consent was obtained. Timeout: A timeout was performed to confirm the correct patient, procedure, and site. Preparation: A suitable skin site was identified. The patient was prepped and draped in usual sterile fashion. Lidocaine 1% was used for local anesthesia. Catheter: 4 Romanian One-step Yueh catheter. Side: LEFT lower quadrant. Fluid Volume: 6870 ml Color: Clear yellow DISPOSITION: Discarded safely. Complications: None. Patient disposition: Discharged from the department in stable condition. US/US paracentesis abd w [id number] IMPRESSION: Uncomplicated ultrasound-guided paracentesis. Removal of 6870 cc
[2023-10-30 12:07] VITALS: BP 136/98; PULSE 105; RESP 18; TEMP 36.6; O2SAT 99
== END 2023-10-30 13:19 | disposition home or self-care (01) ==
LOC: GILAB 11:57
PROVIDERS: Radiology Neuroradiology; PCP Nurse Practitioner Family; Visit Provider Internal Medicine Medical Oncology
PROC: (CPT 49082; principal; 2023-10-30 12:30)
DX: R18.8 Other ascites (principal)
CPT/HCPCS: 49083

== ENCOUNTER 2023-11-06 10:05 | Day surgery (SDC) | payer MEDICAID, SELFPAY ==
--- NOTE | 2023-11-06 10:09 | US_ITS ---
WS: [id number] ULTRASOUND-GUIDED THERAPEUTIC PARACENTESIS Procedure, risks, and complications have been explained to the patient. Consent is obtained. Utilizing aseptic technique and 1% buffered lidocaine, a small dermatome was made through which a 5 F rench Yueh catheter was inserted. Approximately 5900 ml of clear peritoneal fluid was obtained witho ut difficulty. No complications encountered. US/US paracentesis abd w [id number] IMPRESSION: Uncomplicated paracentesis yielding 5900 ml of peritoneal fluid.
[2023-11-06 10:17] VITALS: BP 110/85; PULSE 107; RESP 16; TEMP 36.2; O2SAT 98; BMI 18.8
== END 2023-11-06 11:57 | disposition home or self-care (01) ==
PROVIDERS: Radiology Diagnostic Radiology; PCP Nurse Practitioner Family; Visit Provider Nurse Practitioner Family
PROC: (CPT 49082; principal; 2023-11-06 11:30)
DX: C25.9 Malignant neoplasm of pancreas, unspecified (principal)
CPT/HCPCS: 49083

== ENCOUNTER 2023-11-06 11:30 | Oncology outpatient (recurring) (ONCR) | payer MEDICAID, SELFPAY ==
[2023-10-09] MEDS: sodium chloride 0.9% 1,000 ML 999 ML IV (15:01)
[2023-10-09 15:09] VITALS: BP 119/76; PULSE 79; RESP 17; TEMP 36.2; O2SAT 97
[2023-10-09 16:10] VITALS: BP 135/87; PULSE 75; RESP 16; TEMP 36.6; O2SAT 95
[2023-10-11 09:01] VITALS: BP 124/74; PULSE 90; RESP 16; TEMP 36.5; O2SAT 98
[2023-10-11 11:11] VITALS: BP 124/84; PULSE 83; O2SAT 98
[2023-10-13 10:01] VITALS: BP 99/67; PULSE 85; RESP 16; TEMP 36.8; O2SAT 98
[2023-10-13] MEDS: sodium chloride 0.9% 1,000 ML 999 ML IV (10:30)
[2023-10-13 11:37] VITALS: BP 121/77; PULSE 73; RESP 16; TEMP 37; O2SAT 95
[2023-10-16 08:29] LABS: Basophils % 0.2 %; Eosinophils # 0.5 10^3/uL (0.0-0.8); Eosinophils % 9.1 %; Mean Corpuscular Hemoglobin 25.3 pg (27-33); Mean Corpuscular Volume 81.5 fl (82-101); Monocytes # 0.7 10^3/uL (0.2-0.9); Monocytes % 12.9 %; Neutrophils % 38.6 %; Nucleated Red Blood Cells % 0 %; Platelet Count 285 10^3/cmm (157-399); Red Blood Count 3.56 10^6/uL (3.85-5.65); Red Cell Distribution Width 19.2 % (12.1-15.1); White Blood Count 5.18 10^3/uL (3.29-11.43)
[2023-10-16 08:54] LABS: Carcinoembryonic Antigen 10.1 ng/mL (0.0-4.7)
[2023-10-16 09:05] LABS: Alanine Aminotransferase 10 U/L (0-41); Albumin Level 2.9 g/dL (3.5-5.2); Alkaline Phosphatase 237 U/L (40-130); Aspartate Amino Transferase 18 U/L (0-40); Blood Urea Nitrogen 14 mg/dL (8-23); Calcium 8.2 mg/dL (8.5-10.5); Carbon Dioxide 21 mmol/L (22-29); Chloride 100 mmol/L (98-107); Globulin 2.9 g/dL (1.3-4.6); Glomerular Filtration Rate 136.5 mL/min (90-130); Glucose 103 mg/dL (65-115); Osmolality Calculated 275 mOsm/kg (285-295); Sodium 132 mmol/L (136-145); Total Bilirubin 0.5 mg/dL (0.15-1.2); Total Protein 5.8 g/dL (6.6-8.7)
[2023-10-16 13:37] VITALS: BP 124/77; PULSE 81; RESP 16; O2SAT 95
[2023-10-16] MEDS: iron sucrose 200 MG in sodium chloride 0.9% (100 ml) 100 ML 220 MG IV (13:38)
[2023-10-16] MEDS: sodium chloride 0.9% 250 ML 75 ML IV (13:38)
[2023-10-16 14:30] VITALS: BP 123/86; PULSE 86; RESP 16; O2SAT 95
[2023-10-18 09:37] VITALS: BP 111/76; PULSE 100; RESP 18; TEMP 36.8; O2SAT 98
[2023-10-18] MEDS: iron sucrose 200 MG in sodium chloride 0.9% (100 ml) 100 ML 220 MG IV (10:02)
[2023-10-18] MEDS: sodium chloride 0.9% 250 ML 75 ML IV (10:02)
[2023-10-18 11:24] VITALS: BP 125/83; PULSE 77; TEMP 36.2; O2SAT 97
[2023-10-20] MEDS: sodium chloride 0.9% 1,000 ML 50 ML IV (09:26)
[2023-10-20] MEDS: iron sucrose 200 MG in sodium chloride 0.9% (100 ml) 100 ML 220 MG IV (09:26)
[2023-10-20 11:20] VITALS: BP 120/78; PULSE 79; RESP 17; TEMP 36.3; O2SAT 100
[2023-10-23 08:21] VITALS: BP 124/82; PULSE 108; RESP 20; TEMP 36.6; O2SAT 96
[2023-10-24 08:22] LABS: Basophils # 0.1 10^3/uL (0.0-0.1); Basophils % 0.7 %; Eosinophils # 0.4 10^3/uL (0.0-0.8); Eosinophils % 2.7 %; Hematocrit 32.1 % (37-53); Lymphocytes # 2.8 10^3/uL (0.8-4.8); Lymphocytes % 18.7 %; Mean Corpuscular HGB Conc 31.5 g/dL (30-55); Mean Corpuscular Hemoglobin 25.6 pg (27-33); Mean Corpuscular Volume 81.5 fl (82-101); Mean Platelet Volume 8.2 fL (7.4-10.4); Monocytes # 1.3 10^3/uL (0.2-0.9); Monocytes % 8.7 %; Neutrophils # 10.07 10^3/uL (1.8-7.7); Neutrophils % 67.7 %; Nucleated Red Blood Cells % 0 %; Platelet Count 476 10^3/cmm (157-399); Red Blood Count 3.94 10^6/uL (3.85-5.65); Red Cell Distribution Width 20.8 % (12.1-15.1); White Blood Count 14.88 10^3/uL (3.29-11.43)
--- NOTE | 2023-10-24 08:30 | PETR_ITS ---
PROCEDURE INFORMATION: Exam: PET/CT Skull Base to Mid-thigh Exam date and time: 10/24/2023 8:48 AM Age: 63 years old Clinical indication: Condition or disease and abnormal findings; Increasing ca19-9 markers; Prior surgery; Surgery date: 6+ months; Surgery type: Port; Patient HX: Neoplasm pancreas; Additional info: Increasing ca19-9 markers and restaging LABS AND CLINICAL REPORTS: Glucose: 83 mg/dl Treatment strategy for malignancy (PET staging): Restaging (PS) TECHNIQUE: Imaging protocol: Following at least four-hour fasting and following the injection of radiopharmaceutical, low dose CT images were obtained. Then, PET images were obtained. Attenuation corrected images were constructed using the CT scan. Fused images of PET and CT were reviewed. The standardized uptake values (SUV) reported below are maximum values within a region of interest, expressed in gm/ml. Exam includes orbital meatal line to mid-thigh. Radiopharmaceutical: 12.5 mCi F-18 FDG (Fluorodeoxyglucose), IV. Time of imaging post radiopharmaceutical administration: 1 hour Injection site: Left port COMPARISON: CT abdomen pelvis w con* [id number] 08/08/2023 5:30 PM, CT chest, abdomen and pelvis 07/07/2023 FINDINGS: Tubes, catheters and devices: A left subclavian central venous port catheter terminates in the SVC. Uptake in the region of the distal catheter is likely related to the radiotracer injection through the port. Brain: Visualized brain has normal physiologic uptake. Paranasal sinuses: There is moderate mucosal thickening of the right maxillary sinus with mild uptake, SUV max 2.5, likely inflammatory or infectious in etiology. Non radiotracer avid moderate mucosal thickening of the right sphenoid sinus is present. Pharynx: No abnormal uptake. Larynx: No abnormal uptake. Lungs, pleura and trachea: No abnormal uptake. A small left pleural effusion is present. A similar solid anterior right middle lobe nodule is not radiotracer avid measuring 4 mm on series 3, image 105. A calcified granuloma in the right lower lobe is noted. Non radiotracer avid mild dependent streaky density in the left lower lobe is noted, likely related to atelectasis. Heart: Normal physiologic uptake. Mediastinal space: No abnormal uptake. Liver: Diffuse hypodensity of the liver is noted consistent with steatosis. Moderate similar intrahepatic biliary ductal gas is present. A subtle focus of elevated uptake within the right liver lobe is noted laterally, SUV max 2.7 on series 3, image 140 without a well-defined lesion in this area on the noncontrast CT images. Gallbladder and biliary ducts: No abnormal uptake. Gas in the lumen of the gallbladder is present. Pancreas: The pancreatic duct appears moderately distended. Uptake in the region of the mid duodenal stent demonstrating an SUV max 3.3 on image 171 associated with ill-defined adjacent regions of soft tissue density in this area likely corresponding to the previously noted pancreatic head mass and possibly the adjacent duodenal wall measuring approximately 1.6 x 1.2 cm on series 3, image 171. Spleen: No abnormal uptake. Adrenal glands: No abnormal uptake. Kidneys and ureters: Normal physiologic uptake. Stomach and bowel: There is a duodenal stent with uptake in the region of the stent discussed further in the Pancreas section above. A radiodense structure in the proximal duodenum is noted on series 3, image 158 possibly representing an ingested pill. A device likely representing a cystogastrostomy stent is noted in the region of the distal stomach and pancreatic head. A surgical staple line in the right colon is noted associated with partial right colectomy. An ovoid radiodense Intraperitoneal and retroperitoneal spaces: Large ascites. Ill-defined soft tissue density in the lower abdominal omentum on series 3, image 187 measures 3.6 x 2.0 cm, SUV max 3.6. A small soft tissue density nodular focus in this area currently measures 1.2 cm on image 191 (previously 0.[address] of 08/08/2023. Vasculature: No abnormal uptake. Lymph nodes: No abnormal uptake. Small scattered mesenteric lymph nodes are present without significant uptake. Skeleton: No abnormal uptake in the visualized axial and appendicular skeleton. There is mild diffuse vertebral body spondylosis. Soft tissues: A thin walled fluid collection along the left pelvic sidewall measures 2.4 x 1.5 cm (previously 2.7 x 2.[address] of 08/08/2023), with elevated uptake at its superomedial aspect, SUV max 3.3 on image 217. A large amount of ascites is present. METRICS: Mediastinal blood pool: SUV max 1.8, SUV mean 1.5 PET/PET skull to thigh INIT [id number] IMPRESSION: 1. Elevated uptake along the course of the duodenal stent is noted in the region of the previously noted pancreatic head mass with likely involvement of the duodenal wall concerning for possible residual or recurrent malignancy. Increased soft tissue density in the omental fat with elevated uptake compatible with malignant implants. 2. Large ascites. 3. Interval decrease in size of fluid collection along the left pelvic sidewall. Elevated uptake at its superomedial aspect is noted which may be inflammatory or malignant in etiology. 4. A focus of mild uptake within the right liver lobe is noted for which a hypermetabolic metastatic lesion cannot be excluded. 5. Similar non radiotracer avid right middle lobe pulmonary nodule. 6. Additional nonurgent findings as detailed above.
[2023-10-24 08:39] LABS: Alanine Aminotransferase 11 U/L (0-41); Albumin Level 2.8 g/dL (3.5-5.2); Alkaline Phosphatase 262 U/L (40-130); Anion Gap 17.2 (5-19); Aspartate Amino Transferase 18 U/L (0-40); Blood Urea Nitrogen 19 mg/dL (8-23); Calcium 8.3 mg/dL (8.5-10.5); Carbon Dioxide 20 mmol/L (22-29); Chloride 100 mmol/L (98-107); Creatinine Clr Calc Pharmacy 154.8915; Globulin 3.3 g/dL (1.3-4.6); Glomerular Filtration Rate 168.5 mL/min (90-130); Glucose 118 mg/dL (65-115); Osmolality Calculated 279 mOsm/kg (285-295); Potassium 4.2 mmol/L (3.5-5.1); Sodium 133 mmol/L (136-145); Total Bilirubin 0.4 mg/dL (0.15-1.2); Total Protein 6.1 g/dL (6.6-8.7)
[2023-10-24] MEDS: iron sucrose 200 MG in sodium chloride 0.9% (100 ml) 100 ML 220 MG IV (10:44)
[2023-10-24 10:49] VITALS: BP 108/74; PULSE 91; RESP 16; TEMP 36.8; O2SAT 97
[2023-10-24 12:07] VITALS: RESP 16
[2023-10-24] MEDS: morphine 4 mg/mL SDV 1 mL SUBCUT (12:07)
[2023-10-24 12:57] VITALS: BP 121/77; PULSE 82; RESP 16; O2SAT 96
[2023-10-26 13:30] VITALS: BP 130/89; PULSE 95; RESP 16; O2SAT 96
[2023-10-26] MEDS: sodium chloride 0.9% 250 ML 75 ML IV (13:44)
[2023-10-26] MEDS: iron sucrose 200 MG in sodium chloride 0.9% (100 ml) 100 ML 220 MG IV (13:44)
[2023-10-26 15:45] VITALS: BP 143/91; PULSE 87; RESP 16; O2SAT 94
[2023-10-31 11:46] VITALS: BP 116/77; PULSE 89; RESP 17; TEMP 36.9; O2SAT 95
[2023-11-06 13:54] VITALS: BP 100/64; PULSE 104; RESP 16; TEMP 36.4; O2SAT 95
== END 2023-11-08 23:59 | disposition home or self-care (01) ==
PROVIDERS: PCP Nurse Practitioner Family; Visit Provider Nurse Practitioner Family
DX: Z53.9 Procedure and treatment not carried out, unspecified reason; D50.9 Iron deficiency anemia, unspecified; Z79.899 Other long term (current) drug therapy
CPT/HCPCS: 78815; 80053; 82378; 85025; 86301; 96360; 96365; 96366; 96367; 96372; A9552; J1756; J2270; J7030; J7050

== ENCOUNTER 2023-11-09 10:57 | Day surgery (SDC) | payer MEDICAID, SELFPAY ==
--- NOTE | 2023-11-09 11:09 | US_ITS ---
WS: [id number] ULTRASOUND-GUIDED THERAPEUTIC AND DIAGNOSTIC PARACENTESIS Procedure, risks, and complications have been explained to the patient. Consent is obtained. Utilizing aseptic technique and 1% buffered lidocaine, a small dermatome was made through which a 5 F rench Yueh catheter was inserted. Approximately 2100 ml of clear peritoneal fluid was obtained witho ut difficulty. No complications encountered. US/US paracentesis abd w [id number] IMPRESSION: Uncomplicated paracentesis yielding 2100 ml of peritoneal fluid.
[2023-11-09 11:11] VITALS: BP 111/79; PULSE 104; RESP 16; TEMP 36.2; O2SAT 99
== END 2023-11-09 12:55 | disposition home or self-care (01) ==
LOC: GILAB 10:57
PROVIDERS: Radiology Diagnostic Radiology; PCP Nurse Practitioner Family; Visit Provider Nurse Practitioner Family
PROC: (CPT 49082; principal; 2023-11-09 12:00)
DX: R18.8 Other ascites (principal)
CPT/HCPCS: 49083

== ENCOUNTER 2023-11-09 12:49 | Oncology outpatient (recurring) (ONCR) | payer MEDICAID, SELFPAY ==
[2023-11-09 13:25] VITALS: BP 105/75; PULSE 98; RESP 18; TEMP 36.3; O2SAT 98
[2023-11-09 15:28] VITALS: BP 127/77; PULSE 91; TEMP 35.9; O2SAT 99
== END 2023-11-14 23:59 | disposition home or self-care (01) ==
PROVIDERS: PCP Nurse Practitioner Family; Visit Provider Nurse Practitioner Family
DX: Z51.11 Encounter for antineoplastic chemotherapy; C25.9 Malignant neoplasm of pancreas, unspecified; C78.7 Secondary malignant neoplasm of liver and intrahepatic bile duct; Z79.899 Other long term (current) drug therapy
CPT/HCPCS: 96365; 96366; J7030